=== PATIENT | female | born 2000 | race Caucasian/White ===

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

== ENCOUNTER 2020-07-24 14:36 | Emergency (ER) | payer BC, SELFPAY ==
[2020-07-24 14:41] VITALS: BP 122/81; PULSE 104; RESP 12; TEMP 36.5; O2SAT 100
[2020-07-24 14:45] VITALS: BP 122/81; PULSE 104; RESP 12; TEMP 36.5; O2SAT 100
--- NOTE | 2020-07-24 14:57 | ED.ALLEREA ---
HPI - Allergic Reaction General Chief complaint: Allergic Reaction Stated complaint: HIVES Time Seen by Provider: 07/24/20 14:38 Source: patient Mode of arrival: ambulatory Limitations: no limitations History of Present Illness HPI narrative: 19-year-old [facility] of hives to her bilateral upper and lower eyelids since this morning. Patient took Claritin at 5 AM today for her symptoms. Patient reports history of hives in the past. Patient is currently wearing make-up but reports that she has not changed her make-up for the last 3 months. Patient denies new medications, new soaps or new detergents. Patient denies shortness of breath, wheezing, difficulty swallowing or trouble breathing MD complaint: hives Onset (ago): hour(s) (6) Exposure: unknown Symptoms: rash and itching Severity: mild Treatment prior to arrival: other (Claritin) Previous Allergic Reaction History: none Related Data Home Medications Medication Instructions Recorded Confirmed cetirizine [Zyrtec] 10 mg PO DAILY 11/20/19 07/24/20 bupropion HCl 150 mg PO DAILY 07/24/20 07/24/20 meloxicam 15 mg PO DAILY 07/24/20 07/24/20 tranexamic acid 1,300 mg PO TID 07/24/20 07/24/20 Allergies Allergy/AdvReac Type Severity Reaction Status Date / Time bacitracin Allergy Mild Rash Verified 11/20/19 12:12 [From Neosporin ([id number])] neomycin Allergy Mild Rash Verified 11/20/19 12:12 [From Neosporin ([id number])] polymyxin B Allergy Mild Rash Verified 11/20/19 12:12 [From Neosporin ([id number])] shellfish derived Allergy sob/throat Verified 11/20/19 12:12 swelling Review of Systems Review of Systems: All systems reviewed & are unremarkable except as noted in HPI and below Constitutional: Constitutional: Denies chills, Denies fatigue, Denies fever(s) and Denies weakness ENT: Denies dysphagia, Denies epistaxis and Denies sore throat Respiratory: Respiratory: Denies cough, Denies dyspnea and Denies wheezing Gastrointestinal: Gastrointestinal: Denies diarrhea, Denies nausea and Denies vomiting Integumentary/Breasts: Skin/Breast: Reports rash and Denies skin ulcer Neurologic: Denies vertigo, Denies dizziness, Denies syncope and Denies focal weakness Endocrine: Endocrine: Denies fatigue Allergic/Immunologic: Allergic/Immunologic: Denies lip swelling, Denies throat swelling, Denies tongue swelling and Denies wheezing PMFSH Past Medical History Medical History (Updated 07/24/20 @ 15:04 by Dolores Shahid APRN) Allergies Arthralgia of hip Asthma Implanon in place Kidney infection Tonsillectomy planned Surgical History Surgical History (Updated 07/24/20 @ 15:01 by Dolores Shahid APRN) H/O total hip arthroplasty [place] teeth extracted Social History Social History Smoking status: Never smoker Gender identity (if verbalized by the patient): Female Comments At time of signature, I agree with nursing past medical, surgical, social and family history. There is no relevant family history pertinent to the presenting complaint. Exam Const: General: no acute distress and alert Nutritional Appearance: well nourished Orientation/consciousness: patient oriented x3 HENMT: Head: normal to inspection Mouth: Yes Normal oral and palatal mucosa present and Yes moist mucous membranes Throat: posterior oropharynx normal and uvula midline Neck: Neck: normal visual inspection Resp: Effort & Inspection: normal respiratory effort, not labored, not tachypneic and no use of accessory muscles Auscultation: clear to auscultation bilaterally, no rales and no wheezes Cardio: Rate: regular rate, not bradycardic and not tachycardic Rhythm: regular rhythm and regular rhythm Heart sounds: no murmurs Skin: General skin exam: normal color, no jaundice and no pallor Wounds: no wounds Other: Mildly urticaria noted to bi
== END 2020-07-24 15:08 | disposition home or self-care (01) ==
PROVIDERS: Emergency Provider Nurse Practitioner Family
DX: L50.9 Urticaria, unspecified (principal); J45.909 Unspecified asthma, uncomplicated; D68.0 Von Willebrand disease
CPT/HCPCS: 99213; G0463

== ENCOUNTER 2020-07-25 14:27 | Emergency (ER) | payer BC, SELFPAY ==
[2020-07-25 14:33] VITALS: BP 126/86; PULSE 134; RESP 20; TEMP 37.2; O2SAT 100
--- NOTE | 2020-07-25 14:44 | ED.SKABFB ---
HPI - Skin/Abscess/Foreign Bdy General Chief complaint: Skin/Abscess/Foreign Body Stated complaint: rash Time Seen by Provider: 07/25/20 14:44 Source: patient and RN notes reviewed Mode of arrival: ambulatory Limitations: no limitations History of Present Illness HPI narrative: 19 year old female who presents to [facility] care with complaints of increase blotchy urticaria rash to her forearms and right hip region of body, with itching and bilateral eye edema. Patient states that she was seen here yesterday and was placed on Medrol dose pack and did take medication but rash is more severe today than yesterday. Patient states that she is on daily Zyrtec and has taken that medication also today for history of environmental allergies. Patient states that the only medication change in the past few weeks is the start of Wellbutrin about three weeks ago, denies any new foods, lotions, soaps or any new makeup. Patient denies feelings of dyspnea or any difficulty swallowing MD complaint: rash Tetanus up to date: yes Quality: pruritic Relieving factors: none Associated symptoms: itching Treatments prior to arrival: Benadryl, corticosteroid and other (Zyrtec) Related Data Home Medications Medication Instructions Recorded Confirmed cetirizine [Zyrtec] 10 mg PO DAILY 11/20/19 07/25/20 bupropion HCl 150 mg PO DAILY 07/24/20 07/25/20 meloxicam 15 mg PO DAILY 07/24/20 07/25/20 tranexamic acid 1,300 mg PO TID 07/24/20 07/25/20 sumatriptan succinate 50 mg PO .PRN 07/25/20 07/25/20 Allergies Allergy/AdvReac Type Severity Reaction Status Date / Time bacitracin Allergy Mild Rash Verified 11/20/19 12:12 [From Neosporin ([id number])] neomycin Allergy Mild Rash Verified 11/20/19 12:12 [From Neosporin ([id number])] polymyxin B Allergy Mild Rash Verified 11/20/19 12:12 [From Neosporin ([id number])] adhesive tape Allergy Rash Verified 07/25/20 15:20 shellfish derived Allergy sob/throat Verified 11/20/19 12:12 swelling Review of Systems Review of Systems: Narrative: CONSTITUTIONAL: Denies fever, chills, or sweats. EYES: Denies visual changes, redness, or discharge.reports that eyes feel swollen. no redness or rash noted around eyes or on face or neck ENT: Denies rhinorrhea, congestion, sore throat, or otalgia. CARDIOVASCULAR: Denies chest pain, palpitations, or edema. RESPIRATORY: Denies cough or dyspnea. GASTROINTESTINAL: Denies abdominal pain, nausea, vomiting, or diarrhea. GENITOURINARY: Denies dysuria or hematuria. SKIN: positive for blotchy red urticaria type of rash with itching to forearms and right hip region.. MUSCULOSKELETAL: Denies back pain, joint pain, or myalgia. NEUROLOGIC: Denies headache, numbness, or weakness. PSYCHIATRIC: Positive for anxiety or depression. All systems reviewed & are unremarkable except as noted in HPI and below PMFSH Past Medical History Medical History (Updated 07/26/20 @ 14:52 by Estrellita Trinh NP) Allergies Arthralgia of hip Asthma Implanon in place Kidney infection Von Willebrand's disease Surgical History Surgical History (Updated 07/25/20 @ 17:54 by Estrellita Trinh NP) H/O total hip arthroplasty labral tear History of tonsillectomy and adenoidectomy [place] teeth extracted Family History Family History (Updated 07/25/20 @ 17:53 by Estrellita Trinh NP) Mother Von Willebrands disease Social History Social History (Updated 07/25/20 @ 17:55 by Estrellita Trinh NP) Smoking status: Never smoker Occupation/Education: student Gender identity (if verbalized by the patient): Female Comments At time of signature, agree with nursing past medical, surgical, social and family history. There is no relevant family history pertinent to the presenting complaint Exam Narrative: Exam Narrative: GENERAL: Well-appearing, well-nourished, and in no acute distress. HEAD: Normocephalic, atraumatic. EYES: PERRLA and EOMI. ENT: Nares clear, no r
[2020-07-25] MEDS: methylPREDNISolone ACETATE 80 MG/ML VIAL IM (15:02)
--- NOTE | 2020-07-25 15:18 | PC.NURSE ---
Pt sitting quietly on exam table. No distress noted. Pt calm. Reports itching still present but she is aware will take a bit to resolve.
[2020-07-25 15:30] VITALS: BP 102/68; PULSE 100; RESP 18; O2SAT 100
== END 2020-07-25 15:32 | disposition home or self-care (01) ==
PROVIDERS: Emergency Provider Registered Nurse
DX: L50.9 Urticaria, unspecified (principal); J45.909 Unspecified asthma, uncomplicated; D68.0 Von Willebrand disease; Z96.641 Presence of right artificial hip joint
CPT/HCPCS: 96372; 99213; G0463; J1040

== ENCOUNTER 2021-02-07 08:01 | Emergency (ER) | payer BC, SELFPAY ==
[2021-02-07 08:10] VITALS: BP 125/81; PULSE 83; RESP 16; TEMP 36.6; O2SAT 100
--- NOTE | 2021-02-07 08:10 | ED.EYEPROB ---
HPI - Eye Problem General Chief complaint: Eye Problems Stated complaint: pink eye Source: patient Mode of arrival: ambulatory Limitations: no limitations History of Present Illness HPI Narrative: Patient is a 20-year-old female who presents with right eye redness and discharge starting this a.m. Patient reports photophobia and burning. She reports using saline eyedrops this a.m. without relief. She reports removing her contacts this a.m. as she slept in the last night. She denies significant medical history. She denies all other complaints at this time. chief complaint: eye pain and eye redness Related Data Home Medications Medication Instructions Recorded Confirmed bupropion HCl 150 mg PO DAILY 07/24/20 07/25/20 meloxicam 15 mg PO DAILY 07/24/20 07/25/20 tranexamic acid 1,300 mg PO TID 07/24/20 07/25/20 sumatriptan succinate 50 mg PO .PRN 07/25/20 07/25/20 Allergies Allergy/AdvReac Type Severity Reaction Status Date / Time bacitracin Allergy Mild Rash Verified 11/20/19 12:12 [From Neosporin ([id number])] neomycin Allergy Mild Rash Verified 11/20/19 12:12 [From Neosporin ([id number]-[id number])] polymyxin B Allergy Mild Rash Verified 11/20/19 12:12 [From Neosporin (ori-iry-jhaav)] adhesive tape Allergy Rash Verified 07/25/20 15:20 shellfish derived Allergy sob/throat Verified 11/20/19 12:12 swelling Review of Systems Review of Systems: Narrative: CONSTITUTIONAL: Denies fever, chills, or sweats. EYES: Denies visual changes, reports redness and discharge to right eye. ENT: Denies rhinorrhea, congestion, sore throat, or otalgia. CARDIOVASCULAR: Denies chest pain, palpitations, or edema. RESPIRATORY: Denies cough or dyspnea. GASTROINTESTINAL: Denies abdominal pain, nausea, vomiting, or diarrhea. GENITOURINARY: Denies dysuria or hematuria. SKIN: Denies rash or itching. MUSCULOSKELETAL: Denies back pain, joint pain, or myalgia. NEUROLOGIC: Denies headache, numbness, dizziness, or weakness. PSYCHIATRIC: Denies anxiety or depression. [facility] Past Medical History Medical History Allergies Arthralgia of hip Asthma Implanon in place Kidney infection Von Willebrand's disease Surgical History Surgical History H/O total hip arthroplasty labral tear History of tonsillectomy and adenoidectomy [place] teeth extracted Family History Family History Mother Von Willebrands disease Social History Social History Smoking status: Never smoker Gender identity (if verbalized by the patient): Female Comments At the time of signature, I have reviewed and agree with nursing past medical, surgical, social, and family history unless otherwise noted. Please see nursing chart for further information. There is no relevant family history pertinent to the presenting complaint. Exam Narrative: Exam Narrative: GENERAL: Well-appearing, well-nourished, and in no acute distress. HEAD: Normocephalic, atraumatic. EYES: EOMI. right eye sclera injected, discharge noted. Conjunctiva injected on right eye. ENT: Mucous membranes pink and moist. Nares clear. No rhinorrhea. TMs normal bilaterally. Throat normal. Uvula midline. NECK: AROM. Supple. No lymphadenopathy. CHEST: No respiratory distress. HEART: Regular rate and rhythm. EXTREMITIES: Normal range of motion. No edema. SKIN: Warm, dry, no rash. NEURO: No focal deficits. Alert and oriented x3. Gait steady. PSYCH: Normal affect. No signs of depression or anxiety. Course Vital Signs Vital signs: Reviewed Procedures Other Procedure Procedure 1: Other Procedure: Right eye was anesthetized with 1 drop of tetracaine and anesthesia was achieved. The eye was flushed with eyewash. Lid was inverted and examined. Moist
== END 2021-02-07 08:37 | disposition home or self-care (01) ==
PROVIDERS: Emergency Provider Nurse Practitioner
DX: H18.821 Corneal disorder due to contact lens, right eye (principal); M16.10 Unilateral primary osteoarthritis, unspecified hip; J45.909 Unspecified asthma, uncomplicated; D68.0 Von Willebrand disease
CPT/HCPCS: 99213; A9270; G0463

== ENCOUNTER 2024-03-17 10:45 | Emergency (ER) | payer BC, SELFPAY ==
[2024-03-17 10:53] VITALS: BP 127/88; PULSE 118; RESP 16; TEMP 37.6; O2SAT 100
--- NOTE | 2024-03-17 10:55 | ED.FEMALEGU ---
HPI - Female Genitourinary General Chief complaint: Urogenital-Female Stated complaint: uti Time Seen by Provider: 03/17/24 10:55 Source: patient Mode of arrival: ambulatory Limitations: no limitations History of Present Illness HPI Narrative: Citlali is a 23-year-old female patient presenting to the clinic today with complaints of possible urinary tract infection. She reports symptoms started morning of this week. States she had intercourse on Tuesday night. She also would like STI testing done as this was with a new partner. States that the condom broke during intercourse as have the Nexplanon and her periods are very regular. Did take Plan B. is experiencing burning with urination, frequency, and urgency. She denies any fever, chills, body aches, abdomen pain, or back pain. Denies any vaginal discharge or odor. Related Data Home Medications Medication Instructions Recorded Confirmed bupropion HCl 150 mg 24 hr tablet, 150 mg PO DAILY 07/24/20 07/25/20 extended release meloxicam 15 mg tablet 15 mg PO DAILY 07/24/20 07/25/20 tranexamic acid 650 mg tablet 1,300 mg PO TID during menses 07/24/20 07/25/20 sumatriptan succinate 50 mg tablet 50 mg PO .PRN 07/25/20 07/25/20 Allergies Allergy/AdvReac Type Severity Reaction Status Date / Time bacitracin Allergy Mild Rash Verified 11/20/19 12:12 [From Neosporin ([id number]-inn-vchvx)] neomycin Allergy Mild Rash Verified 11/20/19 12:12 [From Neosporin (zge-mew-waxzr)] polymyxin B Allergy Mild Rash Verified 11/20/19 12:12 [From Neosporin (dod-cyw-szvum)] adhesive tape Allergy Rash Verified 07/25/20 15:20 shellfish derived Allergy sob/throat Verified 11/20/19 12:12 swelling Review of Systems Review of Systems: Pertinent positives per HPI. Patient denies any fever, chills, rash, headache, visual changes, dizziness, cough, runny nose, sore throat, shortness of breath, chest pain, palpitations, nausea, vomiting, diarrhea, constipation, abdominal pain. PMFSH Past Medical History Medical History Allergies Arthralgia of hip Asthma Implanon in place Kidney infection Von Willebrand's disease Surgical History Surgical History H/O total hip arthroplasty labral tear History of tonsillectomy and adenoidectomy [place] teeth extracted Family History Family History Mother Von Willebrands disease Social History Social History Smoking status: Never smoker Occupation/Education: student Gender identity (if verbalized by the patient): Female Comments At the time of my signature, I reviewed and agree with the nursing past medical, surgical, social, and family history. There is no relevant family history pertinent to the patient complaint. Exam Narrative: General: Well-developed, well nourished, in no apparent distress. Head: Normocephalic, atraumatic. Cardio: Regular rate and rhythm, s1 and s2 normal, no murmur appreciated. Resp: Clear to auscultation bilaterally, no rhonchi, rales, wheezing or rubs. Abdomen: Soft, pliable, bowel sounds present in all quadrants, non-tender to palpation, no organomegly, no CVAT tenderness. Course Course Emergency Course: Portions of this record may have been created with voice recognition software. Level of Care: Express Care Visit Vital Signs Vital signs: Vital Signs Temperature 37.6 C 03/17/24 10:53 Pulse Rate 118 H 03/17/24 10:53 Respiratory Rate 16 03/17/24 10:53 Blood Pressure 127/88 03/17/24 10:53 Pulse Oximetry 100 03/17/24 10:53 Temperature 37.6 C 03/17/24 10:53 Pulse Rate 118 H 03/17/24 10:53 Respiratory Rate 16 03/17/24 10:53 Blood Pressure 127/88 03/17/24 10:53 Pulse Oximetry 100 03/17/24 10:53
[2024-03-17 19:21] LABS: Trichomonas Vag PCR NOT DETECTED (NOT DETECTE)
[2024-03-17 19:45] LABS: Chlamydia trachomatis NOT DETECTED (NOT DETECTE); Neisseria gonorrhoeae PCR NOT DETECTED (NOT DETECTE)
== END 2024-03-17 11:13 | disposition home or self-care (01) ==
PROVIDERS: Emergency Provider Nurse Practitioner Family
DX: N30.01 Acute cystitis with hematuria (principal); B96.20 Unspecified Escherichia coli [E. coli] as the cause of diseases classified elsewhere; Z11.3 Encounter for screening for infections with a predominantly sexual mode of transmission; J45.909 Unspecified asthma, uncomplicated; D68.00 Von Willebrand disease, unspecified
CPT/HCPCS: 81003; 87077; 87086; 87088; 87186; 87491; 87591; 87661; 99204; G0463

== ENCOUNTER 2024-04-24 11:15 | Emergency (ER) | payer BC, SELFPAY ==
--- NOTE | 2024-04-24 11:18 | ED.GENADULT ---
HPI - General Adult General Chief complaint: Neck Pain/Injury Stated complaint: Swollen Neck Time Seen by Provider: 04/24/24 11:23 Source: patient, RN notes reviewed and old records reviewed Mode of arrival: ambulatory Limitations: no limitations History of Present Illness HPI narrative: 23-year-old female to Express Care for complaint left-sided neck swelling and tenderness for 2 days. Patient endorses left ear pain for 3 days and states she was treated for strep throat approximately 3-4 weeks ago. Patient has not attempted to treat at home. Patient endorses history of tonsillectomy. Patient denies fever, cough, shortness of breath, difficulty swallowing, headache, sore throat. Patient able to tolerate fluids by mouth. Respirations even and nonlabored. Patient able to speak in full sentences without difficulty. Patient in no acute distress. Related Data Home Medications Medication Instructions Recorded Confirmed sertraline 25 mg tablet 25 mg PO DAILY 04/24/24 04/24/24 Allergies Allergy/AdvReac Type Severity Reaction Status Date / Time bacitracin Allergy Mild Rash Verified 04/24/24 11:30 [From Neosporin (jxj-wdo-jyuvg)] neomycin Allergy Mild Rash Verified 04/24/24 11:30 [From Neosporin (soy-ypd-gtdlk)] polymyxin B Allergy Mild Rash Verified 04/24/24 11:30 [From Neosporin (xdb-keh-bvcbn)] adhesive tape Allergy Rash Verified 04/24/24 11:30 shellfish derived Allergy sob/throat Verified 04/24/24 11:30 swelling Review of Systems Review of Systems: All systems reviewed & are unremarkable except as noted in HPI and below Constitutional: Constitutional: Reports as per HPI, Denies body ache(s), Denies chills, Denies fatigue and Denies fever(s) Eyes: Eyes: Reports no additional eye complaints ENT: Reports as per HPI, Denies dysphagia, Reports otalgia (left 3 days), Denies hoarseness, Denies nasal congestion, Denies sore throat and Reports throat swelling (left side 2 days) Cardiovascular: Cardiovascular: Reports no additional cardiovascular complaints, Denies chest pain and Denies dyspnea Respiratory: Respiratory: Reports no additional respiratory complaints, Denies cough and Denies dyspnea Musculoskeletal: Musculoskeletal: Reports no additional musculoskeletal complaints Neurologic: Reports system reviewed and no additional complaints, except as documented Psychiatric: Psychiatric: Reports no additional psychiatric complaints PMFSH Past Medical History Medical History Allergies Arthralgia of hip Asthma Implanon in place Kidney infection Von Willebrand's disease Surgical History Surgical History H/O total hip arthroplasty labral tear History of tonsillectomy and adenoidectomy [place] teeth extracted Family History Family History Mother Von Willebrands disease Social History Social History Smoking status: Never smoker Occupation/Education: student Gender identity (if verbalized by the patient): Female Comments At the time of my signature, I reviewed and agree with the nursing past medical, surgical, social, and family history. There is no relevant family history pertinent to the patient complaint. Exam Const: General: cooperative, no acute distress, well developed, alert, tired appearing, well groomed and well nourished Nutritional Appearance: well nourished Orientation/consciousness: patient oriented x3 Limitations: no limitations HENMT: Head: normal to inspection Ears: external ears normal, Abnormal EAC present erythema on the left, edema on the left and EAC tenderness on the left and TM abnormal dull on the left and with fluid behind the TM on the left Face/Nose/Sinus: Normal external nose present, Normal nare
[2024-04-24 11:20] VITALS: BP 118/86; PULSE 110; RESP 16; TEMP 36.9; O2SAT 100
== END 2024-04-24 11:48 | disposition home or self-care (01) ==
PROVIDERS: Emergency Provider Nurse Practitioner Family
DX: R59.0 Localized enlarged lymph nodes (principal); H66.92 Otitis media, unspecified, left ear; J45.909 Unspecified asthma, uncomplicated; D68.00 Von Willebrand disease, unspecified
CPT/HCPCS: 99213; G0463

== ENCOUNTER 2024-07-20 13:12 | Emergency (ER) | payer BC, SELFPAY ==
[2024-07-20 13:21] VITALS: BP 139/90; PULSE 114; RESP 16; TEMP 36.9; O2SAT 100
--- NOTE | 2024-07-20 13:27 | ED.FEMALEGU ---
HPI - Female Genitourinary General Chief complaint: Urogenital-Female Stated complaint: uti symptoms Source: patient and RN notes reviewed Mode of arrival: ambulatory Limitations: no limitations History of Present Illness HPI Narrative: 23 y/o female presented for c/o urinary frequency, urgency, hesitancy and he tingling sensation with urination. Onset 3 days. Denies hematuria, nausea, vomiting, abdominal pain, flank pain, constipation, diarrhea, fevers or chills. Last UTI 04/02 per pt. Related Data Home Medications Medication Instructions Recorded Confirmed sertraline 25 mg tablet 25 mg PO DAILY 04/24/24 07/20/24 albuterol sulfate 90 mcg/actuation 90 mcg inhalation DIRECTED 07/20/24 07/20/24 aerosol inhaler dextroamphetamine-amphetamine 15 15 mg DIRECTED 07/20/24 07/20/24 mg tablet Allergies Allergy/AdvReac Type Severity Reaction Status Date / Time latex Allergy Intermediate Hives Verified 07/20/24 13:32 bacitracin Allergy Mild Rash Verified 04/24/24 11:30 [From Neosporin (dro-wae-zrrri)] neomycin Allergy Mild Rash Verified 04/24/24 11:30 [From Neosporin (how-hbr-qluio)] polymyxin B Allergy Mild Rash Verified 04/24/24 11:30 [From Neosporin (wzy-jsr-rvyqn)] adhesive tape Allergy Rash Verified 04/24/24 11:30 shellfish derived Allergy sob/throat Verified 04/24/24 11:30 swelling Review of Systems Review of Systems: CONSTITUTIONAL: Denies body aches, fever, chills, or sweats. CARDIOVASCULAR: Denies chest pain, palpitations, or edema. RESPIRATORY: Denies cough or dyspnea. GASTROINTESTINAL: Denies abdominal pain, nausea, vomiting, or diarrhea. GENITOURINARY: Reports dysuria, frequency, urgency, denies hematuria, flank pain SKIN: Denies rash, itching, or wounds. MUSCULOSKELETAL: Denies back pain or myalgia. [facility] Past Medical History Medical History Allergies Arthralgia of hip Asthma Implanon in place Kidney infection Von Willebrand's disease Surgical History Surgical History H/O total hip arthroplasty labral tear History of tonsillectomy and adenoidectomy [place] teeth extracted Family History Family History Mother Von Willebrands disease Social History Social History Smoking status: Never smoker Occupation/Education: student Gender identity (if verbalized by the patient): Female Comments At time of signature, I have reviewed and agree with nursing past medical, surgical, social and family history unless otherwise noted. Please see nursing chart for further information. There is no relevant family history pertinent to the presenting complaint Exam Narrative: GENERAL: Well-appearing ENT: Mucous membranes pink and moist. CHEST: No respiratory distress. Clear to auscultation. HEART: Regular rate and rhythm. ABDOMEN: Soft, nontender, nondistended, normal active bowel sounds. No CVA tenderness NEURO: No focal deficits. Alert and oriented x3. Gait steady. PSYCH: Normal affect. Course Course Emergency Course: Patient is aware of diagnosis, understands and agrees to treatment plan. Anticipatory guidance given. Patient agrees to follow-up as directed and is aware of reasons to seek care at the emergency department. Portions of this record may have been created with voice recognition software Level of Care: Express Care Visit Vital Signs Vital signs: Vital Signs Temperature 98.5 F 07/20/24 13:21 Pulse Rate 114 H 07/20/24 13:21 Respiratory Rate 16 07/20/24 13:21 Blood Pressure 139/90 07/20/24 13:21 Pulse Oximetry 100 07/20/24 13:21 Temperature 98.5 F 07/20/24 13:21 Pulse Rate 114 H 07/20/24 13:21 Respiratory Rate 16 07/20/24 13:21 Blood Pressure 139/90 07/20/24 13:21 Puls
[2024-07-20 13:33] VITALS: BP 139/90; PULSE 114; RESP 16; TEMP 36.9; O2SAT 100
[2024-07-20 13:34] LABS: EDUAAPPEAR Clear; EDUABILI Negative (Negative); EDUABLOOD Negative (Negative); EDUACOLOR1 Yellow; EDUAGLUCOSE Negative (Negative); EDUAKETONE Negative (Negative); EDUALEUKO Trace (Negative); EDUANITRATE Negative (Negative); EDUAPROTEIN Negative (Negative); EDUASPGRAVITY 1.015; EDUAUROBILI 0.2
[2024-07-20 13:45] LABS: BEDSIDEPREGUCG Negative (Negative)
== END 2024-07-20 13:43 | disposition home or self-care (01) ==
PROVIDERS: Emergency Provider Nurse Practitioner Family
DX: R35.0 Frequency of micturition (principal); J45.909 Unspecified asthma, uncomplicated; D68.00 Von Willebrand disease, unspecified
CPT/HCPCS: 81003; 81025; 87086; 87181; 99213; G0463

== ENCOUNTER 2025-05-19 14:59 | Emergency (ER) | payer BC, SELFPAY ==
--- NOTE | ~2025-05-19 | XR_ITS ---
EXAM: XR abdomen/kub 1V DATE: 05/19/2025 15:35 HISTORY: abdominal pain, right side,blood in urine . COMPARISON: None available. FINDINGS: Lung bases and upper abdomen excluded from the diepe-gz-pxey. Mildly dilated loop of small bowel over the pelvis, otherwise normal bowel gas pattern. No organomegaly. 2 mm calcification proje cting over the right renal shadow. Unfused posterior arch at S1. Regional bones and soft tissues norm al for age. IMPRESSION: Possible 2 mm right nephrolith. Mildly dilated small bowel loop over the midline pelvis m ay reflect focal ileus. Consider CT of the abdomen and pelvis for further evaluation. Reviewed, dictated and finalized at location K. IMPRESSION: Possible 2 mm right nephrolith. Mildly dilated small bowel loop ove r the midline pelvis may reflect focal ileus. Consider CT of the abdomen and pe lvis for further evaluation.
[2025-05-19 15:14] VITALS: BP 124/85; PULSE 104; RESP 16; TEMP 36.9; O2SAT 99
--- NOTE | 2025-05-19 15:23 | ED_ITS ---
HPI - Abdominal Pain General Chief Complaint: Abdominal Pain Stated Complaint: right side pain Time Seen by Provider: 05/19/25 15:01 Source: patient Mode of arrival: ambulatory Limitations: no limitations History of Present Illness HPI narrative: Patient is a 24-year-old female who presents with right-sided but of abdomen pain that woke her up out of her sleep at 1:30 a.m. in the morning. States it was sharp and stabbing and then subsided. Reports it has been a dull ache since. Reports that radiates to her back. Had normal bowel movement today. Denies any fever, chills, vomiting or diarrhea. Has had mild nausea. Reports calcifications and kidneys and is currently on her menstrual cycle. Related Data Home Medications ?Medication ?Instructions ?Recorded ?Confirmed ?Last Taken ?Type sertraline 25 mg tablet 25 mg PO DAILY 04/24/24 07/20/24 Unknown History albuterol sulfate 90 mcg/actuation 90 mcg inhalation DIRECTED 07/20/24 1 Unknown History aerosol inhaler dextroamphetamine-amphetamine 15 15 mg PO DIRECTED 07/20/24 05/19/25 Unknown History mg tablet Allergies Allergy/AdvReac Type Severity Reaction Status Date / Time latex Allergy Intermediate Hives Verified 05/19/25 15:14 bacitracin (From Neosporin Allergy Mild Rash Verified 05/19/25 15:14 ([id number])) neomycin (From Neosporin Allergy Mild Rash Verified 05/19/25 15:14 ([id number])) polymyxin B (From Neosporin Allergy Mild Rash Verified 05/19/25 15:14 ([id number]-[id number])) adhesive tape Allergy Rash Verified 05/19/25 15:14 shellfish derived Allergy sob/throat Verified 05/19/25 15:14 swelling Review of Systems Review of Systems: All systems reviewed & are unremarkable except as noted in HPI and below Constitutional: Constitutional: Denies body ache(s), Denies chills, Denies fatigue, Denies fever(s), Denies headache(s), Denies malaise and Denies weakness Eyes: Eyes: Denies blurry vision, Denies irritation and Denies loss of vision ENT: Denies otalgia, Denies headache(s), Denies nasal discharge, Denies sinus pain and Denies sore throat Cardiovascular: Cardiovascular: Denies chest pain, Denies irregular heart rhythm and Denies dyspnea Respiratory: Respiratory: Denies dyspnea Gastrointestinal: Gastrointestinal: Reports abdominal pain, Denies melena, Denies hematochezia, Denies diarrhea, Denies nausea and Denies vomiting Musculoskeletal: Musculoskeletal: Denies back pain, Denies myalgias and Denies arthralgias Integumentary/Breasts: Skin/Breast: Denies pruritus and Denies rash Neurologic: Denies headache(s), Denies loss of vision and Denies weakness Psychiatric: Psychiatric: Reports no additional psychiatric complaints Endocrine: Endocrine: Denies fatigue PMFSH Past Medical History Medical History Von Willebrand's disease Allergies Arthralgia of hip Asthma Kidney infection Implanon in place Surgical History Surgical History History of tonsillectomy and adenoidectomy H/O total hip arthroplasty labral tear [place] teeth extracted Family History Family History Mother Von Willebrands disease Social History Social History Smoking status: Never smoker Occupation/Education: student Gender identity (if verbalized by the patient): Female Comments At time of signature, agree with nursing past medical, surgical, social and family history. There is no relevant family history pertinent to the presenting complaint. Exam Const: General: cooperative, healthy appearing, comfortable, no acute distress and well nourished Nutritional Appearance: well nourished Orientation/consciousness: patient oriented x3 Limitations: no limitations HENMT: Head: normal to inspection, normocephalic and atraumatic Ears: hearing grossly normal bilaterally and external ears normal Face/Nose/Sinus: Normal external nose present, normal facial exam and face symmetric Face and sinus: normal facial exam and face symmetric Mouth: Yes lip normal Eyes: General: appearance normal, both eyes and all related structures Alignment and Position: alignment normal and position normal Periorbital: periorbital findings normal Eyelids: eyelids normal Pupils: Equal, round and reactive pupils present EOM: EOMs intact bilaterally Neck: Neck: normal visual inspection, full ROM and supple Chest: Chest palpation & inspection: normal inspection of the chest Resp: Effort & Inspection: normal respiratory effort and able to speak in complete sentences Auscultation: clear to auscultation bilaterally Cardio: Rate: regular rate Rhythm: regular rhythm Heart sounds: S1 normal heart sound present and S2 normal heart sound present GI: Inspection: normal to inspection GI Palp: Yes abdominal tenderness (RUQ), Yes Soft to palpation, Yes Tenderness to palpation present (GI) and Yes Guarding due to palpation present (GI) Auscultation: normal bowel sounds Rectal Exam: deferred Back/Spine/Pelvis: Back: CVA tenderness (right) Skin: General skin exam: normal color and no rashes or lesions noted Neuro: General: patient oriented x3 and moves all extremities Cranial nerves: Yes Equal, round and reactive pupils present Speech: normal speech Gait exam (Neuro): Normal gait present Extrem: General: normal to inspection, full ROM and no edema Psych: Appearance: grossly normal and well kempt Mental Status: mental status grossly normal Speech and movement: Normal speech and movement present Affect: normal affect Attitude: cooperative Thought process: Normal thought process present Course Course Emergency Course: Patient is being transferred to [facility] for further workup and evaluation. X-ray shows possible kidney stone and recommended advanced imaging. Patient may also need pain management and labs. Portions of this record may have been created with voice recognition software Level of Care: Express Care Visit Vital Signs Vital signs: Vital Signs Temperature 36.9 C 05/19/25 15:14 Pulse Rate 104 H 05/19/25 15:14 Respiratory Rate 16 05/19/25 15:14 Blood Pressure 124/85 05/19/25 15:14 Pulse Oximetry 99 05/19/25 15:14 Temperature 36.9 C 05/19/25 15:14 Pulse Rate 104 H 05/19/25 15:14 Respiratory Rate 16 05/19/25 15:14 Blood Pressure 124/85 05/19/25 15:14 Pulse Oximetry 99 05/19/25 15:14 Reviewed Transfer Transfered to: [facility] Transportation: Other (Private auto) Transfer rationale: Patient is being transferred to [facility] for further workup and evaluation. X-ray shows possible kidney stone and recommended advanced imaging. Patient may also need pain management and labs. Accepting physician: Kaley CLARK MDM - Abdominal Pain MDM Narrative Medical decision making narrative: Patient is being transferred to [facility] for further workup and evaluation. X-ray shows possible kidney stone and recommended advanced imaging. Patient may also need pain management and labs. Differential Diagnosis Differential diagnosis: Likely abdominal pain, calculus of kidney and other (Cholecystitis) Medical Records Attestation: I reviewed the patient's medical records. Lab Data Labs: Lab Results 05/19/25 Range/Units 15:22 POC Urine Color Yellow POC Urine Clarity Clear POC Urine pH 5.5 POC Ur Specif [place] 1.025 POC Urine Protein Trace (Negative) POC Ur Glucose (UA) Negative (Negative) POC Urine Ketones Negative (Negative) POC Urine Blood 3+ (Negative) POC Urine Nitrite Negative (Negative) POC Urine Bilirubin Negative (Negative) POC Urine Urobilinogen 0.2 POC U Leukocyte Esteras Negative (Negative) Imaging Data Radiologist's impression: ITS Impressions Abdomen X-Ray 05/19/25 15:54 IMPRESSION: Possible 2 mm right nephrolith. Mildly dilated small bowel loop over the midline pelvis may reflect focal ileus. Consider CT of the abdomen and pelvis for further evaluation. EXAM: XR abdomen/kub 1V DATE: 05/19/2025 15:35 HISTORY: abdominal pain, right side,blood in urine . COMPARISON: None available. FINDINGS: Lung bases and upper abdomen excluded from the [id number]-ze-ejmq. Mildly dilated loop of small bowel over the pelvis, otherwise normal bowel gas pattern. No organomegaly. 2 mm calcification projecting over the right renal shadow. Unfused posterior arch at S1. Regional bones and soft tissues normal for age. IMPRESSION: Possible 2 mm right nephrolith. Mildly dilated small bowel loop over the midline pelvis may reflect focal ileus. Consider CT of the abdomen and pelvis for further evaluation. Discharge Plan Discharge Clinical Impression: Abdominal pain Qualifiers: Abdominal location: right upper quadrant Qualified Code(s): R10.11 - Right upper quadrant pain Patient Disposition: Acute Care Hospital Condition: Stable Patient Language: Ukrainian Prescriptions: No Action dextroamphetamine-amphetamine 15 mg tablet 15 mg PO DIRECTED albuterol sulfate 90 mcg/actuation HFA aerosol inhaler 90 mcg INHALATION DIRECTED nitrofurantoin monohyd/m-cryst [Macrobid] 100 mg capsule 100 mg PO Q12H 5 Days Qty: 10 0RF Rx Instructions: must administer with a meal/food sertraline 25 mg tablet 25 mg PO DAILY Follow-up/Referrals: Kameron Davila [Other] Time of Disposition: 16:21
[2025-05-19 15:24] LABS: EDUAAPPEAR Clear; EDUABILI Negative (Negative); EDUABLOOD 3+ (Negative); EDUACOLOR1 Yellow; EDUAGLUCOSE Negative (Negative); EDUAKETONE Negative (Negative); EDUALEUKO Negative (Negative); EDUANITRATE Negative (Negative); EDUAPH 5.5; EDUAPROTEIN Trace (Negative); EDUASPGRAVITY 1.025; EDUAUROBILI 0.2
== END 2025-05-19 16:23 | disposition short-term general hospital (02) ==
PROVIDERS: Emergency Provider Nurse Practitioner Family
DX: R10.11 Right upper quadrant pain (principal); D68.00 Von Willebrand disease, unspecified; J45.909 Unspecified asthma, uncomplicated
CPT/HCPCS: 74018; 81003; 99213; G0463

== ENCOUNTER 2025-08-02 23:13 | Emergency (ER) | payer BC, SELFPAY ==
--- OUTSIDE RECORDS SUMMARY | 2019-12-12 11:00 | XMS_ITS | Continuity of Care Document ---
Author Organization [facility] [place] Address [address] [place] [address] [address] [place] [address] Phone Care Team Providers Care Curtain Mender Name Role Phone Lucas PT,MPT,ATC, Juan Unavailable Unavai lable Procedures Procedure Date Therapeutic Activities Neuromuscular Re-Ed Manual Therapy Therapeutic Activities Neuromuscular Re-Ed Manual Therapy Therapeutic Activities Neuromuscular Re-Ed Manual Therapy Therapeutic Activities Neuromuscular Re-Ed Manual Therapy Therapeutic Activities Neuromuscular Re-Ed Manual Therapy Progress Note Therapeutic Activities Neuromuscular Re-Ed Manual Therapy Therapeutic Activities Neuromuscular Re-Ed Manual Therapy Therapeutic Activities Neuromuscular Re-Ed Manual Therapy Therapeutic Activities Neuromuscular Re-Ed Manual Therapy Therapeutic Activities Neuromuscular Re-Ed Manual Therapy Therapeutic Activities Manual Therapy Neuromuscular Re-Ed PT Evaluation Low Complexity Therapeutic Activities Neuromuscular Re-Ed Manual Therapy Advance Directives Directive Yes / No Effective Date File Name No Information Encounters Encounter Description Practice Location Reason(s) For Visit Diagnoses Date Provider Providers Copied on Encounter [facility], [address], [place], [place], [id number], tel:[phone] [place] No Information Dec-0 4- 0 Zavala Juan. , [place], [place]. Referring Provider: Raymundo Gibson, [address], [place], [address]. tel:[phone] [facility] [address], [place], [place], [id number], tel:[phone] [place] No Information 2 0 Lucas Oshean. , [place], [place]. Referring Provider: Raymundo Gibson, [address] [facility] , [place], [address]. tel:[phone] [facility] [address], [place], [place], [address], [place] tel:[phone] [place] No Information Nov-2 0 Yoon Sandoval. . Referring Provider: Raymundo Gibson, [address] [facility] , [place], [address]. tel:[phone] [facility] [address], [place], [place], [address], [place] tel:[phone] [place] No Information Nov-2 0 Lucas Juan. , [place], [place]. Referring Provider: Raymundo Gibson, [address] [facility] , [place], [address]. tel:[phone] [facility], [address], [place], [place], [address], [place] tel:[phone] [place] No Information 0 Lucas Oshean. , [place], [place]. Referring Provider: Raymundo Gibson, [address] [facility] [address], [place], [address]. tel:[phone] [facility], [place], [place], [address], [place] tel:[phone] [place] No Information 0 Zavala Juan. , [place], [place]. Referring Provider: Raymundo Gibson, [address] [facility] [address], [place], [address]. tel:[phone] [facility], [place], [place], [address], [place] tel:[phone] [place] No Information 0 Zavala Juan. , [place], [place]. Referring Provider: Raymundo Gibson, [address] [facility] [address], [place], [address]. tel:[phone] [facility], [place], [place], [address], [place] tel:[phone] [place] No Information 0 Zavala Juan. , [place], [place]. Referring Provider: Raymundo Gibson, [address] [facility] , [place], [address]. tel:[phone] [facility], [place], [place], [address], [place] tel:[phone] [place] No Information 0 Zavala Juan. , [place], [place]. Referring Provider: Raymundo Gibson, 1 [facility] [address], [place], [address]. tel:[phone] [facility], [place], [place], [address], [place] tel:[phone] [place] No Information 0 Zavala Juan. , [place], [place]. Referring Provider: Raymundo Gibson, 1 [facility] [address], [place], [address]. tel:[phone] [facility], [place], [place], [address], tel:[phone] [place] No Information 0 [place], [place], [place]. Referring Provider: Raymundo Gibson, 1 [facility] [address], [place], [address]. tel:[phone] [facility] [place], [address], [place], [place], [address], tel:[phone] [place] No Information 0 [place], [place], [place]. Referring Provider: Raymundo Gibson, 1 [facility] [address], [place], [address]. tel:[phone] Family History Family Member Type Diagnosis Age At Onset No Information Payers Payer name Insurance type Covered democrat ID Authormac jarquin(s) [facility] [id number] Social History Type Description Quantity Date Captured Comments Sex Female Smoking Status No Information Chief Complaint And Reason For Visit No Information Reason For Referral Reason For Referral No Information History Of Present Illness Encounter Date Complaint History Of Prese nt Illness No Information Functional Status Date Functional Assessmen t No Information Instructions Date Instruction Additional Infor mation No Information Assessments Type Assessment Date No Information Patient Care Teams Name Effective Dates (start - stop) Status Members No Information
--- OUTSIDE RECORDS SUMMARY | 2024-09-24 06:11 | XMS_ITS | Continuity of Care Document ---
Author Organization [employer] Address [address] [facility] [address] [place] [address] Phone Care Team Providers Care Economics Department Chair Name Role Phone Simon PT, DPT, SCS, Brittney Unavailable Unavailable Procedures Procedure Date Progress Note Therapeutic Activities Neuromuscular Re-Ed Therapeutic Exercise Therapeutic Activities Neuromuscular Re-Ed Therapeutic Exercise Therapeutic Activities Neuromuscular Re-Ed Therapeutic Exercise Therapeutic Activities Neuromuscular Re-Ed Therapeutic Exercise Therapeutic Activities Neuromuscular Re-Ed Therapeutic Exercise Therapeutic Activities Neuromuscular Re-Ed Therapeutic Exercise Therapeutic Activities Neuromuscular Re-Ed Therapeutic Exercise Manual Therapy Therapeutic Activities Therapeutic Activities Neuromuscular Re-Ed Manual Therapy PT Evaluation Moderate Complexity Therapeutic Activities Therapeutic Exercise Therapeutic Activities Neuromuscular Re-Ed Therapeutic Exercise Therapeutic Activities Neuromuscular Re-Ed Therapeutic Exercise Therapeutic Activities Neuromuscular Re-Ed Therapeutic Exercise PT Re-Evaluation Therapeutic Activities Neuromuscular Re-Ed Therapeutic Exercise Therapeutic Activities Neuromuscular Re-Ed Therapeutic Exercise Manual Therapy Progress Note Therapeutic Activities Neuromuscular Re-Ed Therapeutic Exercise Therapeutic Activities Neuromuscular Re-Ed Therapeutic Exercise Manual Therapy Therapeutic Activities Neuromuscular Re-Ed Therapeutic Exercise Manual Therapy Therapeutic Activities Therapeutic Exercise Manual Therapy Therapeutic Activities Neuromuscular Re-Ed Therapeutic Exercise Manual Therapy Therapeutic Activities Neuromuscular Re-Ed Therapeutic Exercise Manual Therapy PT Evaluation Moderate Complexity Therapeutic Activities Neuromuscular Re-Ed Therapeutic Exercise Advance Directives Directive Yes / No Effective Date File Name No Information Encounters Encounter Description Practice Location Reason(s) For Visit Diagnoses Date Provider Providers Copied on Encounter [facility] [facility] [place], [place], [id number], tel:[phone] [facility] No Information Simon Lugo. . [facility], [place], [place], [id number], tel:[phone] [facility] No Information Simon Lugo. . Referring Provider: Kameron Davila, [address], [place], [address]. tel:[phone] [facility], [address], [place], [place], [id number], [place] tel:[phone] [facility] [place] No Information Montes Brittney. . Referring Provider: Kameron Davila, [address], [place], [address]. tel:[phone] [facility], [address], [place], [place], [id number], [place] tel:[phone] [facility] [place] No Information Eliceo Herman. . Referring Provider: Kameron Davila, [address], [place], [address]. tel:[phone] [facility], [address], [place], [place], [address], [place] tel:[phone] [facility] [place] No Information Montes Brittney. . Referring Provider: Kameron Davila, [address], [place], [address]. tel:[phone] [facility], [address], [place], [place], [id number], [place] tel:[phone] [facility] [place] No Information Montes Brittney. . Referring Provider: Kameron Davila, [address], [place], [address]. tel:[phone] [facility], [address], [place], [place], [id number], [place] tel:[phone] [facility] [place] No Information Montes Brittney. . Referring Provider: Kameron Davila, [address], [place], [address]. tel:[phone] [facility], [address], [place], [place], [address], [place] tel:[phone] [facility] [place] No Information Montes Brittney. . Referring Provider: Kameron Davila, [address], [place], [address]. tel:[phone] [facility], [address], [place], [place], [id number], [place] tel:[phone] [facility] No Information Montes Brittney. . Referring Provider: Kameron Davila, [address], [place], [address]. tel:[phone] [facility], [address], [place], [place], [id number], [place] tel:[phone] [facility] No Information Samp Rosanne. . Referring Provider: Kameron Davila, [address], [place], [address]. tel:[phone] [facility], [address], [place], [place], [address], [place] tel:[phone] [facility] No Information Montes Brittney. . Referring Provider: Kameron Davila, [address], [place], [address]. tel:[phone] [facility], [address], [place], [place], [address], [place] tel:[phone] [place] No Information Jane Khan. . Referring Provider: Raymundo Gibson, [address] [facility] [address], [place], [address]. tel:[phone] [facility], [address], [place], [place], [address], [place] tel:[phone] [place] No Information Pribble Erin. . Referring Provider: Michelet Rush [facility] [address], [place], [address]. tel:[phone] [facility], [address], [place], [place], [id number], [place] tel:[phone] [place] No Information Pribble Erin. . Referring Provider: Raymundo Gibson [address] [place], [place] [address], [place], [address]. tel:[phone] [facility], [address] [address], [place], [place], [address], [place] tel:[phone] [place] No Information Pribble Erin. . Referring Provider: Raymundo Gibson [address] [facility] [address], [place], [address]. tel:[phone] [facility], [address], [place], [place], [id number], [place] tel:[phone] [facility] [place] No Information Pribble Erin. . Referring Provider: Raymundo Gibson [address] [facility] [address], [place], [address]. tel:[phone] [facility], [address], [place], [place], [id number], [place] tel:[phone] [facility] [place] No Information Pribble Erin. . Referring Provider: Raymundo Gibson [address] [facility] [address], [place], [address]. tel:[phone] [facility], [address], [place], [place], [id number], [place] tel:[phone] [facility] [place] No Information Pribble Erin. . Referring Provider: Raymundo Gibson [address] [place] [address] [address], [place], [address]. tel:[phone] [facility], [address] [address], [place], [place], [id number], tel:[phone] [facility] [place] No Information Pribble Erin. . Referring Provider: Raymundo Gibson [address] [place], [place] [address], [place], [address]. tel:[phone] [facility], [address] [address], [place], [place], [id number], [place] tel:[phone] [facility] No Information Pribble Erin. . Referring Provider: Raymundo Gibson [address] [place] [address] [address], [place], [address]. tel:[phone] [facility], [address] [address], [place], [place], [id number], tel:[phone] [facility] No Information Pribble Erin. . Referring Provider: Raymundo Gibson [address] [facility] [address], [place], [address]. tel:[phone] [facility], [address], [id number], tel:[phone] [facility] No Information Pribble Erin. . Referring Provider: Raymundo Gibson [address] [place] [address] [address], [place], [address]. tel:[phone] [facility], [address] [address], [place], [place], [id number], tel:[phone] [facility] [place] No Information Pribble Erin. . Referring Provider: Michelet Rush [facility] [address], [place], [address]. tel:[phone] Family History Family Member Type Diagnosis Age At Onset No Information Payers Payer name Insurance type Covered alliance party ID Authormac coxquentin(s) [facility] [id number] Social History Type Description Quantity Date Captured [...]
[2025-08-02 23:18] VITALS: BP 129/89; PULSE 92; RESP 18; TEMP 36.4; O2SAT 100
[2025-08-02 23:27] VITALS: BP 132/93; PULSE 87; RESP 22; TEMP 36.8; O2SAT 100
--- NOTE | 2025-08-02 23:27 | ED.ALLEREA ---
HPI - Allergic Reaction General Chief complaint: Allergic Reaction Stated complaint: allergic reaction to shellfish Time Seen by Provider: 08/02/25 23:22 Source: patient and family Mode of arrival: EMS Limitations: no limitations History of Present Illness HPI narrative: This is a 24-year-old female with history of von Willebrand's disease who presents to the ED for allergic reaction. Patient states that earlier she had [employer] and believes she was exposed to shellfish which she has known allergies to. Shortly after eating it, she began to have shortness of breath, throat swelling, and a rash to her face. She tried taking Benadryl with mild improvement but her symptoms have continued prompting her to come to the ED. Related Data Home Medications ?Medication ?Instructions ?Recorded ?Confirmed ?Last Taken ?Type sertraline 25 mg tablet 25 mg PO DAILY 04/24/24 07/20/24 Unknown History albuterol sulfate 90 mcg/actuation 90 mcg inhalation DIRECTED 07/20/24 07/20/24 Unknown History aerosol inhaler dextroamphetamine-amphetamine 15 15 mg PO DIRECTED 07/20/24 05/19/25 Unknown History mg tablet Allergies Allergy/AdvReac Type Severity Reaction Status Date / Time latex Allergy Intermediate Hives Verified 08/02/25 23:27 bacitracin (From Neosporin Allergy Mild Rash Verified 08/02/25 23:27 ([id number])) neomycin (From Neosporin Allergy Mild Rash Verified 08/02/25 23:27 ([id number]-wwv-sagaf)) polymyxin B (From Neosporin Allergy Mild Rash Verified 08/02/25 23:27 ([id number]-[id number])) adhesive tape Allergy Rash Verified 08/02/25 23:27 shellfish derived Allergy sob/throat Verified 08/02/25 23:27 swelling Review of Systems Review of Systems: Gen.: Denies fevers or chills Eyes: Denies eye pain or visual change ENT: Denies congestion Respiratory: As per HPI CV: Denies chest pain or palpitations GI: Denies abdominal pain nausea, emesis or diarrhea denies burning, urgency, frequency or hematuria Musculoskeletal: Denies back pain or muscle pain Neuro: Denies numbness, tingling, weakness or focal weakness Skin: Denies rash Except as documented, all other systems reviewed and negative PMFSH Past Medical History Medical History Von Willebrand's disease Allergies Arthralgia of hip Asthma Kidney infection Implanon in place Surgical History Surgical History History of tonsillectomy and adenoidectomy H/O total hip arthroplasty labral tear [place] teeth extracted Family History Family History Mother Von Willebrands disease Social History Social History Smoking status: Never smoker Occupation/Education: student Gender identity (if verbalized by the patient): Female Course Vital Signs Vital signs: Vital Signs Temperature 97.5 F L 08/02/25 23:18 Pulse Rate 92 08/02/25 23:18 Respiratory Rate 18 08/02/25 23:18 Blood Pressure 129/89 08/02/25 23:18 Pulse Oximetry 100 08/02/25 23:18 Oxygen Delivery Room Air 08/02/25 23:18 Temperature 98.0 F 08/03/25 01:20 Pulse Rate 90 08/03/25 01:20 Respiratory Rate 20 08/03/25 01:20 Blood Pressure 139/94 H 08/03/25 01:20 Pulse Oximetry 100 08/03/25 01:20 Oxygen Delivery Room Air 08/02/25 23:29 MDM - Allergic Reaction MDM Narrative Medical decision making narrative: 24-year-old female presenting for concerns for anaphylaxis. On initial evaluation patient was in no acute distress afebrile, hemodynamically stable. She did have shortness of breath and had LIANA uric [place] rash to her face. Given 2 system involvement, she was given IM epinephrine. On re-evaluation, patient did have significant improvement of her symptoms. She was observed for 2 hours in the ED with no return symptoms. She will be given prescription for EpiPen. She was advised to follow-up with her PCP in the next week for re-evaluation. Patient was agreeable to this plan. Given strict return precautions. CRITICAL CARE Indication: Anaphylaxis Time type: intermittent I provided a total of 35 minutes of critical care excluding separately billable procedures. This includes time w/ EMS, initial bedside evaluation, reviewing old records, review of testing done while under my care, discussion w/ the family, nurses, sharepoint consultant and guiding the patient?s care while in the emergency department. Differential Diagnosis Differential diagnosis: Likely anaphylaxis, allergic reaction, contact dermatitis and urticaria Medical Records Attestation: I reviewed the patient's medical records. Discharge Plan Discharge Clinical Impression: Anaphylaxis Qualifiers: Encounter type: initial encounter Qualified Code(s): T78.2XXA - Anaphylactic shock, unspecified, initial encounter Patient Disposition: Home Condition: Stable Instructions: Antibiotic Form, Anaphylaxis (ED) Additional Instructions: Use at the pens as needed for anaphylaxis. Take Zyrtec, or Claritin, or Cecelia daily for the next week. Follow-up with your PCP in the next week for re-evaluation. Return to the ED for any new or worsening symptoms. Patient Language: Maori Prescriptions: New epinephrine [EpiPen 2-Bruno] 0.3 mg/0.3 mL auto-injector 0.3 mg IM Q5-15M PRN (Reason: anaphylaxis) Qty: 2 0RF Rx Instructions: do not exceed 3 doses per episode No Action dextroamphetamine-amphetamine 15 mg tablet 15 mg PO DIRECTED albuterol sulfate 90 mcg/actuation HFA aerosol inhaler 90 mcg INHALATION DIRECTED nitrofurantoin monohyd/m-cryst [Macrobid] 100 mg capsule 100 mg PO Q12H 5 Days Qty: 10 0RF Rx Instructions: must administer with a meal/food sertraline 25 mg tablet 25 mg PO DAILY Follow-up/Referrals: PHYSICIAN NOT ON STAFF,NONSTAFF [Primary Care Provider]
[2025-08-02 23:29] VITALS: O2SAT 100
[2025-08-02 23:31] VITALS: BP 129/111; O2SAT 100
[2025-08-02] MEDS: EPINEPHrine HCL INJ 1 MG/ML AMPUL 0.3 MG IM (23:42)
[2025-08-03 00:02] VITALS: BP 132/85; O2SAT 99
--- OUTSIDE RECORDS SUMMARY | 2025-08-03 00:02 | XMS_ITS | Encounter Summary ---
Author Organization 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, Interface Default Social History Tobacco Use Types Packs/Day Years Used Date Smoking Tobacco: Never Smokeless Tobacco: Never Comments:Quit smoking: Vapes socially Alcohol Use Standard Drinks/Week Comments No 0 (1 standard drink = 0.6 oz pur e alcohol) Comments No Sex and Gender Information Value Date Recorded Sex Assigned at Not on file Legal Sex Female 9:05 AM CDT Gender Identity Female 08/02/2023 9:05 AM CDT Sexual Orientation Straight 08/02/2023 9: 05 AM CDT documented as of this encounter Plan of Treatment Not on file documented as of this encounter Visit Diagnoses Not on filedocumented in this encounter Care Teams Polishing Wheel Setter Relationship Specialty Start Date End Date Kameron Davila MD PCP - General 03/27/14 documented as of this encounter
--- OUTSIDE RECORDS SUMMARY | 2025-08-03 00:02 | XMS_ITS | Encounter Summary ---
Author Organization [facility] Address [address] [place] [address] Phone Care Team Providers Care Nut Roaster Helper Name Role Phone Boby Davila MD Primary Care Provider [phone] Reason for Referral * - Closed Specialty Diagnoses / Procedures Referred By Contac t Referred To Contact Diagnoses Acute right flank pain Procedures US ABDOMEN APPENDIX CHG US, ABDOMEN LIMITED Boby Davila MD [address] [address] Phone: tel: fax: [facility] [address] [place] [id number] Phone: tel: Referral ID Status Reason Start Date Expiration Date Visits Re quested Visits Authorized [id number] Closed 05/31/2025 1 1 Encounter Details Date Type Department Care Team (Late st Contact Info) Description 05/31/2025 Orders Only [facility] Non-Surgical Orthopedics & Sports Medicine [address] [phone] Boby Davila MD [address] [phone] Acute right flank pain (Primary Dx) Social History Tobacco Use Types Packs/Day Years [...] on file documented as of this encounter Results * US ABDOMEN APPENDIX (06/03/2025 8:25 AM CDT) Anatomical Region Laterality Modality Abdomen N/A Ultrasound 06/03/2025 8:04 AM CDT Narrative 06/03/2025 8:45 AM CDT Accession Exam Completed Date/Time [id number] US ABDOMEN APPENDIX 06/03/2025 08:25 Requesting: BOBY DAVILA EXAM: US APPENDIX INDICATION: Acute right flank pain. COMPARISON: CT abdomen pelvis 05/15/2023. Report from CT abdomen pelvis 05/19/2025 performed at an outside facility is available; however, images are not available for comparison at the time of dictation. TECHNIQUE: Sonographic images of the right lower quadrant were obtained assessing grayscale appearance. FINDINGS: There is a tubular structure within the right lower quadrant, overlying the iliac vessels, which measures 3 to 4 mm in diameter. It is uncertain whether this structure is blind ending, as visualization of the deeper portion of the structure is limited, per quality systems technician. However, there is no wall thickening or adjacent free fluid. Peristalsing bowel loops are seen within the right lower quadrant. IMPRESSION: Tubular structure within the right lower quadrant, possibly representing the appendix. This structure is not entirely visualized on this study. No free fluid. Electronically Signed and Authenticated by Cristine Juarez MD 06/03/2025 08:45 Procedure Note Cristine Juarez MD - 06/03/2025 Accession Exam CompletedDate/Time [id number] US ABDOMEN APPENDIX 508:25 Requesting: BOBY DAVILA EXAM: US APPENDIX INDICATION: Acute right flank pain. COMPARISON: CT abdomen pelvis 05/15/2023. Report from CT abdomen pelvis05/19/2025 performed at an outside facility is available; however, imagesare not available for comparison at the time of dictation. TECHNIQUE: Sonographic images of the right lower quadrant were obtainedassessing grayscale appearance. FINDINGS: There is a tubular structure within the right lower quadrant,overlying the iliac vessels, which measures 3 to 4 mm in diameter. It isuncertain whether this structure is blind ending, as visualization of thedeeper portion of the structure is limited, per quality systems technician. However, there is no wall thickening or adjacentfree fluid. Peristalsing bowel loops are seen within the right lowerquadrant. IMPRESSION: Tubular structure within the right lower quadrant, possibly representingthe appendix. This structure is not entirely visualized on this study. Nofree fluid. Electronically Signed and Authenticated by Cristine Juarez MD 06/03/2025 08:45 us Boby Davila MD ULTRASOUND Final Resul t documented in this encounter Visit Diagnoses Diagnosis Acute right flank pain- Primary Abdominal pain, unspecified site Acute right flank pain Abdominal pain, unspecified site documented in this encounter Care Teams Nut Roaster Helper Relationship Specialty Start Date End Date Boby Davila MD PCP - General 03/27/14 documented as of this encounter
--- OUTSIDE RECORDS SUMMARY | 2025-08-03 00:02 | XMS_ITS | Encounter Summary ---
Author Organization [facility] Address [address] [place] [address] Phone Care Team Providers Care Finish Filer Name Role Phone Kameron Davila MD Primary Care Provider Reason for Visit * Reason Onset Date Comments Appointment Cancel/reschedule 05/21/2025 Encounter Details Date Type Department Care Team (Late st Contact Info) Description 05/21/2025 Telephone [facility] Non-Surgical Orthopedics & Sports Medicine [address] [facility] [address] [place] [address] Kameron Davila MD [address] [facility] [address] [place] [address] Appointment Cancel/reschedule Social History Tobacco Use Types Packs/Day Years [...] AM CDT documented as of this encounter Miscellaneous Notes * Telephone Encounter - Angelina Juarez CMA - 05/29/2025 8:25 AM CDT None. * Telephone Encounter - Angelina Juarez CMA - 05/29/2025 8:25 AM CDT ----- Message from Nicol sent at 05/29/2025 7:55 AM CDT ----- Patient returning call Says if you want to order the test thru [facility] here she will be available Is going back and forth between [place] and her current home [phone] thx * Telephone Encounter - Kameron Davila MD - 05/21/2025 5:07 PM CDT Ok for virtual. * Telephone Encounter - Angelina Juarez CMA - 05/21/2025 9:44 AM CDT ----- Message from Nicol sent at 05/21/2025 9:37 AM CDT ----- Patient went to a urgent care down in [place] about 10 hours away from here And got a CT scan as well and has a kidney stone in her kidney They told her to follow up with Dr Byrne and see what he wants to do Also patient is breaking out in a rash which just popped up on arms She usually gets prednsone for this [phone] thx documented in this encounter Plan of Treatment Not on file documented as of this encounter Visit Diagnoses Not on filedocumented in this encounter Care Teams Finish Filer Relationship Specialty Start Date End Date Kameron Davila MD PCP - General 03/27/14 documented as of this encounter
--- OUTSIDE RECORDS SUMMARY | 2025-08-03 00:02 | XMS_ITS | Encounter Summary ---
Author Organization [facility] Address [address] [place] [address] Phone Care Team Providers Care Plaster And Stucco Worker Name Role Phone Kameron Davila MD Primary Care Provider Encounter Details Date Type Department Care Team (Late st Contact Info) Description 10/17/2023 Lab Requisition [facility] Lab/EKG [address] [place] [address] Duran Donnelly MD [address] [place] [address] Chronic kidney disease, stage 2 (mild) Social History Tobacco Use Types Packs/Day Years Used Date Smoking Tobacco: Never Smokeless Tobacco: Never Alcohol Use Standard Drinks/Week Comments Yes 0 (1 standard drink = 0.6 oz pur e alcohol) Socially Comments No Sex and Gender Information Value Date Recorded Sex Assigned at Not on file Legal Sex Female 3:14 AM LIVING COACH Gender Identity Not on file Sexual Orientation Not on file documented as of this encounter Plan of Treatment Not on file documented as of this encounter Procedures Procedure Name Priority Date/Time Associated Diagnosis Comments UR PROTEIN/CREATININE RATIO Routine 10/17/2023 2:46 PM LIVING COACH Chronic kidney disease, stage 2 (mild) RENAL FUNCTION PANEL (RFP) Routine 10/17/2023 2:46 PM LIVING COACH Chronic kidney disease, stage 2 (mild) COMPLETE BLOOD COUNT (CBC) WITHOUT DIFF Routine 10/17/2023 2:46 PM LIVING COACH Chronic kidney disease, stage 2 (mild) documented in this encounter Results * COMPLETE BLOOD COUNT (CBC) WITHOUT DIFF (10/17/2023 2:46 PM LIVING COACH) WBC 9.26 4.00 - 12.00 10(3)/mcL 10/17/2023 6:54 PM [facility] RBC 4.61 3.80 - 5.30 10(6)/mcL 10/17/2023 6:54 PM [facility] HEMOGLOBIN (HGB) 13.1 12.0 - 15.8 g/dL 10/17/2023 6:54 PM [facility] HEMATOCRIT (HCT) 39.7 36.0 - 47.0 % 10/17/2023 6:54 PM [facility] MCV 86.1 82.0 - 96.0 fL 10/17/2023 6:54 PM [facility] MCH 28.4 26.0 - 34.0 pg 10/17/2023 6:54 PM [facility] MCHC 33.0 31.0 - 36.0 g/dL 10/17/2023 6:54 PM [facility] PLATELET COUNT 440 140 - 440 10(3)/mcL 10/17/2023 6:54 PM [facility] RDW 15.2 11.8 - 15.5 % 10/17/2023 6:54 PM [facility] MPV 10.1 9.7 - 12.4 fL 10/17/2023 6:54 PM [facility] Blood Venipuncture / Unknown 10/17/2023 2:46 PM LIVING COACH 10/17/2023 2:52 PM LIVING COACH us Duran Donnelly MD HEMATOLOGY ORDERABLES Beatris monreal Result [facility] [address] [place] [address], * RENAL FUNCTION PANEL (RFP) (10/17/2023 2:46 PM LIVING COACH) SODIUM 136 136 - 145 mmol/L 10/17/2023 7:03 PM [facility] POTASSIUM 4.9 3.5 - 5.1 mmol/L 10/17/2023 7:03 PM [facility] CHLORIDE 104 98 - 107 mmol/L 10/17/2023 7:03 PM [facility] CO2, VENOUS 25 22 - 30 mmol/L 10/17/2023 7:03 PM [facility] ANION GAP 7.0 <18.0 mmol/L 10/17/2023 7:03 PM [facility] GLUCOSE 78 70 - 99 mg/dL 10/17/2023 7:03 PM [facility] BUN 15 5 - 18 mg/dL 10/17/2023 7:03 PM [facility] CREATININE, BLOOD 0.80 0.60 - 1.00 mg/dL 10/17/2023 7:03 PM [facility] BUN/CREATININE RATIO 19 12 - 20 ratio 10/17/2023 7:03 PM [facility] ALBUMIN 4.6 3.5 - 5.0 g/dL 10/17/2023 7:03 PM [facility] CALCIUM 9.4 8.7 - 10.5 mg/dL 10/17/2023 7:03 PM [facility] PHOSPHORUS 3.7 2.5 - 4.5 mg/dL 10/17/2023 7:03 PM [facility] GFR, ESTIMATED >60 >=60 10/17/2023 7:03 PM [facility] Comment: Creatinine Clearance is the preferred criteria for selecting drug dose adjustments in renally impaired patients. The GFR is provided as additional pertinent clinical information. GFR is reported in mL/min/1.73 sq m. Calculation based on the Chronic Kidney Disease Epidemiology Collaboration (CKD- EPI) equation refit without adjustment for race. GFR, EST. >60 >=60 024 7:03 PM LIVING COACH [facility] GFR, EST. NONAFRICAN >60 >=60 10/17/2023 7:03 PM LIVING COACH [facility] Blood Venipuncture / Unknown 10/17/2023 2:46 PM LIVING COACH 10/17/2023 2:52 PM LIVING COACH us Duran Donnelly MD CHEMISTRY ORDERABLES Final Result Performing Organization Address City/[facility]/ZIP Co de Phone Number [facility] [address] [place] [address], [place] * UR PROTEIN/CREATININE RATIO (10/17/2023 2:46 PM LIVING COACH) UR PROTEIN RAND, QT 15.9 mg/dL 10/17/2023 5:50 PM LIVING COACH [facility] Comment:No reference range h as been established. Consider Clinical Correlation. URINE CREATININE 300.6 mg/dL 10/17/2023 5:50 PM LIVING COACH [facility] Comment:No reference range h as been established. Consider Clinical Correlation. URINE PROTEIN/CREATIN INE RATIO 0.05 <0.25 10/17/2023 5:50 PM LIVING COACH [facility] Urine Non-Phlebotomy Collection / Unknown 10/17/2023 2:46 PM LIVING COACH 10/17/2023 2:59 PM LIVING COACH us Duran Donnelly MD URINE ORDERABLES Final Res ult [facility] [address] [place] [address], documented in this encounter Visit Diagnoses Diagnosis Chronic kidney disease, stage 2 (mild) documented in this encounter Care Teams Plaster And Stucco Worker Relationship Specialty Start Date End Date Kameron Davila MD PCP - General Sports Medicine 12/22/17 documented as of this encounter
--- OUTSIDE RECORDS SUMMARY | 2025-08-03 00:02 | XMS_ITS | Clinical Summary ---
Author Organization [facility] Address [address] [place] [address] Phone Care Team Providers Care Retail Analytics Manager Name Role Phone Boby Davila MD Primary Care Provider Allergies Active Allergy Reactions Criticality Noted Date Comments Covid-19 Vaccine, Mrna, [id number], Lnp-S ([employer] Other; see comment Medium 11/25/2021 Chest pian and SOB Latex Rash Low 01/27/2021 Fspcetdz-Ccwintxro-Dagy icidin Hives 03/02/2024 Shellfish Containing Products Anaphylaxis High 03/27/2014 Medications * This document contains information received from the source organization and may not represent a complete record from that organization. cetirizine (ZYRTEC) 10 mg tablet Take 1 (one) tablet by mouth every evening. Active etonogestreL (NEXPLANON) 68 mg subdermal implant 1 each by Subdermal route every three (3) years. Active acetaminophen 500 mg tablet Take 1,000 mg by mouth every 6 hours as needed 2 Active sertraline (ZOLOFT) 25 mg tablet Take 25 mg by mouth Active celecoxib (CELEBREX) 200 mg capsule Take 1 capsule (200 mg total) by mouth every day 30 capsule 1 4 Active Additional Information Patient not taking.Reported on 05/23/2025 dextroamphetamine -amphetamine (ADDERALL) 15 mg tabletIndications :Attention deficit hyperactivity disorder (ADHD), combined type Take 1 tablet (15 mg total) by mouth 2 (two) times daily 60 tablet 5 Active dextroamphetamine -amphetamine (ADDERALL) 15 mg tabletIndications :Attention deficit hyperactivity disorder (ADHD), combined type Take 1 tablet (15 mg total) by mouth 2 (two) times daily 60 tablet 5 Active dextroamphetamine -amphetamine (ADDERALL) 15 mg tabletIndications :Attention deficit hyperactivity disorder (ADHD), combined type Take 1 tablet (15 mg total) by mouth 2 (two) times daily 60 tablet 5 Active ondansetron 4 mg rapid dissolve tablet Take 4 mg by mouth every 8 (eight) hours as needed for nausea 5 Active SUMAtriptan (IMITREX) 50 mg tablet Take 50 mg by mouth Active tranexamic acid (LYSTEDA) 650 mg tablet Take 650 mg by mouth Active promethazine 25 mg tabletIndications :Acute right flank pain Take 1 tablet (25 mg total) by mouth every 6 hours as needed for nausea 30 tablet 5 Active Active Problems Problem Noted Date Diagnosed Date Underweight (BMI < 18.5) 09/05/2024 Underweight due to inadequate caloric intake Attention deficit hyperactiv ity disorder (ADHD), combined type 09/05/2024 Pain in left hip 09/05/2024 Overview (09/05/2024): History of left acetabular labral repair Cyst of kidney, acquired 01/27/2021 Von Willebrand disease 09/19/2019 Episodic mood disorder 12/20/2013 Overview (05/23/2025): Overview: BOBY DAVILA MD BOBY DAVILA MD Asthma 10/28/2010 Overview (03/09/2024): Overview: MICHELLE WARET MICHELLE MENDIETA ASST Encounters Date Type Department Care Team Description 06/04/2025 Consult [facility] Presales Consultant Provider, Interface Default 06/03/2025 8:00 AM CDT - 06/03/2025 11:59 PM CDT Hospital Encounter [facility] Ultrasound [facility] [address] [place] [address] Boby Davila MD Acute right flank pain Discharge Disposition: Discharged to Home or Self Care 06/03/2025 Results Follow-Up [facility] Non-Surgical Orthopedics [facility] Medicine [address] [facility] [address] [place] [address] Boby Davila MD 05/31/2025 Orders Only [facility]-Surgical [facility]oped[facility] [address] [facility] [address] [place] [address] Boby Davila MD Acute right flank pain (Primary Dx) 05/23/2025 8:15 AM CDT Telemedicine [facility] [address] [facility] [address] [place] [address] Boby Davila MD Acute right flank pain (Primary Dx); Renal lithiasis; Pelvic pain 05/21/2025 Telephone [facility]Surgical [facility] [address] [facility] [address] [place] [address] Boby Davila MD Appointment Cancel/reschedule 05/19/2025 Scanned Document [facility] Presales Consultant Provider, Interface Default from Last 3 Months Family History Medical History Relation Name Comments HIGH CHOLESTEROL Father Bipolar Disorder Maternal Aunt Depression Maternal Aunt Diabetes Maternal Grandmother Asthma Mother Cancer Mother lung, carcinoid syndrome Depression Mother Migraine/Headaches Mother Thyroid Mother OTHER Other MAT great grand mother-AML Cancer Paternal Grandmother breast Relation Name Status Comments Father Maternal Aunt Maternal Grandmother Mother Other Paternal Grandmother Social History Tobacco Use Types Packs/Day Years Used Date Smoking Tobacco: Never Smokeless Tobacco: Never Tobacco Cessation:Counseling Given: Not Answered Comments:Quit smoking: Vapes socially Alcohol Use Standard Drinks/Week Comments No 0 (1 standard drink = 0.6 oz pur e alcohol) Comments No Sex and Gender Information Value Date Recorded Sex Assigned at Not on file Legal Sex Female 9:05 AM CDT Gender Identity Female 08/02/2023 9:05 AM CDT Sexual Orientation Straight 08/02/2023 9: 05 AM CDT Last Filed Vital Signs Vital Sign Reading Time Taken Comments Blood Pressure 124/66 10/25/2024 3:19 PM TOOL ENGINEER Pulse 97 10/25/2024 3:19 PM TOOL ENGINEER Temperature 36.7 C (98.1 F) 10/25/2024 3:19 PM TOOL ENGINEER Respiratory Rate 18 10/12/2024 12:37 PM TOOL ENGINEER Oxygen Saturation 100% 10/25/2024 3:19 PM TOOL ENGINEER Inhaled Oxygen Concentration - - Weight 43.4 kg (95 lb 9.6 oz) 03/02/2024 3:12 PM CDT Height 152.4 cm (5') 05/15/2023 9:27 PM CDT Body Mass Index 18.67 05/15/2023 9:27 PM CDT Plan of Treatment Health Maintenance Due Date Last Done Comments Varicella Vaccines (2 of 2 - 2-dose childhood series) 2004 03/08/2002 Depression Screening 2012 Chlamydia Screening 2015 Pneumococcal Vaccines (1 of 2 - PCV) 2019 Pap Smear 2021 COVID-19 Vaccine ( season) 2025 11/06/2021, 10/06/2021 Influenza Vaccine (#1) 2025 , 05/24/2023, 07/16/2016, Additional history exists DTaP/Tdap/Td Vaccines (8 - Td or Tdap) 05/17/2033 05/17/2023, 05/24/2012, 12/09/2005, Additional history exists HIB Vaccines Completed 12/08/2001, 08/11, 06/09/2001, Additional history exists IPV Vaccines Completed 12/09/2005, 10/2001, 04/24/2001, Additional history exists MMR Vaccines Completed 12/09/2005, 02/09/2002 HPV Vaccines Completed 07/16/2016, 04/2016, 04/20/2016, Additional history exists Hepatitis A Vaccines Completed 01/17/2017, 07/16/20 16 Meningococcal Vaccine (ACWY) Completed 05/15/2018, 04/26/2014 Hepatitis B Vaccines Completed 05/24/2023, 12/08/2001, 02/10/2001, Additional history exists Meningococcal B Vaccine Aged Out No l onger eligible based on patient's age to complete this topic Rotavirus Vaccines Aged Out No longer eligible based on patient's age to complete this topic Procedures Procedure Name Priority Date/Time Associated Diagnosis Comments US ABDOMEN APPENDIX Routine 06/03/2025 8 :25 AM CDT Acute right flank pain from Last 3 Months Results * US ABDOMEN APPENDIX (06/03/2025 8:25 AM CDT) Anatomical Region Laterality Modality Abdomen N/A Ultrasound 06/03/2025 8:04 AM CDT Narrative 06/03/2025 8:45 AM CDT Accession Exam Completed Date/Time [id number] US ABDOMEN APPENDIX 06/03/2025 08:25 Requesting: BOBY [...] portion of the structure is limited, per analyst. However, there is no wall thickening or [...] Juarez MD - 06/03/2025 Accession Exam CompletedDate/Time [id number] US ABDOMEN APPENDIX 508:25 Requesting: BOBY DAVILA [...] portion of the structure is limited, per analyst. However, there is no wall thickening or adjacentfree fluid. Peristalsing bowel loops are seen within the right lowerquadrant. IMPRESSION: Tubular structure within the right lower quadrant, possibly representingthe appendix. This structure is not entirely visualized on this study. Nofree fluid. Electronically Signed and Authenticated by Cristine Juarez MD 06/03/2025 08:45 Boby Davila MD ULTRASOUND Final Resul t from Last 3 Months [employer] BLUE [employer] [facility] Cross Blue Shield Commercial (POS, PPO, etc) Address: [address] [address] BLUE [employer] BLUE SHIELD [facility] Cross Blue Shield Commercial (POS, PPO, etc) Address: [id number] [place] [id number] BLUE [employer] BLUE SHIELD [employer] Cross Blue Shield Commercial (POS, PPO, etc) Address: [address] [address] [employer]UE [employer] BLUE [employer]IELD [facility] Cross Blue Shield Commercial (POS, PPO, etc) Address: [address] [address] Care Teams Retail Analytics Manager Relationship Specialty Start Date End Date Boby Davila MD PCP - General 03/27/14
--- OUTSIDE RECORDS SUMMARY | 2025-08-03 00:03 | XMS_ITS | Encounter Summary ---
Author Organization [facility] Address [address] [facility] [place] [address] Phone Care Team Providers Care Maintenance Plumber Name Role Phone Kameron Davila MD Primary Care Provider Encounter Details Date Type Department Care Team (Late st Contact Info) Description 07/21/2021 Lab Requisition [facility] [address] [place] [address] Duran Donnelly MD [address] [facility] [address] [place] [phone] Urinary tract infection, site not specified; Cyst of kidney, acquired; Von Willebrand's disease (HCC) Social History Tobacco Use Types Packs/Day Years Used Date Smoking Tobacco: Never Assessed Comments Unknown Sex and Gender Information Value Date Recorded Sex Assigned at Not on file Legal Sex Female 3:14 AM DIRECTOR OF BILLING Gender Identity Not on file Sexual Orientation Not on file COVID-19 Exposure Response Date Recorded In the last month, have you been in contact with someone who was confirmed or suspected to have Coronavirus / COVID-19? No / Unsure 07/21/2021 10:10 AM CDT documented as of this encounter Plan of Treatment Not on file documented as of this encounter Procedures Procedure Name Priority Date/Time Associated Diagnosis Comments URINALYSIS REFLEX IF INDICATED BY ABNORMAL RESULTS Routine 07/21/2021 10:30 AM CDT Urinary tract infection, site not specified Cyst of kidney, acquired Von Willebrand's disease (HCC) CBC WITH AUTO DIFFERENTIAL Routine 07/21/2021 10:30 AM CDT Urinary tract infection, site not specified Cyst of kidney, acquired Von Willebrand's disease (HCC) URIC ACID (BLOOD ASSAY) Routine 07/21/2021 10:30 AM CDT Urinary tract infection, site not specified Cyst of kidney, acquired Von Willebrand's disease (HCC) UR PROTEIN/CREATININE RATIO Routine 07/21/2021 10:30 AM CDT Urinary tract infection, site not specified Cyst of kidney, acquired Von Willebrand's disease (HCC) RENAL FUNCTION PANEL (RFP) Routine 07/21/2021 10:30 AM CDT Urinary tract infection, site not specified Cyst of kidney, acquired Von Willebrand's disease (HCC) CULTURE, URINE Routine 07/21/2021 10:30 AM CDT Urinary tract infection, site not specified Cyst of kidney, acquired Von Willebrand's disease (HCC) COMPLETE BLOOD COUNT (CBC) WITH DIFF Routine 07/21/2021 10:30 AM CDT Urinary tract infection, site not specified Cyst of kidney, acquired Von Willebrand's disease (HCC) documented in this encounter Results * (ABNORMAL) CBC WITH AUTO DIFFERENTIAL (07/21/2021 10:30 AM CDT) WBC 7.28 4.00 - 12.00 10(3)/mcL 07/21/2021 11:12 AM CDT [facility] RBC 4.52 3.80 - 5.30 10(6)/mcL 07/21/2021 11:12 AM CDT [facility] HEMOGLOBIN (HGB) 13.0 12.0 - 15.8 g/dL 07/21/2021 [facility] 40.5 36.0 - 47.0 % 07/21/2021 11:12 AM CDT [facility] MCV 89.6 82.0 - 96.0 fL 07/21/2021 11:[facility] MCH 28.8 26.0 - 34.0 pg 07/21/2021 11:12 AM CDT [facility] MCHC 32.1 31.0 - 36.0 g/dL 07/21/2021 11:12 AM [facility] PLATELET COUNT 376 140 - 440 10(3)/mcL 07/21/2021 11:12 AM [facility] RDW 13.1 11.8 - 15.5 % 07/21/2021 11:12 AM [facility] MPV 9.5(L) 9.7 - 12.4 fL 07/21/2021 11:12 AM [facility] NEUTROPHILS 50.6 47.0 - 73.0 % 07/21/2021 11:12 AM [facility] LYMPHOCYTES 36.0 18.0 - 42.0 % 07/21/2021 11:12 AM [facility] MONOCYTES 8.0 4.0 - 12.0 % 07/21/2021 11:12 AM [facility] EOSINOPHILS 4.9 0.0 - 5.0 % 07/21/2021 11:12 AM [facility] BASOPHILS 0.5 0.0 - 1.0 % 07/21/2021 11:12 AM [facility] ABSOLUTE NEUTROPHILS 3.68 1.60 - 7.70 10(3)/mcL 07/21/2021 11:12 AM CDT [facility] ABSOLUTE LYMPHOCYTES 2.62 1.30 - 3.20 10(3)/mcL 07/21/2021 11:12 AM [facility] ABSOLUTE MONOCYTES 0.58 0.20 - 1.00 10(3)/mcL 07/21/2021 11:12 AM CDT [facility] ABSOLUTE EOSINOPHIL 0.36 0.00 - 0.40 10(3)/mcL 07/21/2021 11:12 AM CDT [facility] ABSOLUTE BASOPHILS 0.04 0.00 - 0.10 10(3)/mcL 07/21/2021 11:12 AM CDT [facility] NRBC PER 100 WBC 0 07/21/20 11:12 AM CDT [facility] Blood Venipuncture / Unknown 07/21/2021 10:30 AM CDT 07/21/2021 11:01 AM CDT us Duran Donnelly MD HEMATOLOGY ORDERABLES Beatris l Result Performing Organization Address City/[facility] [address] [facility] [[email or web address]] Co de Phone Number [facility] [address] [place] [address], [place] * UR PROTEIN/CREATININE RATIO (07/21/2021 10:30 AM CDT) UR PROTEIN RAND, QT 9.1 mg/dL 07/21/2021 9:39 PM CDT [facility] Comment:No reference range h as been established. Consider Clinical Correlation. URINE CREATININE 112.6 mg/dL 07/21/2021 9:39 PM CDT [facility] Comment:No reference range h as been established. Consider Clinical Correlation. URINE PROTEIN/CREATIN INE RATIO 0.08 <0.25 07/21/2021 9:39 PM CDT [facility] Urine Non-Phlebotomy Collection / Unknown 07/21/2021 10:30 AM CDT 07/21/2021 11:01 AM CDT us Duran Donnelly MD URINE ORDERABLES Final Res ult Performing Organization Address City/[facility] [address] [facility] [[email or web address]] Co de Phone Number [facility] [address] [place] [address], [place] * URIC ACID (BLOOD ASSAY) (07/21/2021 10:30 AM CDT) URIC ACID 4.3 2.5 - 6.2 mg/dL 07/21/2021 11:30 AM CDT [facility] Blood Venipuncture / Unknown 07/21/2021 10:30 AM CDT 07/21/2021 11:01 AM CDT us Duran Donnelly MD CHEMISTRY ORDERABLES Final Result [facility] [address] [place] [address], [place] * (ABNORMAL) URINALYSIS REFLEX IF INDICATED BY ABNORMAL RESULTS (07/21/2021 10:30 AM CDT) SPECIFIC GRAVITY 1.018 1.003 - 1.030 07/21/2021 12:46 PM CDT [facility] URINE PH 7.0 5.0 - 9.0 07/21/2021 12:46 PM CDT [facility] WBC ESTERASE Negative Negative 07/21/2021 12:46 PM CDT [facility] NITRITE Positive(A) Negative 07/21/2021 12:46 PM CDT [facility] PROTEIN, RANDOM URINE Negative Negative 07/21/2021 12:46 PM CDT [facility] URINE GLUCOSE, QUAL Negative Negative 07/21/2021 12:46 PM CDT [facility] URINE KETONES Negative Negative 07/21/2021 12:46 PM CDT [facility] UROBILINOGEN Normal 0.2 , 1.0 , Normal mg/dL 07/21/2021 12:46 PM CDT [facility] URINE BLOOD Negative Negative faustina/ul 07/21/2021 12:46 PM CDT [facility] URINALYSIS COLOR Yellow 07/21/20 12:46 PM CDT [facility] URINALYSIS CLARITY Hazy 07/21/2021 12:46 PM CDT [facility] WBC (Urine) 6-10(A) Negative, 0-5 /hpf 07/21/2021 12:46 PM CDT [facility] URINE RBC'S 0-2 Negative, 0-2 /hpf 07/21/2021 12:46 PM CDT [facility] BACTERIA, URINE Few(A) Negative /hpf 07/21/2021 12:46 PM CDT [facility] URINE MUCOUS Few 07/21/2021 12:46 PM CDT [facility] URINE SQUAMOUS EPITHELIAL CELLS Occasional(A ) Negative /HPF 07/21/2021 12:46 PM CDT [facility] Urine (Clean Catch) Non-Phlebotomy Collection / Unknown 07/21/2021 10:30 AM CDT 07/21/2021 11:01 AM CDT us Duran Donnelly MD URINE ORDERABLES Final Res ult [facility] [address] [place] [address], [place] * CULTURE, URINE (07/21/2021 10:30 AM CDT) CULTURE RESULTS KLEBSIELLA AEROGENES 07/23/2021 7:47 AM CDT [facility] Comment:Formerly known as En terobacter aerogenes, Inherently resistant to unasyn Culture URINE SPECIMEN / Unknown Non-Phlebotomy Collection / Unknown 07/21/2021 10:30 AM CDT 07/21/2021 11:01 AM CDT Narrative Organism Antibiotic Method Susceptibility KLEBSIELLA AEROGENES Cefazolin [facility] VITEK II >=64 mcg/ml: Resistant KLEBSIELLA AEROGENES Cefepime [facility] VITEK II <=1 mcg/ml: Susceptible KLEBSIELLA AEROGENES Ceftriaxone [facility] VITEK II <=1 mcg/ml: Susceptible KLEBSIELLA AEROGENES Gentamicin [facility] VITEK II <=1 mcg/ml: Susceptible KLEBSIELLA AEROGENES Levofloxacin [facility] VITEK II <=0.12 mcg/ml: Susceptible KLEBSIELLA AEROGENES Meropenem [facility] VITEK II <=0.25 mcg/ml: Susceptible KLEBSIELLA AEROGENES Nitrofurantoin [facility] VITEK II 32 mcg/ml: Susceptible KLEBSIELLA AEROGENES Piperacillin/Tazobactam [facility] ARMAND K II <=4 mcg/ml: Susceptible KLEBSIELLA AEROGENES Tobramycin [facility] VITEK II <=1 mcg/ml: Susceptible KLEBSIELLA AEROGENES Trimeth/Sulfamethoxazole [facility] VIT EK II <=20 mcg/ml: Susceptible us Duran Donnelly MD MICROBIOLOGY - GENERAL ORD ERABLES Final Result [facility] [address] [place] [address], [place] * (ABNORMAL) RENAL FUNCTION PANEL (RFP) (07/21/2021 10:30 AM CDT) SODIUM 140 136 - 145 mmol/L 07/21/2021 12:09 PM CDT [facility] POTASSIUM 4.7 3.5 - 5.1 mmol/L 07/21/2021 12:09 PM CDT [facility] CHLORIDE 105 98 - 107 mmol/L 07/21/2021 12:09 PM CDT [facility] CO2, VENOUS 28 22 - 30 mmol/L 07/21/2021 12:09 PM CDT [facility] ANION GAP 7.0 <18.0 mmol/L 07/21/2021 12:09 PM CDT [facility] GLUCOSE 96 70 - 99 mg/dL 07/21/2021 12:09 PM CDT [facility] BUN 18 5 - 18 mg/dL 07/21/2021 12:09 PM CDT [facility] CREATININE, BLOOD 0.84 0.60 - 1.00 mg/dL 07/21/2021 12:09 PM CDT [facility] BUN/CREATININE RATIO 21(H) 12 - 20 ratio 07/21/2021 12:09 PM CDT [facility] ALBUMIN 4.6 3.5 - 5.0 g/dL 07/21/2021 12:09 PM CDT [facility] CALCIUM 10.3 8.7 - 10.5 mg/dL 07/21/2021 12:09 PM CDT [facility] PHOSPHORUS 4.0 2.5 - 4.5 mg/dL 07/21/2021 12:09 PM CDT [facility] GFR, EST. NONAFRICAN >60 >=60 07/21/2021 12:09 PM CDT [facility] GFR, EST. >60 >=60 07/21/2021 12:09 PM CDT [facility] Comment: Creatinine Clearance is the preferred criteria for selecting drug dose adjustments in renally impaired patients. The GFR is provided as addtional pertinent clinical information. GFR is reported in mL/min/1.73 sq m Blood Venipuncture / Unknown 07/21/2021 10:30 AM CDT 07/21/2021 11:01 AM CDT us Duran Donnelly MD CHEMISTRY ORDERABLES Final Result [facility] [address] [place] [address], documented in this encounter Visit Diagnoses Diagnosis Urinary tract infection, site not specified Cyst of kidney, acquired Acquired cyst of kidney Von Willebrand's disease documented in this encounter Additional Health Concerns Infection Onset Date Last Indicated Resolved Time COVID - 19 11/07/2021 11/07/2021 11/27/2021 12:1 6 AM DIRECTOR OF BILLING COVID - 19 08/28/2023 08/28/2023 09/07/2023 12:1 6 AM DIRECTOR OF BILLING documented as of this encounter Care Teams Maintenance Plumber Relationship Specialty Start Date End Date Kameron Davila MD PCP - General Sports Medicine 12/22/17 documented as of this encounter
--- OUTSIDE RECORDS SUMMARY | 2025-08-03 00:03 | XMS_ITS | Encounter Summary ---
Author Organization [facility] Address [address] [place] [address] Care Team Providers Care Collector Of Internal Revenue Name Role Phone Kameron Davila MD Primary Care Provider [phone] Encounter Details Date Type Department Care Team (Late st Contact Info) Description 11/14/2007 Historical Office Visit [facility] Family Medicine [address] [place] [address] Aris Mcdaneil, WEDDING DECORATOR Social History Tobacco Use Types Packs/Day Years Used Date Smoking Tobacco: Never Assessed Comments Unknown Sex and Gender Information Value Date Recorded Sex Assigned at Not on file Legal Sex Female 2:48 PM BARYTES GRINDER Gender Identity Female 12/28/2020 10:43 PM CDT Sexual Orientation Straight 12/28/2020 10 :43 PM CDT documented as of this encounter Last Filed Vital Signs Vital Sign Reading Time Taken Comments Blood Pressure 102/68 11/14/2007 1:51 PM BARYTES GRINDER Pulse 116 11/14/2007 1:51 PM BARYTES GRINDER Temperature 37.1 C (98.8 F) 11/14/2007 1:51 PM BARYTES GRINDER Respiratory Rate - - Oxygen Saturation - - Inhaled Oxygen Concentration - - Weight 17.7 kg (39 lb) 11/14/2007 1:51 PM BARYTES GRINDER Height - - Body Mass Index - - documented in this encounter Plan of Treatment Not on file documented as of this encounter Visit Diagnoses Not on filedocumented in this encounter Care Teams Collector Of Internal Revenue Relationship Specialty Start Date End Date Kameron Davila MD PCP - General Family Medicine 03/27/14 documented as of this encounter
--- OUTSIDE RECORDS SUMMARY | 2025-08-03 00:03 | XMS_ITS | Encounter Summary ---
Author Organization [facility] Address [address] [place] [address] Phone Care Team Providers Care Private Detective Name Role Phone Kameron Davila MD Primary Care Provider Encounter Details Date Type Department Care Team (Late st Contact Info) Description 08/08/2024 Scanned Document [facility] Non-Surg Ortho/Sports Med Dudley Butt Professional [address] [facility] [address] [place] [address] Kameron Davila MD [address] [facility] [address] [place] [address] Social History Tobacco Use Types Packs/Day Years [...] on filedocumented in this encounter Care Teams Private Detective Relationship Specialty Start Date End Date Kameron Davila MD PCP - General 03/27/14 documented as of this encounter
--- OUTSIDE RECORDS SUMMARY | 2025-08-03 00:03 | XMS_ITS | Encounter Summary ---
Author Organization [facility] Address [address] [place] [address] Care Team Providers Care Paper Maker Name Role Phone Kameron Davila MD Primary Care Provider [phone] Encounter Details Date Type Department Care Team (Late st Contact Info) Description 11/12/2007 Historical Office Visit [facility] [address] [address] Tayo Hutson, PAPatriciaC [address] [place], [place] [id number] Social History Tobacco Use Types Packs/Day Years Used Date Smoking Tobacco: Never Assessed Comments Unknown Sex and Gender Information Value Date Recorded Sex Assigned at Not on file Legal Sex Female 2:48 PM ASSEMBLING INSPECTOR Gender Identity Female 12/28/2020 10:43 PM CDT Sexual Orientation Straight 12/28/2020 10 :43 PM CDT documented as of this encounter Last Filed Vital Signs Vital Sign Reading Time Taken Comments Blood Pressure - - Pulse 152 11/12/2007 12:04 PM ASSEMBLING INSPECTOR Temperature 38.7 C (101.6 F) 11/12/2007 12:04 PM ASSEMBLING INSPECTOR Respiratory Rate 28 11/12/2007 12:04 PM ASSEMBLING INSPECTOR Oxygen Saturation - - Inhaled Oxygen Concentration - - Weight 18.1 kg (40 lb) 11/12/2007 12:04 PM ASSEMBLING INSPECTOR Height - - Body Mass Index - - documented in this encounter Plan of Treatment Not on file documented as of this encounter Visit Diagnoses Not on filedocumented in this encounter Care Teams Paper Maker Relationship Specialty Start Date End Date Kameron Davila MD PCP - General Family Medicine 03/27/14 documented as of this encounter
--- OUTSIDE RECORDS SUMMARY | 2025-08-03 00:03 | XMS_ITS | Encounter Summary ---
Author Organization [facility] Address [address] [facility] [place] [address] Phone Care Team Providers Care Cloth Brushing And Sueding Supervisor Name Role Phone Kameron Davila MD Primary Care Provider [phone] Encounter Details Date Type Department Care Team (Late st Contact Info) Description 03/28/2024 Lab [facility]quisition [facility] [address] [place] [address] Halie Reyes, COMMUNITY RECREATION COORDINATOR, MORTGAGE LOAN UNDERWRITER [address] [place] [address] Social History Tobacco Use Types Packs/Day Years Used Date Smoking Tobacco: Never Smokeless Tobacco: Never Alcohol Use Standard Drinks/Week Comments Yes 0 (1 standard drink = 0.6 oz pur e alcohol) Socially Comments No Sex and Gender Information Value Date Recorded Sex Assigned at Not on file Legal Sex Female 3:14 AM GRADES 1 THROUGH 5 TEACHER Gender Identity Not on file Sexual Orientation Not on file documented as of this encounter Plan of Treatment Not on file documented as of this encounter Procedures Procedure Name Priority Date/Time Associated Diagnosis Comments MMRV PANEL Routine 03/28/2024 1:49 PM CDT MUMPS IGG Routine 03/28/2024 1:49 PM CDT HERPES ZOSTER (VARICELLA) IGG Routine 03/28/2024 1:49 PM CDT RUBEOLA (MEASLES) IGG Routine 03/28/2024 1:49 PM CDT RUBELLA IMMUNITY IGG Routine 03/28/2024 1:49 PM CDT HEPATITIS B SURFACE ANTIBODY (HBSAB) Routine 03/28/2024 1:48 PM CDT documented in this encounter Results * HERPES ZOSTER (VARICELLA) IGG (03/28/2024 1:49 PM CDT) VARICELLA ZOSTER IGG 2.4 >=1.1 AI 03/28/2024 3:27 PM CDT [facility] Blood 03/28/2024 1:49 PM CDT 03/28/2024 2:18 PM CDT Narrative [facility] - 03/28/2024 3:27 PM CDT <= 0.8 Negative. No detectable VZV IgG antibody. 0.9 - 1.0 Equivocal >=1.1 Positive Antibody testing was performed by multiplex flow immunoassay on the Stionlex platform. us Halie Reyes APRN, MORTGAGE LOAN UNDERWRITER IMMUNOLOGY ORDERABL ES Final Result [facility] [address] [place] [address], * (ABNORMAL) RUBEOLA (MEASLES) IGG (03/28/2024 1:49 PM CDT) MEASLES AB IGG 0.4(L) >=1.1 AI 03/28/2024 3:27 PM CDT [facility] Blood 03/28/2024 1:49 PM CDT 03/28/2024 2:18 PM CDT Narrative [facility] - 03/28/2024 3:27 PM CDT <= 0.8 Negative. No detectable Measles IgG antibody. 0.9 - 1.0 Equivocal >=1.1 Positive Antibody testing was performed by multiplex flow immunoassay on the BioPlex platform. Halie Reyes APRN, CNP IMMUNOLOGY ORDERABL ES Final Result Performing Organization Address [facility] Co de Phone Number [facility] [address] [place] [address], [place] * (ABNORMAL) RUBELLA IMMUNITY IGG (03/28/2024 1:49 PM CDT) RUBELLA IMMUNITY Nonimmune( A) Immune, Invalid 03/28/2024 5:36 PM CDT [facility] Blood 03/28/2024 1:49 PM CDT 03/28/2024 2:18 PM CDT Narrative [facility] - 03/28/2024 5:36 PM CDT Antibody testing was performed by multiplex flow immunoassay on the BioPlex platform. Halie Reyes APRN, CNP CHEMISTRY ORDERABLE S Final Result Performing Organization Address [facility] Co de Phone Number [facility] [address] [place] [address], [place] * (ABNORMAL) MUMPS IGG (03/28/2024 1:49 PM CDT) Mumps Ab IgG 0.4(L) >=1.1 AI 03/28/2024 3:27 PM CDT [facility] Blood 03/28/2024 1:49 PM CDT 03/28/2024 2:18 PM CDT Narrative [facility] - 03/28/2024 3:27 PM CDT <= 0.8 Negative. No detectable Mumps IgG antibody. 0.9 - 1.0 Equivocal >=1.1 Positive Antibody testing was performed by multiplex flow immunoassay on the BioPlex platform. us Halie Reyes APRN, CNP IMMUNOLOGY ORDERABL ES Final Result Performing Organization Address City/[facility] Co de Phone Number [facility] [address] [place] [address], [place] * HEPATITIS B SURFACE ANTIBODY (HBSAB) (03/28/2024 1:48 PM CDT) HEPATITIS B SURFACE ANTIBODY <8.00 mIU/mL 03/28/2024 3:10 PM CDT [facility] Comment:Individual is consid ered not immune to HBV infection. Blood 03/28/2024 1:48 PM CDT 03/28/2024 2:18 PM CDT us Halie Reyes APRN, CNP CHEMISTRY ORDERABLE S Final Result Performing Organization Address [facility] Co de Phone Number [facility] [address] [place] [address], [place] documented in this encounter Visit Diagnoses Not on filedocumented in this encounter Care Teams Cloth Brushing And Sueding Supervisor Relationship Specialty Start Date End Date Kameron Davila MD PCP - General Sports Medicine 12/22/17 documented as of this encounter
--- OUTSIDE RECORDS SUMMARY | 2025-08-03 00:03 | XMS_ITS | Patient Health Record ---
Author Organization [facility] Address [address] [place] [address] Support Name Relationship Address Phone Maritza Newsome Guarantor Unknown [phone] Reason For Referral No Information Medications Medication SIG (Take, Route, Fr equency, Duration) Notes Start Date End Date Status Nexplanon 68 MG Subcutaneous; Duration: 0 04/09/20 19 Active Problems Problem Type SNOMED Code ICD Code Onset Dates Problem Status W/U Status Risk Notes Problem Arthralgia of the pelvic region and thigh (005488146) Pain in hip (left) (M25.552) 04/09/2019 Active confirmed Plan Of Treatment No Information Insurance Providers Payer Name Payer Address Payer Phone Subscriber Number Group Number Insured Name Patient Relationship to Insured Coverage Start Date Coverage End Date [employer] [address] [place], [place] [id number] Maritza Newsome Self - patient is the insured 9 Medical (General) History Surgical History Surgery Date(Month/Year) General Surgery General surgery [place] t eeth removed Tonsillectomy History of tonsillectomy
--- OUTSIDE RECORDS SUMMARY | 2025-08-03 00:03 | XMS_ITS | Encounter Summary ---
Author Organization [facility] Address [address] [place] [address] Care Team Providers Care Gauge Maker Apprentice Name Role Phone Kameron Davila MD Primary Care Provider [phone] Encounter Details Date Type Department Care Team (Late st Contact Info) Description 02/13/2008 Historical Office Visit [facility] Family Medicine [address] [place] [address] Zan Rivas MD Social History Tobacco Use Types Packs/Day Years Used Date Smoking Tobacco: Never Assessed Comments Unknown Sex and Gender Information Value Date Recorded Sex Assigned at Not on file Legal Sex Female 2:48 PM WHEELCHAIR VAN DRIVER Gender Identity Female 12/28/2020 10:43 PM CDT Sexual Orientation Straight 12/28/2020 10 :43 PM CDT documented as of this encounter Last Filed Vital Signs Vital Sign Reading Time Taken Comments Blood Pressure - - Pulse - - Temperature 36.7 C (98.1 F) 02/13/2008 1:53 PM CDT Respiratory Rate - - Oxygen Saturation - - Inhaled Oxygen Concentration - - Weight 18.7 kg (41 lb 3.2 oz) 02/13/2008 1:53 PM CDT Height - - Body Mass Index - - documented in this encounter Plan of Treatment Not on file documented as of this encounter Visit Diagnoses Not on filedocumented in this encounter Care Teams Gauge Maker Apprentice Relationship Specialty Start Date End Date Kameron Davila MD PCP - General Family Medicine 03/27/14 documented as of this encounter
--- OUTSIDE RECORDS SUMMARY | 2025-08-03 00:03 | XMS_ITS | Encounter Summary ---
Author Organization [employer] Address [address] [place] [address] Care Team Providers Care Administrative Resident Name Role Phone Kameron Davila MD Primary Care Provider [phone] Encounter Details Date Type Department Care Team (Late st Contact Info) Description 07/05/2008 Historical Office Visit [facility] [employer] [facility] [address] [place] [address] Sunny Schafer MD [address] [place] [address] Social History Tobacco Use Types Packs/Day Years Used Date Smoking Tobacco: Never Assessed Comments Unknown Sex and Gender Information Value Date Recorded Sex Assigned at Not on file Legal Sex Female 2:48 PM PIERCING MILL OPERATOR Gender Identity Female 12/28/2020 10:43 PM CDT Sexual Orientation Straight 12/28/2020 10 :43 PM CDT documented as of this encounter Last Filed Vital Signs Vital Sign Reading Time Taken Comments Blood Pressure - - Pulse 88 07/05/2008 9:31 AM CDT Temperature 36.6 C (97.9 F) 07/05/2008 9:31 AM CDT Respiratory Rate 18 07/05/2008 9:31 AM CDT Oxygen Saturation - - Inhaled Oxygen Concentration - - Weight 19.5 kg (43 lb) 07/05/2008 9:31 AM CDT Height - - Body Mass Index - - documented in this encounter Plan of Treatment Not on file documented as of this encounter Visit Diagnoses Not on filedocumented in this encounter Care Teams Administrative Resident Relationship Specialty Start Date End Date Kameron Davila MD PCP - General Family Medicine 03/27/14 documented as of this encounter
--- OUTSIDE RECORDS SUMMARY | 2025-08-03 00:03 | XMS_ITS | Encounter Summary ---
Author Organization [facility] Address [address] [place] [address] Care Team Providers Care Contact Acid Plant Operator Helper Name Role Phone Kameron Davila MD Primary Care Provider [phone] Encounter Details Date Type Department Care Team (Late st Contact Info) Description 10/30/2007 Historical Office Visit [facility] Family Medicine [address] [place] [id number] Zan Rivas MD Social History Tobacco Use Types Packs/Day Years Used Date Smoking Tobacco: Never Assessed Comments Unknown Sex and Gender Information Value Date Recorded Sex Assigned at Not on file Legal Sex Female 2:48 PM PLANT TECHNICAL SPECIALIST Gender Identity Female 12/28/2020 10:43 PM CDT Sexual Orientation Straight 12/28/2020 10 :43 PM CDT documented as of this encounter Last Filed Vital Signs Vital Sign Reading Time Taken Comments Blood Pressure 92/64 10/30/2007 10:25 AM PLANT TECHNICAL SPECIALIST Pulse 100 10/30/2007 10:25 AM PLANT TECHNICAL SPECIALIST Temperature 36.7 C (98 F) 10/30/2007 10:25 AM PLANT TECHNICAL SPECIALIST Respiratory Rate - - Oxygen Saturation - - Inhaled Oxygen Concentration - - Weight 18.7 kg (41 lb 2 oz) 10/30/2007 10:25 AM PLANT TECHNICAL SPECIALIST Height 113 cm (3' 8.5) 10/30/2007 10:25 AM PLANT TECHNICAL SPECIALIST Body Mass Index 14.6 10/30/2007 10:25 AM PLANT TECHNICAL SPECIALIST Body Mass Index Percentile 28.60% 10/30/2007 10: 25 AM PLANT TECHNICAL SPECIALIST Growth Chart: CDC (Girls, 2- 20 Years) documented in this encounter Plan of Treatment Not on file documented as of this encounter Visit Diagnoses Not on filedocumented in this encounter Care Teams Contact Acid Plant Operator Helper Relationship Specialty Start Date End Date Kameron Davila MD PCP - General Family Medicine 03/27/14 documented as of this encounter
--- OUTSIDE RECORDS SUMMARY | 2025-08-03 00:03 | XMS_ITS | Clinical Summary ---
Author Organization [facility] Address [address] [place] [address] Phone Care Team Providers Care Ladderman Name Role Phone Kameron Davila MD Primary Care Provider Allergies Active Allergy Reactions Criticality Noted Date Comments Latex Rash Medium 01/20/2021 Rash Bacitracin-Polymyxin B Hives 11/07/2021 Shellfish Protein-Containing Drug Products Anaphylaxis High 03/27/2014 Medications acetaminophen (TYLENOL) 500 MG Tablet Take 2 Tablets by mouth every 6 hours as needed for Mild or more severe pain or Fever. 60 Tablet 2 Active Sertraline HCl (ZOLOFT PO) Take by mouth. Act oscar diphenhydrAMINE HCl (BENADRYL PO) Take by mouth. Activ e amphetamine-dex troamphetamine (ADDERALL) 15 MG Tablet 3 Active cetirizine (ZyrTEC) 10 MG Tablet Take 10 mg by mouth. Active SUMAtriptan (IMITREX) 50 MG Tablet Take 50 mg by mouth. 8 Active predniSONE (DELTASONE) 20 MG Tablet 3 Active tranexamic Acid (LYSTEDA) 650 MG Tablet TAKE 2 TABLETS BY MOUTH TID DURING MENSES DAYS 1 THROUGH 5 9 Active albuterol 108 (90 Base) MCG/ACT Aerosol Solution take by inhalation. 3 Active albuterol (PROVENTIL, VENTOLIN) (2.5 MG/3ML) 0.083% Nebulizer Soln take by inhalation. 7 Active albuterol 108 (90 Base) MCG/ACT Aerosol SolutionIndicat ions:Exacerbati on of asthma, unspecified asthma severity, unspecified whether persistent take 2 Puffs by inhalation every 4 hours as needed for Wheezing (shortness of breath). 6.7 g 3 Active Additional Information Patient not taking.Reported on 12/16/2024 mupirocin (BACTROBAN) 2 % OintmentIndicat ions:Skin infection Apply 3 times daily. Apply to affected area 3 times daily for 1-2 weeks until cleared 15 g 4 Active Additional Information Patient not taking.Reported on 12/16/2024 etonogestrel (NEXPLANON) 68 MG Implant 1 Each by Subcutaneous route. Active EPINEPHrine (EPIPEN) 0.3 MG/0.3ML Solution Auto-injector 0.3 mg by Intramuscular route. 2 Active Active Problems No known active problems Immunizations Immunization Administration Dates Next Due Influenza,Split Virus,Trivalent,Injectable,PF Social History Tobacco Use Types Packs/Day Years Used Date Smoking Tobacco: Never Smokeless Tobacco: Never Tobacco Cessation:Counseling Given: Not Answered Alcohol Use Standard Drinks/Week Comments Yes 0 (1 standard drink = 0.6 oz pur e alcohol) Socially Comments No Sex and Gender Information Value Date Recorded Sex Assigned at Not on file Legal Sex Female 3:14 AM TANK CAR MECHANIC Gender Identity Not on file Sexual Orientation Not on file Last Filed Vital Signs Vital Sign Reading Time Taken Comments Blood Pressure 124/81 12/16/2024 10:44 AM CDT Pulse 115 12/16/2024 10:44 AM CDT Temperature 36.7 C (98 F) 12/16/2024 10:44 AM CDT Respiratory Rate 18 12/16/2024 10:44 AM CDT Oxygen Saturation 95% 12/16/2024 10:44 AM CDT Inhaled Oxygen Concentration - - Weight 38.6 kg (85 lb) 12/16/2024 10:44 AM CDT Height 152.4 cm (5') 12/16/2024 10:44 AM CDT Body Mass Index 16.6 12/16/2024 10:44 AM CDT Plan of Treatment Health Maintenance Due Date Last Done Comments Hepatitis C Virus (HCV) Screening 2000 Pap Smear 2021 Influenza Immunization (#1) 06/10/202506/10, 05/24/2023, 07/16/2016, Additional history exists SARS-COV-2 Immunization ( season) 2025 11/06/2021, 10/06/2021 Respiratory Syncytial Virus (RSV) Immunization (Adult) (1 - 1-dose 75+ series) 2075 Varicella Immunization Discontinued 03/08/2002 Measles Mumps Rubella (MMR) Immunization Discontinued 12/09/2005, 02/09/2002 Polio (IPV) Immunization Discontinued 006, 12/08/2001, 04/24/2001, Additional history exists Human Papillomavirus (HPV) Immunization Completed 07/16/2016, 04/20/2016, 02/25/2015 Hepatitis A Immunization Discontinued 01/17/2017, 04/2016 Meningococcal Immunization (ACWY) Completed 05/15/2018, 04/26/2014 DTaP/Tdap/Td Immunization Discontinued 2022, 05/24/2012, 12/09/2005, Additional history exists TdaP Immunization Completed 05/17/2023, 05/24/2012 Hepatitis B Immunization Completed 023, 12/08/2001, 02/10/2001, Additional history exists Pneumococcal Immunization Combined Aged Out No longer eligible based on patient's age to complete this topic Rotavirus Immunization Aged Out No lo nger eligible based on patient's age to complete this topic Insurance [facility] Care Teams Ladderman Relationship Specialty Start Date End Date Kameron Davila MD PCP - General Sports Medicine 12/22/17
--- OUTSIDE RECORDS SUMMARY | 2025-08-03 00:03 | XMS_ITS | Encounter Summary ---
Author Organization [employer] Address [address] [place] [address] Care Team Providers Care Software Packager Name Role Phone Kameron Davila MD Primary Care Provider [phone] Encounter Details Date Type Department Care Team (Late st Contact Info) Description 02/16/2007 Historical Office Visit [facility] [address] [address] Provider, Not In System Social History Tobacco Use Types Packs/Day Years Used Date Smoking Tobacco: Never Assessed Comments Unknown Sex and Gender Information Value Date Recorded Sex Assigned at Not on file Legal Sex Female 2:48 PM DINING ROOM CAPTAIN Gender Identity Female 12/28/2020 10:43 PM CDT Sexual Orientation Straight 12/28/2020 10 :43 PM CDT documented as of this encounter Last Filed Vital Signs Vital Sign Reading Time Taken Comments Blood Pressure - - Pulse 104 02/16/2007 5:22 PM CDT Temperature 37.3 C (99.2 F) 02/16/2007 5:22 PM CDT Respiratory Rate 24 02/16/2007 5:22 PM CDT Oxygen Saturation - - Inhaled Oxygen Concentration - - Weight 17.2 kg (38 lb) 02/16/2007 5:22 PM CDT Height - - Body Mass Index - - documented in this encounter Plan of Treatment Not on file documented as of this encounter Visit Diagnoses Not on filedocumented in this encounter Care Teams Software Packager Relationship Specialty Start Date End Date Kameron Davila MD PCP - General Family Medicine 03/27/14 documented as of this encounter
--- OUTSIDE RECORDS SUMMARY | 2025-08-03 00:03 | XMS_ITS | Encounter Summary ---
Author Organization [employer] Address [address] [place] [address] Care Team Providers Care Crm System Administrator Name Role Phone Kameron Davila MD Primary Care Provider [phone] Encounter Details Date Type Department Care Team (Late st Contact Info) Description 10/26/2008 Historical Office Visit [facility] [address] [address] Aris Mcdaniel, SENIOR RADIATION THERAPIST Social History Tobacco Use Types Packs/Day Years Used Date Smoking Tobacco: Never Assessed Comments Unknown Sex and Gender Information Value Date Recorded Sex Assigned at Not on file Legal Sex Female 2:48 PM AUTISM TUTOR Gender Identity Female 12/28/2020 10:43 PM CDT Sexual Orientation Straight 12/28/2020 10 :43 PM CDT documented as of this encounter Last Filed Vital Signs Vital Sign Reading Time Taken Comments Blood Pressure - - Pulse - - Temperature 36.8 C (98.3 F) 10/26/2008 8:46 AM AUTISM TUTOR Respiratory Rate - - Oxygen Saturation - - Inhaled Oxygen Concentration - - Weight 20.4 kg (45 lb) 10/26/2008 8:46 AM AUTISM TUTOR Height - - Body Mass Index - - documented in this encounter Plan of Treatment Not on file documented as of this encounter Visit Diagnoses Not on filedocumented in this encounter Care Teams Crm System Administrator Relationship Specialty Start Date End Date Kameron Davila MD PCP - General Family Medicine 03/27/14 documented as of this encounter
--- OUTSIDE RECORDS SUMMARY | 2025-08-03 00:03 | XMS_ITS | Clinical Summary ---
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 Name Role Phone Boby Turk MD Primary Care Provi jordan Boby Turk MD Unavailable [phone] Allergies Active Allergy Reactions Criticality Noted Date Comments Adhesive Tape-Silicones Rash,Hives Medium 12/18/2024 Bacitracin Rash Medium 01/20/2021 Rash Bacitracin-Polymyxin B Hives Medium 11/07/2021 Covid-19 Vaccine, Mrna, [id number], Lnp-S (Rudder) Other (See comments) Medium 11/25/2021 Chest pian and SOB Latex Rash Medium 01/20/2021 Rash Neomycin Rash Medium 01/20/2021 Rash Qqfhtdqx-Myjjowyojf-Rr lymyxin Rash Medium 03/27/2014 Polymyxin B Rash Medium 01/20/2021 Rash Shellfish Containing Products Anaphylaxis High 03/27/2014 Medications albuterol HFA (PROVENTIL HFA,VENTOLIN HFA,PROAIR HFA) 90 mcg/actuation inhaler Inhale 2 puffs every 4 (four) hours as needed Active cetirizine (ZyrTEC) 10 mg tablet Take 10 mg by mouth nightly Active EPINEPHrine (EPIPEN 2-DEVON) 0.3 mg/0.3 mL auto-injection syringe 6 Active etonogestrel (NEXPLANON) 68 mg implant Inject 1 each under the skin Active SUMAtriptan (IMITREX) 50 mg tablet TAKE 1 TABLET BY MOUTH AT ONSET OF HEADACHE. DOSE MAY BE REPEATED IN 2 HOURS IF NECESSARY. 8 Active tranexamic acid (LYSTEDA) 650 mg tablet TAKE 2 TABLETS BY MOUTH TID DURING MENSES DAYS 1 THROUGH 5 9 Active dextroamphetamine-a mphetamine (ADDERALL) 15 mg tablet Take 1 tablet (15 mg total) by mouth 2 (two) times a day 1 Active lamoTRIgine 25 mg (42) -100 mg (7) tablets,dose pack 25mg oral daily X 2 weeks, 50mg oral daily X 2 weeks, 100mg oral dialy X 1 week. 2 Active ALPRAZolam (XANAX) 0.5 mg tablet Take 1 tablet (0.5 mg total) by mouth 3 (three) times a day as needed 1 Active HYDROcodone-acetami nophen (NORCO) 5-325 mg per tablet Take 1 tablet by mouth 3 Active ondansetron ODT (ZOFRAN-ODT) 4 mg disintegrating tablet Take 1 tablet (4 mg total) by mouth every 8 (eight) hours as needed for nausea 20 tablet 5 Active Active Problems Problem Noted Date Diagnosed Date Chronic kidney disease, stage 2 (mild) 1 Cyst of kidney, acquired 01/27/2021 Urinary tract infection 01/23/2021 Von Willebrand disease 09/19/2019 Tear of left acetabular labrum 07/03/2019 Left hip pain 07/03/2019 Mood disorder 12/20/2013 Overview (01/11/2025): BOBY TURK MD Allergy to seafood 09/05/2013 Overview (07/03/2019): Dr. Soraida DUGGAN [facility] Asthma 10/28/2010 Overview (07/03/2019): MICHELLE MENDIETA ASST Encounters Date Type Department Care Team Description 07/08/2025 Orders Only [facility] Medicine Infectious Diseases [address] [place] [address] Emily Funes MD 06/28/2025 Orders Only [facility] Infectious Diseases [address] [place] [address] Emily Funes MD 06/04/2025 8:30 AM CDT Office Visit [facility] Orthopaedic Surgery [address] [place] [address] Bobby Castro MD Chronic left hip pain (Primary Dx); History of arthroscopy of hip 05/28/2025 Telephone [facility] Orthopaedic Surgery [address] [place] [address] Joanie VooraCLAUDIA morales 05/19/2025 5:47 PM CDT - 05/19/2025 10:50 PM CDT Emergency [facility] Emergency Department [address] [place] [address] Abdominal pain, RLQ (right lower quadrant) (Primary Dx) Discharge Disposition: Discharge to home or self care from Last 3 Months Immunizations Immunization Administration Dates Next Due DTaP 12/09/2005, 3,06/09/2001,04/24,02/10/2001 HPV, Quadrivalent 02/25/2015 HPV9 07/16/2016,04/20/2016 Hep A, Pediatric 01/17/2017,07/16/2016 Hep B Vaccine 12/08/2001,02/10/2001,01/11/2001 Hib (HbOC) 12/08/2001, 1,06/09/2001,04/24 IPV 12/09/2005, 2,04/24/2001,02/10 Influenza LAIV (Nasal) 08/06/2008 Influenza, Quadrivalent, Spl it, Preservative Free, Intramuscular 07/16/2016 Influenza, Trivalent, IM (MDV) 08/20/2010 Influenza, Trivalent, Preser vative Free, Intramuscular 06/21/2024 MMR 12/09/2005,02/09/2002 Meningococcal MCV4P (Menactra) 05/15/2018,2013 PPD TEST 12/19/2018,12/12/2018 Tdap 05/17/2023,05/24/2012 Varicella 03/08/2002 Surgical History Surgery Date Site/Laterality Comments TONSILLECTOMY 10/10/2005 - 10/09/2006 WISDOM TOOTH EXTRACTION 10/10/2015 - 10/09/2016 Medical History Medical History Date Comments Asthma Migraines Pneumonia UTI (urinary tract infection) Tear of left acetabular labrum 07/03/2019 Allergy to seafood 09/05/2013 Dr. Soraida zhang ENT [facility] Episodic mood disorder 12/20/2013 BOBY WILSON MD Von Willebrand disease (HCC) 09/19/2019 Family History Medical History Relation Name Comments Hypertension Father Cancer Mother Lung Problems Mother Thyroid Mother Relation Name Status Comments Father Alive Mother Social History Tobacco Use Types Packs/Day Years Used Date Smoking Tobacco: Never Smokeless Tobacco: Never Personal Safety Answer Date Recorded Have you ever been in or are you currently in a harmful physical or emotional relationship or is someone making you feel afraid or unsafe? Denies 05/19/2025 Comments No Sex and Gender Information Value Date Recorded Sex Assigned at Not on file Legal Sex Female 1:56 PM CDT Gender Identity Not on file Sexual Orientation Not on file Obstetrics History Last Filed Vital Signs Vital Sign Reading Time Taken Comments Blood Pressure 114/78 05/19/2025 10:43 PM CDT Pulse 68 05/19/2025 10:43 PM CDT Temperature 36.3 C (97.3 F) 05/19/2025 5:28 PM CDT Respiratory Rate 18 05/19/2025 10:43 PM CDT Oxygen Saturation 99% 05/19/2025 10:43 PM CDT Inhaled Oxygen Concentration - - Weight 38.8 kg (85 lb 8.6 oz) 05/19/2025 5:28 PM CDT Height 152.4 cm (5') 05/19/2025 5:28 PM CDT Body Mass Index 16.71 05/19/2025 5:28 PM CDT Plan of Treatment Health Maintenance Due Date Last Done Comments Cervical Cancer Screening 2000 Depression Screening 2000 Hepatitis C Screening 2000 Varicella Vaccines (1 of 2 - 13+ 2-dose series) 2013 03/08/2002 Regular Well Visit/Exam 18-64 2018 Pneumococcal vaccine <65 (1 of 2 - PCV) 2019 Covid-19 Vaccine (3 - 2024-2 6 season) 2025 11/06/2021, 10/06/2021 Influenza Vaccine (#1) 2025 , 05/24/2023, 07/16/2016, Additional history exists DTaP/Tdap/Td Vaccine (8 - Td or Tdap) 05/17/2033 05/17/2023, 05/24/2012, 12/09/2005, Additional history exists HPV Vaccines Completed 07/16/2016, 04/09, 02/25/2015 Hepatitis B Screening Completed 05/24/2023 , 12/08/2001, 02/10/2001, Additional history exists Medical Devices Implanted Type Area Special Inspector Device Identifier Shelf Expiration Date Model / Serial / Lot [employer] [id number] [employer] Suture Labrum - [id number] Implanted:Qty: 1 on 09/24/2019 by Raymundo Gibson MD at [facility] Left: Hip [employer] 07/12/2020 [id number] / / [id number] [employer] [id number] [employer] Suture Labrum - [id number] Implanted:Qty: 1 on 09/24/2019 by Raymundo Gibson MD at [facility] Left: Hip [employer] 07/12/2020 [id number] / / [id number] [employer] [id number] [employer] Driver Lock [employer] Suture Labrum - [id number] Implanted:Qty: 1 on 09/24/2019 by Raymundo Gibson MD at [facility] Left: Hip [employer] 07/12/2020 [id number] / / [id number] [employer] 25-1800 Q-Fix 1.8mm Jordan Suture - [id number] Implanted:Qty: 1 on 09/24/2019 by Raymundo Gibson MD at [facility] Left: Hip [employer] 05/04/2022 [id number] / / [id number] Procedures Procedure Name Priority Date/Time Associated Diagnosis Comments CT ABDOMEN PELVIS W CONTRAST ED 05/19/2025 10:[address] ABDOMEN PELVIS WO CONTRAST ED 05/19/2025 6:26 PM CDT EGFR STAT 05/19/2025 5:35 PM CDT URINALYSIS, MICROSCOPIC ONLY STAT 05/19/2025 5:35 PM CDT DIFFERENTIAL AUTO STAT 05/19/2025 5:3 5 PM CDT LIPASE STAT 05/19/2025 5:35 PM CDT COMPREHENSIVE METABOLIC PANEL STAT 05/19/2025 5:35 PM CDT CBC WITH AUTO DIFFERENTIAL STAT 05/19/2025 5:35 PM CDT URINALYSIS AND REFLEX TO MICROSCOPIC AND CULTURE STAT 05/19/2025 5:35 PM CDT POCT HCG, URINE Routine 05/19/2025 5:33 PM CDT from Last 3 Months Results * CT Abdomen Pelvis W Contrast (05/19/2025 10:08 PM CDT) Anatomical Region Laterality Modality Body N/A Computed Tomogra phy 05/19/2025 10:1 6 PM CDT Narrative 05/19/2025 10:25 PM CDT EXAM DESCRIPTION: CT ABDOMEN PELVIS W CONTRAST REASON FOR STUDY: RLQ abdominal pain, oral contrast Pt reports this morning at approx 0130 started having RLQ abd pain, intermittently radiates into R flank. TECHNIQUE: CT scan of the abdomen and pelvis performed with intravenous and with oral contrast using helical scanning technique with dynamic intravenous contrast injection. Reconstructed coronal and sagittal MPR images reviewed. All images stored on PACS. Automated exposure control was used as a dose optimization technique for this examination. CONTRAST TYPE/DOSE: 100mL of IOVERSOL 350 MG IODINE/ML INTRAVENOUS SYRINGE injected via intravenous COMPARISON: CT of the abdomen and pelvis of May 19, 2025. FINDINGS: LOWER CHEST: The lung bases are clear. LIVER: The liver is normal in attenuation without focal lesion. GALLBLADDER: No stones identified. Normal wall. No evidence of pericholecystic fluid. BILE DUCTS: No intrahepatic or extrahepatic ductal dilatation. PANCREAS: Normal. SPLEEN: No focal lesions. Spleen is normal in size. ADRENALS: Normal. KIDNEYS/URINARY TRACT: There is a benign-appearing low density cyst in the right kidney. The left renal parenchyma appears unremarkable. There is a punctate nonobstructing stone in the right kidney. There is no hydronephrosis or hydroureter. Urinary bladder is unremarkable. VASCULATURE: No acute abnormality seen. No abdominal aortic aneurysm. GI: The stomach appears normal. There is no significant small bowel dilation or visible thickening. No gross colonic abnormalities identified. The appendix is not visualized, however, there are no pericecal inflammatory changes seen to suggest appendicitis. PERITONEUM/MESENTERY: No ascites or free air. LYMPH NODES: There are no enlarged lymph nodes seen by CT size criteria. RETROPERITONEUM: No retroperitoneal abnormalities. REPRODUCTIVE: Uterus and adnexae are unremarkable. MUSCULOSKELETAL: No significant abnormality. OTHER: No other abnormality. IMPRESSION: 1. No acute findings in the abdomen or pelvis. 2. Appendix not visualized, however, there are no pericecal inflammatory changes seen to suggest an occult appendicitis. 3. Punctate nonobstructing stone in the right kidney. THIS IS AN ELECTRONICALLY VERIFIED FINAL REPORT 05/19/2025 10:25 PM - Electronically signed by Yanely Burnham M.D. SN: Report ID: [id number] Reading Location: [id number] Procedure Note Yanely Burnham MD - 05/19/2025 EXAM DESCRIPTION: CT ABDOMEN PELVIS W CONTRAST REASON FOR STUDY: RLQ abdominal pain, oral contrast Pt reports this morning at approx 0130 started having RLQ abd pain, intermittently radiates into R flank. TECHNIQUE: CT scan of the abdomen and pelvis performed with intravenousand with oral contrast using helical scanning technique with dynamicintravenous contrast injection. Reconstructed coronal and sagittal MPR imagesreviewed. All images stored on PACS. Automated exposure control was used as a dose optimization technique for this examination. CONTRAST TYPE/DOSE: 100mL of IOVERSOL 350 MG IODINE/ML INTRAVENOUSSYRINGE injected via intravenous COMPARISON: CT of the abdomen and pelvis of May 19, 2025. FINDINGS: LOWER CHEST: The lung bases are clear. LIVER: The liver is normal in attenuation without focal lesion. GALLBLADDER: No stones identified. Normal wall. No evidence of pericholecystic fluid. BILE DUCTS: No intrahepatic or extrahepatic ductal dilatation. PANCREAS: Normal. SPLEEN: No focal lesions. Spleen is normal in size. ADRENALS: Normal. KIDNEYS/URINARY TRACT: There is a benign-appearing low density cyst inthe right kidney. The left renal parenchyma appears unremarkable. There dominik punctate nonobstructing stone in the right kidney. There is no hydronephrosis or hydroureter. Urinary bladder is unremarkable. VASCULATURE: No acute abnormality seen. No abdominal aortic aneurysm. GI: The stomach appears normal. There is no significant small bowel dilation or visible thickening. No gross colonic abnormalitiesidentified. The appendix is not visualized, however, there are no pericecalinflammatory changes seen to suggest appendicitis. PERITONEUM/MESENTERY: No ascites or free air. LYMPH NODES: There are no enlarged lymph nodes seen by CT size criteria. RETROPERITONEUM: No retroperitoneal abnormalities. REPRODUCTIVE: Uterus and adnexae are unremarkable. MUSCULOSKELETAL: No significant abnormality. OTHER: No other abnormality. IMPRESSION: 1. No acute findings in the abdomen or pelvis. 2. Appendix not visualized, however, there are no pericecal inflammatory changes seen to suggest an occult appendicitis. 3. Punctate nonobstructing stone in the right kidney. THIS IS AN ELECTRONICALLY VERIFIED FINAL REPORT 05/19/2025 10:25 PM - Electronically signed by Yanely Burnham M.D. SN: Report ID: [id number] Reading Location: [place] [address] Kym Puente NP IMG CT PROCEDURES Final Result * CT Abdomen Pelvis WO Contrast (05/19/2025 6:26 PM CDT) Anatomical Region Laterality Modality Body N/A Computed Tomogra phy 05/19/2025 6:44 PM CDT Narrative 05/19/2025 6:57 PM CDT EXAM DESCRIPTION: CT ABDOMEN PELVIS WO CONTRAST REASON FOR STUDY: Abdominal/flank pain, stone suspected this morning at approx 0130 started having RLQ abd pain, intermittently radiates into R flank. Was seen at urgent care and they were only able to do a KUB xray, showed possible 2 mm R kidney stone, imaging report states CT abd pelvis should be considered for further eval. TECHNIQUE: CT scan of the abdomen and pelvis performed without intravenous and without oral contrast using helical scanning technique. Reconstructed coronal and sagittal MPR images reviewed. All images stored on PACS. Automated exposure control was used as a dose optimization technique for this examination. COMPARISON: CT 01/20/2021 FINDINGS: The sensitivity for detection of visceral lesions is diminished without the use of intravenous contrast. LOWER CHEST: Limited view through the lung base demonstrates no infiltrate or effusion. LIVER: Normal size. No identified cystic or solid masses. GALLBLADDER: No stones or inflammatory change. BILE DUCTS: No intrahepatic or extrahepatic ductal dilatation. SPLEEN: Normal size. No focal lesions. PANCREAS: No identified cystic or solid masses. No significant calcifications. No adjacent inflammation or peripancreatic fluid collections. Pancreatic duct not dilated. ADRENALS: Normal. KIDNEYS/URINARY TRACT: The right kidney demonstrates a 2.1 mm nonobstructing stone of the interpolar region. Tiny vague other areas of medullary calcification. There is no hydronephrosis. No evidence of a ureteral stone. The left kidney demonstrates no stones stones with some vague areas of likely medullary calcification. Bladder is unremarkable. GI: Mild stool of the colon with no acute inflammatory change. No obstruction. The appendix is not well seen as a distinct structure in this patient with very little intraperitoneal fat. No definite inflammatory international exchange coordinator the expected bed stomach. If there is strong clinical concern, follow-up imaging could be obtained with oral contrast and a significant delay with IV contrast. Loops of small bowel are unremarkable. PERITONEUM: No ascites or free air. RETROPERITONEUM: No mass or adenopathy. REPRODUCTIVE: No significant abnormality. VASCULATURE: No abdominal aortic aneurysm. MUSCULOSKELETAL: No suspicious lytic or blastic lesion. OTHER: No other abnormality. IMPRESSION: 1. There is a 2.1 mm nonobstructing stone of the interpolar region of the right kidney. 2. No hydronephrosis or hydroureter. No ureteral stone. 3. The appendix is not well seen as a distinct structure in this patient with very little intraperitoneal fat. No definite inflammatory international exchange coordinator the expected bed. THIS IS AN ELECTRONICALLY VERIFIED FINAL REPORT 05/19/2025 6:57 PM - Electronically signed by Sunny Souza M.D. MJ: MARK Report ID: [id number] Reading Location: [id number] Procedure Note Sunny Souza MD - 05/19/2025 EXAM DESCRIPTION: CT ABDOMEN PELVIS WO CONTRAST REASON FOR STUDY: Abdominal/flank pain, stone suspected this morning at approx 0130 started having RLQ abd pain, intermittently radiates into R flank. Was seen at urgent care and they were only able todo a KUB xray, showed possible 2 mm R kidney stone, imaging report states CTabd pelvis should be considered for further eval. TECHNIQUE: CT scan of the abdomen and pelvis performed without intravenousand without oral contrast using helical scanning technique. Reconstructed coronal and sagittal MPR images reviewed. All images stored on PACS.Automated exposure control was used as a dose optimization technique for this examination. COMPARISON: CT 01/20/2021 FINDINGS: The sensitivity for detection of visceral lesions is diminished without the use of intravenous contrast. LOWER CHEST: Limited view through the lung base demonstrates noinfiltrate or effusion. LIVER: Normal size. No identified cystic or solid masses. GALLBLADDER: No stones or inflammatory change. BILE DUCTS: No intrahepatic or extrahepatic ductal dilatation. SPLEEN: Normal size. No focal lesions. PANCREAS: No identified cystic or solid masses. No significant calcifications. No adjacent inflammation or peripancreatic fluidcollections. Pancreatic duct not dilated. ADRENALS: Normal. KIDNEYS/URINARY TRACT: The right kidney demonstrates a 2.1 mm nonobstructing stone of theinterpolar region. Tiny vague other areas of medullary calcification. There is no hydronephrosis. No evidence of a ureteral stone. The left kidney demonstrates no stones stones with some vague areas oflikely medullary calcification. Bladder is unremarkable. GI: Mild stool of the colon with no acute inflammatory change. No obstruction. The appendix is not well seen as a distinct structure inthis patient with very little intraperitoneal fat. No definite inflammatorychange over the expected bed stomach. If there is strong clinical concern,follow-up imaging could be obtained with oral contrast and a significant delay withIV contrast. Loops of small bowel are unremarkable. PERITONEUM: No ascites or free air. RETROPERITONEUM: No mass or adenopathy. REPRODUCTIVE: No significant abnormality. VASCULATURE: No abdominal aortic aneurysm. MUSCULOSKELETAL: No suspicious lytic or blastic lesion. OTHER: No other abnormality. IMPRESSION: 1. There is a 2.1 mm nonobstructing stone of the interpolar region ofthe right kidney. 2. No hydronephrosis or hydroureter. No ureteral stone. 3. The appendix is not well seen as a distinct structure in this patient with very little intraperitoneal fat. No definite inflammatory change overthe expected bed. THIS IS AN ELECTRONICALLY VERIFIED FINAL REPORT 05/19/2025 6:57 PM - Electronically signed by Sunny Souza M.D. MJ: MARK Report ID: [id number] Reading Location: [place] [address] Kym Ann-Marie Puente RADIAL SAW OPERATOR IMG CT PROCEDURES Final Result * eGFR (05/19/2025 5:35 PM CDT) eGFR >90 >=60 mL/min/1. 73 m2 Comment: Interpretive Data Reference Interval Normal >/= 90 mL/min/1.73m2 Mildly decreased* 60 - 89 mL/min/1.73m2 Mildly to moderately decreased 45 - 59 mL/min/1.73m2 Moderately to severely decreased 30 - 44 mL/min/1.73m2 Severely decreased 15 - 29 mL/min/1.73m2 Kidney Failure < 15 mL/min/1.73m2 *Relative to young adult level Estimated glomerular filtration rate is determined by the 2020 CKD-EPI equation recommended by the National Kid[employer] (A Unifying Approach to GFR Estimation: Recommendations of the NKF-ASK Task Force on Reassessing the Inclusion of Race in Diagnosing Kidney Disease, GUSTAVOSShelbi 2020). The CKD-EPI equation should not be used for patients with unstable renal function and has not been validated in children and those over 70. Current interpretive data was last reviewed 2021. Testing performed by: [address] [address] Blood 05/19/2025 5:35 PM CDT 05/19/2025 5:46 PM CDT us Kym Puente RADIAL SAW OPERATOR LAB BLOOD ORDERABLES Fin al Result JONA [facility] [place] [address] * (ABNORMAL) Differential, auto (05/19/2025 5:35 PM CDT) Neutrophil abs 3.52 1.50 - 6.50 K/cumm Comment:Testing performed by : [address] [address] Imm gran abs 0.02 0.00 - 0.10 K/cumm JONA Comment:Testing performed by : [address] [address] Lymphocyte abs 3.45(H) 0.80 - 3.30 K/cumm JONA Comment:Testing performed by : [address] [address] Monocyte abs 0.62 0.20 - 0.80 K/cumm JONA Comment:Testing performed by : [address] [address] Eosinophil abs 0.26 0.00 - 0.50 K/cumm JONA Comment:Testing performed by : [address] [address] Basophil abs 0.04 0.00 - 0.10 K/cumm JONA Comment:Testing performed by : [address] [address] Neutrophil pct 44.5 % JONA Comment: Interpretive Data Percent cell count reference ranges are not reported, since discordance with absolute values may lead to misinterpretation of CBC data. Current Interpretive Data was last revised on 2018. Testing performed by: [address] [address] Imm gran pct 0.3 % [facility] Comment: Interpretive Data Percent cell count reference ranges are not reported, since discordance with absolute values may lead to misinterpretation of CBC data. Current Interpretive Data was last revised on 2018. Testing performed by: [address] [address] Lymphocyte pct 43.6 % [facility] Comment: Interpretive Data Percent cell count reference ranges are not reported, since discordance with absolute values may lead to misinterpretation of CBC data. Current Interpretive Data was last revised on 2018. Testing performed by: [address] [address] Monocyte pct 7.8 % [facility] Comment: Interpretive Data Percent cell count reference ranges are not reported, since discordance with absolute values may lead to misinterpretation of CBC data. Current Interpretive Data was last revised on 2018. Testing performed by: [address] [address] Eosinophil pct 3.3 % [facility] Comment: Interpretive Data Percent cell count reference ranges are not reported, since discordance with absolute values may lead to misinterpretation of CBC data. Current Interpretive Data was last revised on 2018. Testing performed by: [address] [address] Basophil pct 0.5 % [facility] Comment: Interpretive Data Percent cell count reference ranges are not reported, since discordance with absolute values may lead to misinterpretation of CBC data. Current Interpretive Data was last revised on 2018. Testing performed by: [address] [address] Blood 05/19/2025 5:35 PM CDT 05/19/2025 5:46 PM CDT Kym Puente RADIAL SAW OPERATOR LAB BLOOD ORDERABLES Fin al Result JONA [address] [facility] Department of Laboratories [place], [place] [id number] * (ABNORMAL) Urinalysis reflex to microscopic and culture Urine (05/19/2025 5:35 PM CDT) Color, ur Yellow Yellow Comment:Testing performed by : [address] [address] Clarity, ur Clear Clear JONA Comment:Testing performed by : [address] [address] Specific gravity, ur 1.022 1.003 - 1.030 JONA Comment:Testing performed by : [address] [address] pH, urine 6.5 JONA Comment: Interpretive Data U rine pH is affected by diet, medications, systemic acid-base disturbances, and renal tubular function. pH may affect urinary stone formation. For example, urine pH below 6.0 may help reduce the tendency for calcium phosphate stones and pH greater than 6.0 may reduce the tendency for uric acid stone formation. Source: [facility] [employer] Current Interpretive Data was last revised on 2017 Testing performed by: [address] [address] Protein, ur ql Negative Negative JONA Comment:Testing performed by : [address] [address] Glucose, ur ql Negative Negative JNOA Comment:Testing performed by : [address] [address] Ketones, ur Negative Negative JONA Comment:Testing performed by : [address] [address] Bilirubin, ur Negative Negative JONA Comment:Testing performed by : [address] [address] Blood, ur 3+(A) Negative JONA MATTSON Comment:Testing performed by : [address] [address] Urobilinogen, ur <2.0 <2.0 mg/dL JONA MATTSON Comment:Testing performed by : [address] [address] Nitrite, ur Negative Negative JONA MATTSON Comment:Testing performed by : [address] [address] Leukocyte esterase, ur Negative Negative JONA MATTSON Comment:Testing performed by : [address] [address] UA reflex comment Reflex to microscopic UA will be performed. OJNA MATTSON Comment:Testing performed by : [address] [address] Urine 05/19/2025 5:35 PM CDT 05/19/2025 5:46 PM CDT us Kym Puente RADIAL SAW OPERATOR LAB MICROBIOLOGY - GENER AL ORDERABLES Final Result JONA MATTSON [facility] [place] [address] * CBC with auto differential (05/19/2025 5:35 PM CDT) WBC 7.91 3.80 - 9.90 K/cumm Comment:Testing performed by : [address] [address] Hgb 13.4 11.9 - 15.5 g/dL JONA MATTSON Comment:Testing performed by : [address] [address] Hct 40.2 35.6 - 45.5 % JONA MATTSON Comment:Testing performed by : [address] [address] Plt 366 150 - 400 K/cumm JONA MATTSON Comment:Testing performed by : [address] [address] MPV 9.8 9.1 - 12.3 fL JONA MATTSON Comment:Testing performed by : [address] [address] RBC 4.54 3.90 - 5.20 M/cumm JONA MATTSON Comment:Testing performed by : [address] [address] MCV 88.5 81.3 - 96.4 fL JONA MATTSON Comment:Testing performed by : [address] [address] MCH 29.5 27.1 - 33.3 pg JONA MATTSON Comment:Testing performed by : [address] [address] MCHC 33.3 32.3 - 35.7 g/dL JONA MATTSON Comment:Testing performed by : [address] [address] RDW CV 13.4 11.1 - 14.9 % JONA MATTSON Comment:Testing performed by : [address] [address] RDW SD 43.8 35.7 - 48.1 fL JONA MATTSON Comment:Testing performed by : [address] [address] NRBC abs 0.00 0.00 - 0.01 K/cumm JONA MATTSON Comment:Testing performed by : [address] [address] Blood Venous blood specimen / Unknown 05/19/2025 5:35 PM CDT 05/19/2025 5:46 PM CDT Kym Puente RADIAL SAW OPERATOR LAB BLOOD ORDERABLES Fin al Result JONA [address]25 [facility] Department of Laboratories [place], [place] [id number] * (ABNORMAL) Urinalysis, microscopic only (05/19/2025 5:35 PM CDT) WBC, ur 0-5 0 - 5 /HPF Comment:Testing performed by : [address] [address] RBC, ur 0-2 0 - 2 /HPF JONA MATTSON Comment:Testing performed by : [address] [address] Epithelial cells, squamous, ur 21-50(A) 0 - 5 /HPF JONA MATTSON Comment:Testing performed by : [address] [place] [address] Mucous, ur Present(A) JONA Comment:Testing performed by : [address] [address] Culture Reflex Comment Reflex conditions for urine culture (WBC >10) not met. JONA Comment:Testing performed by : [address] [address] Urine 05/19/2025 5:35 PM CDT 05/19/2025 5:46 PM CDT Kym Ann-Marie Puente RADIAL SAW OPERATOR LAB URINE ORDERABLES Fin al Result Performing Organization Address City/[facility]/ZIP Co de Phone Number [address] [place] [address] * Lipase (05/19/2025 5:35 PM CDT) Lipase 32 10 - 99 Units/L Comment:Testing performed by : [address] [address] Blood Venous blood specimen / Unknown 05/19/2025 5:35 PM CDT 05/19/2025 5:46 PM CDT Kym Puente RADIAL SAW OPERATOR LAB BLOOD ORDERABLES Fin al Result Performing Organization Address [facility] Co de Phone Number [address] [address] * Comprehensive metabolic panel (05/19/2025 5:35 PM CDT) Sodium 139 135 - 145 mmol/L Comment:Testing performed by : [address] [address] Potassium, pl 4.3 3.3 - 4.9 mmol/L JONA MATTSON Comment:Testing performed by : [address] [address] Chloride 103 97 - 110 mmol/L JONA MATTSON Comment:Testing performed by : [address] [address] CO2 24 22 - 32 mmol/L JONA Comment:Testing performed by : [address] [address] Anion gap 12 2 - 15 mmol/L JONA Comment:Testing performed by : [address] [address] BUN 11 6 - 25 mg/dL JONA Comment:Testing performed by : [address], [place]., [address] Creatinine 0.63 0.60 - 1.10 mg/dL JONA Comment:Testing performed by : [address] [address] Glucose 92 70 - 199 mg/dL JONA Comment: Interpretive Data Fasting glucose >/= 126 mg/dl is diagnostic for diabetes. Fasting is defined as no caloric intake for at least 8 hours. Fasting glucose between 100 mg/dl to 125 mg/dl is diagnostic of prediabetes. In a patient with classic symptoms of hyperglycemia or hyperglycemic crisis, a random glucose >/= 200 mg/dl is diagnostic for diabetes. In the absence of unequivocal hyperglycemia, results should be confirmed by repeat testing. The classification and Diagnosis of Diabetes Diabetes Care 2021; 46: S19-S40. Current interpretive data was last revised 2022. Testing performed by: [address] [address] Calcium 9.7 8.5 - 10.3 mg/dL JONA Comment:Testing performed by : [address] [address] Bilirubin, total 0.4 0.1 - 1.2 mg/dL JONA Comment:Testing performed by : [address] [address] Protein, pl 8.1 6.5 - 8.5 g/dL JONA Comment:Testing performed by : [address] [address] Albumin 5.0 3.5 - 5.0 g/dL JONA Comment:Testing performed by : [address] [address] Alk phos 66 40 - 130 Units/L CERTYREE MATTSON Comment:Testing performed by : [address] [address] ALT 14 7 - 45 Units/L JONA MATTSON Comment:Testing performed by : [address] [address] AST 23 10 - 45 Units/L JONA MATTSON Comment:Testing performed by : [address] [address] Blood 05/19/2025 5:35 PM CDT 05/19/2025 5:46 PM CDT Kym Puente RADIAL SAW OPERATOR LAB BLOOD ORDERABLES Fin al Result Performing Organization Address [facility]/ZIP Co de Phone Number [id number] [place] [address] * POCT hCG, urine (05/19/2025 5:33 PM CDT) HCG, ur, POC Negative Negative Comment:Testing performed by : [address] [address] Urine 05/19/2025 5:33 PM CDT 05/19/2025 5:33 PM CDT us Notinfile Unknown LAB POCT ORDERABLES - DEVICE F inal Result Performing Organization Address [facility] Co de Phone Number [address] [address] from Last 3 Months Additional Health Concerns Infection Onset Date Last Indicated CRE 01/20/2021 01/20/2021 Insurance [facility] [place] [place] [facility] [place] Advance Directives For more information, please contact: [phone] Documents on File Type Date Recorded 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
--- OUTSIDE RECORDS SUMMARY | 2025-08-03 00:04 | XMS_ITS | Encounter Summary ---
Author Organization [facility] Address [address] [place] [address] Care Team Providers Care End Packer Name Role Phone Kameron Davila MD Primary Care Provider [phone] Encounter Details Date Type Department Care Team (Latest Contact Info) Description 01/14/2012 Historical Office Visit [facility] Family Medicine [address] [place] [address] Zan Rivas MD Other general medical examination for administrative purposes Social History Tobacco Use Types Packs/Day Years Used Date Smoking Tobacco: Never Assessed Comments Unknown Sex and Gender Information Value Date Recorded Sex Assigned at Not on file 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 Gender Identity Female 12/28/2020 10:43 PM CDT Sexual Orientation Straight 12/28/2020 10 :43 PM CDT documented as of this encounter Last Filed Vital Signs Vital Sign Reading Time Taken Comments Blood Pressure 100/80 01/14/2012 1:58 PM CDT Pulse 84 01/14/2012 1:58 PM CDT Temperature 36.6 C (97.8 F) 01/14/2012 1:58 PM CDT Respiratory Rate - - Oxygen Saturation - - Inhaled Oxygen Concentration - - Weight 26.8 kg (59 lb) 01/14/2012 1:58 PM CDT Height 128.3 cm (4' 2.5) 01/14/2012 1:58 PM CDT Body Mass Index 16.27 01/14/2012 1:58 PM CDT Body Mass Index Percentile 29.19% 01/14/2012 1:5 8 PM CDT Growth Chart: CDC (Girls, 2- 20 Years) documented in this encounter Progress Notes * Zan Rivas MD - 01/14/2012 1:58 PM CDT Nursing Chief Complaint/Reason For Encounter School Px Intake Note 6 grade Subjective Allergies NEOSPORIN: Rash; SHELLFISH Past Med/Surg History Procedures * 1. Initial Pt. Ed Learning Preference (2); Last Performed: 02/13/2008 Health Maintenance Procedures * 1. Initial Pt. Ed Learning Preference (2); Last Performed: 02/13/2008 Health Maintenance Immunizations DTaP vacc (5 dose); Dates: 02/10/2001; 04/24/2001; 06/09/2001; 2002; 12/09/2005 Flu vacc, Nasal (Mist); Dates: 08/06/2008 Flu vacc, split >=3yrs, IM, preserv free; Dates: 08/20/2010 Hep B vacc, adult, IM; Dates: 01/11/2001; 02/10/2001; 12/08/2001 HIB vacc, HbOC (4 dose); Dates: 04/24/2001; 06/09/2001; 09/07/2001; 12/08/2001 IPV (Poliovirus, IPV, SC) (4 dose); Dates: 02/10/2001; 04/24/2001; 12/08/2001; 12/09/2005 MMR vacc (2 dose); Dates: 02/09/2002; 12/09/2005 Varicella vacc, SC; Dates: 03/08/2002 Med List last modified Jan 14 2012 Reviewed: Jan 14 2012 albuterol sulfate 2.5 mg/3 mL (0.083 %) Neb Solution, 1 vial per nebulizer given in office today, 3ml taking triamcinolone acetonide 0.1 % Ointment, Apply to affected area(s) 2 times per day, 30 gm(s) taking Vanicream Topical, Apply to affected area tid, 360 gm(s) taking Ventolin HFA 90 mcg/Actuation Aerosol Inhaler, 1 puff by mouth up to 3 times a day as needed for shortness of breath, 18 gm(s) taking Preferred [facility]acy [facility] ([place] [[place], [address]] Family History last modified Jan 03 2011 Positive Family History for: Asthma Bipolar disorder Breast cancer Depressive disorder Diabetes mellitus Hyperlipidemia Lung cancer Migraine Thyroid disorder Social History last modified Mar 09 2011 Tobacco Never smoked; Tobacco reviewed with patient 08/04/2011 Alcohol Use Non-drinker Caffeine Use No caffeine use Drug Misuse No reported history Home Safety Risk No significant home safety risk factors; Seat belt worn consistently; Smoke detectors in home; Child safety seat use; Knows how to swim Personal: Ethnicity: Not ; Race: White/; Primary language: MALAGASY; Maritalstatus: Single; Employer: NONE Objective Vital Signs Temp: 97.8??F (Skin) [36.6??C] HR: 84 bpm Blood Pressure: 100/80 mmHg (L arm sitting Child cuff) Height: 50.5 in [128.27 cm](1.2 percentile) Weight:59 lbs [26.762 kg ](2.6 percentile) BMI: 16.3 (29.7 percentile) SBP%: 50.8 DBP%: 96.6 BSA: 0.981 Pain Scale: 0/10 (Numeric) Date/Time: Jan 14 2012 13:58 Assessment Assessments ASTHMA, UNSPECIFIED (ICD-9 billing code: 493.90) Asthma (ICD-9 billing code: 493.90) Billing Detail Medication Management: New/current prescription meds S: Here for school physical. She is doing quite better using nebulizer once a day. Recent bronchospasm episode. Resolved URI symptoms. Here with her mother and maternal grandmother no other real complaints. O:General: Pleasant, articulate individual. No acute distress. HEENT: No scleral icterus no injection. No visual complaint. Wears glasses. Eyelids without sign ofinfection or abnormality. TMs clear bilaterally. Nasal passage patent. Oropharynx pink and moist without masses. No lymphadenopathy in the head and neck. No thyromegaly. No bruit. CVS: Regular rate and rhythm, without murmur, S1 and S2 heard. No S3. No rub. No gallop. Respiratory: Clear to auscultation without rales, wheezes, or crackles. GI: Abdomen: Soft, nontender. Bowels sounds are positive without any masses. Neuro: No obvious motor and sensory deficits. Cranial nerves II-X grossly intact. Skin: Without any rash or petechiae no herpes zoster no infection or cellulitis. A: Resolving bronchospasm. School physical. Form completed P: I recommended if she is having respiratory distress to seek attention. Recommended using nebulizer once a day for the next week or so watching for her respiratory status. Routine school. Information was given. Dental, car seat belt safety. DX: None TX: Please see medication list ED: Respiratory distress to seek medical attention. Patient's mom and maternal grandmother was present today and verbalized understanding. The above plan. Zan Rivas M.D. Plan Prescription Orders Rx Cart - Jan 14 2012 14:49 albuterol sulfate 2.5 mg/3 mL (0.083 %) Neb Solution, Inhale via nebulizer as directed, dispense 30(3cc vials) at a time , 3 ml, 2 refills (Asthma; Asthma, unspecified) Cart Status: Submitted Route: Phone Rx Cart Order Notes: Phone prescriptions to [facility] phone: fax: [phone]: Patient Education Information: Written and verbal information given to patient. Patient receptive and voiced understanding. No review needed. Contributors to this Visit Note Documenting Clinician: Leti ROJAS - Staff Type: NONE Time: Jan 14 2012 13:58 Action: Amber ROJAS - Staff Type: NONE Time: Jan 14 2012 13:59 Action: Crista RIVAS - Staff Type: Physician Time: Jan 15 2012 18:55 Action: Crista RIVAS - Staff Type: Physician Time: Jan 15 2012 18:55 Action: Sign documented in this encounter Plan of Treatment Not on file documented as of this encounter Visit Diagnoses Diagnosis Other general medical examination for administrative purposes documented in this encounter Care Teams End Packer Relationship Specialty Start Date End Date Kameron Davila MD PCP - General Family Medicine 03/27/14 documented as of this encounter
--- OUTSIDE RECORDS SUMMARY | 2025-08-03 00:04 | XMS_ITS | Encounter Summary ---
Author Organization Narrative Address [address] [place] [address] Care Team Providers Care Data Collection Specialist Name Role Phone Kameron Davila MD Primary Care Provider [phone] Encounter Details Date Type Department Care Team (Late st Contact Info) Description 06/09/2012 Historical Office Visit [facility] [place] [address] [place] [address] Orin Angelo, PAPatriciaC [address] [place] [address] Allergic rhinitis, cause unspecified; Acute conjunctivitis, unspecified Social History Tobacco Use Types Packs/Day Years Used Date Smoking Tobacco: Never Assessed Comments Unknown Sex and Gender Information Value Date Recorded Sex Assigned at Not on file 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 Gender Identity Female 12/28/2020 10:43 PM CDT Sexual Orientation Straight 12/28/2020 10 :43 PM CDT documented as of this encounter Last Filed Vital Signs Vital Sign Reading Time Taken Comments Blood Pressure 102/70 06/09/2012 8:14 AM CDT Pulse 106 06/09/2012 8:14 AM CDT Temperature 36.3 C (97.4 F) 06/09/2012 8:14 AM CDT Respiratory Rate 22 06/09/2012 8:14 AM CDT Oxygen Saturation - - Inhaled Oxygen Concentration - - Weight 27.7 kg (61 lb 2 oz) 06/09/2012 8:14 AM C DT Height 132.7 cm (4' 4.25) 06/09/2012 8:14 AM CD T Body Mass Index 15.74 06/09/2012 8:14 AM CDT Body Mass Index Percentile 17.51% 06/09/2012 8:1 4 AM CDT Growth Chart: CDC (Girls, 2- 20 Years) documented in this encounter Progress Notes * Orin Angelo PA-C - 06/09/2012 8:05 AM CDT Nursing Chief Complaint/Reason For Encounter POSS PINK EYE Intake Note PT PRESENTS AMBULATORY, SNELLEN CHART WITH GLASSES RIGHT EYE 20/40, LEFT EYE 20/40. C/O SINCE 06/08/12 OF BILATERAL EYE REDNESS/ITCHING/PAIN/MATTING.: Patient has a primary care provider, Mode of arrival Walk, Name of PCP: DR BROWN : Pulse oximetry 98% ON RA , Time of arrival 0805 Subjective HPI Maritza is an 11-year-old female who presents here today with her father with complaints of a possible pinkeye bilateral eyes. Father states since yesterday morning she has had bilateral eye redness, purulent drainage to the eyes and bilateral eyes have been matted shut in the mornings. Father states that she has allergies and states that she has had bilateral eye redness and itching before, but states that she has never had purulent drainage with matting. She denies any foreign body feeling in the eyes and a denies any pain to the bilateral eyes or visual disturbances. She does wear glasses and contacts. She is on Nasonex, Claritin and Zyrtec for allergies. Denies any injury or trauma. Allergies Reviewed: Jun 09 2012 NEOSPORIN: Rash; SHELLFISH Past Med/Surg History Procedures [...] MMR vacc (2 dose); Dates: 02/09/2002; 12/09/2005 Tdap Vaccine (11-18 y/o or >=11y/o)*; Dates: 05/24/2012 Varicella vacc, SC; Dates: 03/08/2002 Med List last modified Jun 09 2012 Reviewed: Jun 09 2012 Children's Claritin 5 mg Chewable Tab, 1 cap(s) by mouth daily taking (TAKE IN AM) Nasonex 50 mcg/actuation Diagonal, 1 spray(s) each nostril daily taking triamcinolone acetonide 0.1 % Ointment, Apply to affected area(s) 2 times per day, 30 gm(s) taking Vanicream Topical, Apply to affected area tid, 360 gm(s) taking Ventolin HFA 90 mcg/Actuation Aerosol Inhaler, 1 puff by mouth up to 3 times a day as needed for shortness of breath, 18 gm(s) taking Zyrtec 10 mg Chewable Tab, 1 tab(s) by mouth before bedtime taking discontinued Preferred Pharmacy [place] ([place]) [[place], [address] [place] [address]] Family History last modified Jan 03 2011 Positive Family History for: Asthma Bipolar disorder Breast cancer Depressive disorder Diabetes mellitus Hyperlipidemia Lung cancer Migraine Thyroid disorder Social History last modified Jun 09 2012 Tobacco Never smoked; Never used smokeless; Tobacco reviewed with patient 06/09/2012 Alcohol Use Non-drinker Caffeine Use No caffeine use Drug Misuse No reported history Home Safety Risk No significant home safety risk factors; Seat belt worn consistently; Smoke detectors in home; Child safety seat use; Knows how to swim Personal: Ethnicity: Not ; Race: WHITE; Primary language: DOMINICAN; Marital status: Single; Employer: NONE Review of systems Constitutional: No fever, No chills, No fatigue Eyes (R,L): No eye pain, No reduced visual acuity, Eye discharge, Eye itching ENT and Mouth: No ear pain, Rhinorrhea, Nasal discharge, No throat pain Cardiovascular: No chest pain, No palpitations, No orthopnea, No paroxysmal nocturnal dyspnea Respiratory: No cough, No wheezing, No dyspnea, No Purulent sputum Gastrointestinal: No nausea, No vomiting, No abdominal pain, No diarrhea Integumentary: No rash Neurologic: No headaches Objective Vital Signs Temp: *97.4 ??F (Other) [36.4??C] HR: 106 bpm RR: 22 Blood Pressure: 102/70 mmHg (L arm sitting Adult-std cuff) Height: 52.25 in [132.715 cm](2.3 percentile) Weight:61 lb 2 oz lbs [27.726 kg ](2.3 percentile) BMI: 15.7 (16.9 percentile) SBP%: 57.0 DBP%: 81.9 BSA: 1.02 Pain Scale: 7/10 (Numeric) Location: EYES Frequency: Constant Significant to Visit: Yes Date/Time: Jun 09 2012 08:14 Physical Exam Constitutional: Well groomed, Alert, No acute distress, Body habitus normal (General appearance), Well nourished Alert & oriented x3. No distress or discomfort. Appears well, does not appear ill or septic. Nontoxic. Afebrile. Well-hydrated Eyes (R,L): Pupils equal and reactiive to light, Conjunctiva abnormal, Eyelid normal, Extraoccular movement (III, IV, ) normal, Eye discharge Bilateral eyes: Conjunctiva erythematous and injected, purulent drainage noted in the corners of the eye with a purulent film over the front of the eye. No evidence of any trauma and no blood to the anterior chambers bilaterally. Eyelids normal without any redness or swelling. Bilateral eyes were stained with fluorescein and viewed under a blue light, no foreign bodies are present and no evidenceof any corneal abrasions. Dry crusted purulent drainage noted in the upper and a lower eyelashes the bilateral eyes. EOMs intact. PERRLA ENT and Mouth Ears (R,L): Tympanic membrane normal, Tympanic membrane not bulging, Tympanic membrane not injected, Ear canal normal, External ear normal Nose and Sinus: Nasal mus[place] boggy, Nasal mucosa erythematous, No tenderness over frontal sinus, No tenderness over maxillary sinus Clear drainage noted in the nasal passages Mouth and Throat: Oropharynx abnormalities, No exudate on tonsils, Pharynx not injected Oropharynx is erythmatous with evidence of post-nasal drainage and cobblestoning. No exudates present. Uvual mildine, no abscess formation noted. Neck Lymphatic (R,L): No anterior cervical lymphadenopathy, No anterior cervical lymph node tenderness, No posterior cervical lymphadenopathy, No posterior cervical lymph node tenderness Cardiovascular: Heart rate normal, Heart rhythm normal, Heart sounds normal, Heart murmur none Respiratory: Shape and symmetry of chest normal, Respiratory effort normal, Breath sounds normal, Breath sounds clear to auscultation, No rales, No rhonchi, No wheezing 02 stats 98% on room air Assessment Assessments Allergic rhinitis (ICD-9 billing code: 477.9) Conjunctivitis - Bilateral (ICD-9 billing code: 372.30) Billing Detail Medication Management: New/current prescription meds Plan Patient Education: Instructions given on antibiotic usage and side effects, Instructed on use of anti-inflammatory and anti-pyretics, Education on antihistamines and/or cold medicines, Pt instructed to rest and push fluids, Patient Education Information: Verbal information given to patient. Patient receptive and voiced understanding. No review needed., Patient education Warm compresses to the bialteral eyes and avoid rubbing at the eyes. Hand washing frequently, as pink eye contagious. Follow-up with eye doctor or PCP if symptoms persisting or worsening. Prescription Orders Rx Cart - Jun 09 2012 08:37 trimethoprim-polymyxin B 0.1 %-10,000 unit/mL Eye Drops, 1-2 drops to the affected eye(s) four times per day , 10 ml(s), No refills Cart Status: Submitted Route: Electronic Rx Cart Order Notes: SLOAN prescriptions to [place], [place] ([place]) [place] [id number] phone: [phone] fax: Message for Pharmacy: - Follow up: Instructed patient to return within 24 to 48 hours if symptoms worsen or to follow up with primary care physician if sympoms not improved within 1 to 2 weeks Contributors to this Visit Note Documenting Clinician: Conrad TO - Staff Type: NONE Time: Jun 09 2012 08:05 Action: Amber TO - Staff Type: NONE Time: Jun 09 2012 08:18 Action: Crista ANGELO - Staff Type: Physician Visual Training Aide Time: Jun 09 2012 08:54 Action: Crista ANGELO - Staff Type: Physician Visual Training Aide Time: Jun 09 2012 08:54 Action: Sign documented in this encounter Plan of Treatment Not on file documented as of this encounter Visit Diagnoses Diagnosis Allergic rhinitis, cause unspecified Acute conjunctivitis, unspecified documented in this encounter Care Teams Data Collection Specialist Relationship Specialty Start Date End Date Kameron Davila MD PCP - General Family Medicine 03/27/14 documented as of this encounter
--- OUTSIDE RECORDS SUMMARY | 2025-08-03 00:04 | XMS_ITS | Encounter Summary ---
Author Organization [employer] Address [address] [place] [address] Care Team Providers Care Taxi Driver Supervisor Name Role Phone Kameron Davila MD Primary Care Provider [phone] Encounter Details Date Type Department Care Team (Late st Contact Info) Description 07/30/2012 Historical Office Visit [employer] [facility] [place] [address] [place] [address] Orin Angelo, PAPatriciaC [address] [place] [address] Acute upper respiratory infections of unspecified site; Cough; Acute bronchitis Social History Tobacco Use Types Packs/Day Years Used Date Smoking Tobacco: Never Assessed Comments Unknown Sex and Gender Information Value Date Recorded Sex Assigned at Not on file 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 Gender Identity Female 12/28/2020 10:43 PM CDT Sexual Orientation Straight 12/28/2020 10 :43 PM CDT documented as of this encounter Last Filed Vital Signs Vital Sign Reading Time Taken Comments Blood Pressure 92/68 07/30/2012 12:15 PM CDT Pulse 151 07/30/2012 12:15 PM CDT Temperature 36.9 C (98.4 F) 07/30/2012 12:15 PM CDT Respiratory Rate - - Oxygen Saturation - - Inhaled Oxygen Concentration - - Weight 28.3 kg (62 lb 6 oz) 07/30/2012 12:15 PM CDT Height 134.6 cm (4' 5) 07/30/2012 12:15 PM CDT Body Mass Index 15.61 07/30/2012 12:15 PM CDT Body Mass Index Percentile 14.77% 07/30/2012 12: 15 PM CDT Growth Chart: CDC (Girls, 2- 20 Years) documented in this encounter Progress Notes * Orin Angelo PA-C - 07/30/2012 12:05 PM CDT Nursing Chief Complaint/Reason For Encounter RATTLING SOUND IN CHEST Intake Note FEVER,HEADACHE,PRODUCTIVE COUGH AND SORE THROAT FOR 4-5 DAYS: Patient has a primary care provider, Mode of arrival Walk, Name of PCP: KEVIN: Pulse oximetry 98: Time of arrival 1200 Subjective HPI Maritza is a 11 yo female who presents here today with her father with complaints of non-productive cough, sore throat only when coughing, nasal congestion and headaches x 5 days. She does have a history of asthma and states that she was running last evening outside and became a little SOB. She used her Albuterol inhaler and SOB resolved. Denies any SOB or difficulties breathing currently. Intially was running fevers but has had no fevers x 5 days. Denies chills, nausea, vomiting or diarrhea.Denies any abdominal pain or discomfort. Has albuterol inhaler at home and Albuterol Neb treatments. No treatments yet today. History of seasonal allergies. Allergies Reviewed: Jul 30 2012 NEOSPORIN: Rash; SHELLFISH Past Med/Surg History [...] [place]; Dates: 03/08/2002 Med List last modified Jul 30 2012 Reviewed: Jul 30 2012 Children's Claritin 5 mg Chewable Tab, 1 cap(s) by mouth daily taking Nasonex 50 mcg/actuation [place], 1 spray(s) each nostril daily taking Vanicream Topical, Apply to affected area tid, 360 gm(s) taking Ventolin HFA 90 mcg/Actuation Aerosol Inhaler, 1 puff by mouth up to 3 times a day as needed for shortness of breath, 18 gm(s) taking Zyrtec 10 mg Chewable Tab, 1 tab(s) by mouth before bedtime taking discontinued discontinued Preferred Pharmacy [facility] [[place], [address] [place] [address]] Family History last modified Jan 03 2011 Reviewed: Jul 30 2012 Positive Family History for: Asthma Bipolar disorder Breast cancer Depressive disorder Diabetes mellitus Hyperlipidemia Lung cancer Migraine Thyroid disorder Social History last modified Jun 09 2012 Reviewed: Jul 30 2012 Tobacco Never smoked; Never used smokeless; Tobacco reviewed with patient 07/30/2012 Alcohol Use Non-drinker Caffeine Use No caffeine use Drug Misuse No reported history Home Safety Risk No significant home safety risk factors; Seat belt worn consistently; Smoke detectors in home; Child safety seat use; Knows how to swim Personal: Ethnicity: Not ; Race: WHITE; Primary language: SWEDISH; Marital status: Single; Employer: NONE Review of systems Constitutional: Fever, No chills, No fatigue Fevers initially but have resolved. No fever x 5 days ENT and Mouth: No ear pain, Rhinorrhea, Nasal discharge, No throat pain Respiratory: Cough, No wheezing, No dyspnea, No Purulent sputum Non-productive cough. Denies SOB, wheezing or difficulties breathing currently. Lymphatic and Hematology: No lymph node tenderness, No lymph node swelling Gastrointestinal: No nausea, No vomiting, No abdominal pain, No diarrhea Integumentary: No pruritus, No rash, No Skin lesions, No vesicles and blisters, No Cyanosis of skin Neurologic: Headaches Intermittent headches relieved by Tylenol Objective Vital Signs Temp: 98.4??F (Oral) [36.9??C] HR: 151 bpm Blood Pressure: 92/68 mmHg (L arm sitting Adult-std cuff) Height: 53 in [134.62 cm](3.1 percentile) Weight:62 lb 6 oz lbs [28.293 kg ](2.4 percentile) BMI: 15.6 (14.6 percentile) SBP%: 21.0 DBP%: 76.6 BSA: 1.04 Date/Time: Jul 30 2012 12:15 Physical Exam Constitutional: Well groomed, Alert, No acute distress, Body habitus normal (General appearance), Well nourished Alert and oriented x3. No distress or discomfort. No respiratory distress. Appears well, does not appear ill or septic. Nontoxic. Appropriate. Well- hydrated. Afebrile. ENT and Mouth Ears (R,L): Tympanic membrane [...] injected Oropharynx is erythmatous with evidence of moderate post-nasal drainage and mucous/cobblestoning. No tonsillar exudates are present. Uvula midline, no abscess formation noted Neck: Neck symmetrical Lymphatic (R,L): No anterior cervical lymphadenopathy, No anterior cervical lymph node tenderness, No posterior cervical lymphadenopathy, No posterior cervical lymph node tenderness No meningeal signs and no nuchal rigidity present Cardiovascular: Heart rate normal, Heart rhythm normal, Heart sounds normal, Heart murmur none Respiratory: Shape and symmetry of chest normal, Respiratory effort normal Course breath sounds noted throughout the lung lima. No decreased breath sounds and no consolidation. No respiratory distress. No retractions or stridor present. No rales/crackles or wheezing present Integumentary: Skin warm and dry, Skin color normal Assessment Assessments Acute bronchospasm (ICD-9 billing code: 519.11) Cough (ICD-9 billing code: 786.2) Upper respiratory infection (URI) (ICD-9 billing code: 465.9) Billing Detail Medication Management: New/current prescription meds Plan Patient Education: Instructions given on antibiotic usage and side effects, Instructed on use of anti-inflammatory and anti-pyretics, Education on antihistamines and/or cold medicines, Pt instructed to rest and push fluids, Patient Education Information: Verbal information given to patient. Patient receptive and voiced understanding. No review needed., Patient education Instructed to take abx as prescribed and to complete full course. Instructed to use Albuterol Neb treatments every 6 hours forthe next 2-3 days. Use albuterol inhaler as needed. Continue chronic medications as directed for allergies. Tylenol/Ibuprofen as needed. Follow-up with PCP if symptoms worsen or do not resolve or improve. Father voiced understanding. Prescription Orders Rx Cart - Jul 30 2012 12:46 azithromycin 200 mg/5 mL Oral Susp, Take 1.5 teaspoons by mouth on day 1 then 3/4 teaspoon by mouthdays 2-5, 5 day(s), No refills Cart Status: Submitted Route: Electronic Rx Cart Order Notes: [facility] prescriptions to [place], [place] ([facility]) UTPDP ID [id number] phone: [phone] fax: Message for Pharmacy: - Follow up: Instructed patient to return within 24 to 48 hours if symptoms worsen or to follow up with primary care physician if sympoms not improved within 1 to 2 weeks Contributors to this Visit Note Documenting Clinician: Conrad GREGORIO - Staff Type: Administrative Staff Time: Jul 30 2012 12:05 Action: Amber GREGORIO - Staff Type: Administrative Staff Time: Jul 30 2012 12:17 Action: Edsusy ANGELO - Staff Type: PAC Time: Jul 30 2012 15:15 Action: Edsusy ANGELO - Staff Type: PAC Time: Jul 30 2012 15:15 Action: Sign documented in this encounter Plan of Treatment Not on file documented as of this encounter Visit Diagnoses Diagnosis Acute upper respiratory infections of unspecified site Cough Acute bronchitis documented in this encounter Care Teams Taxi Driver Supervisor Relationship Specialty Start Date End Date Kameron Davila MD PCP - General Family Medicine 03/27/14 documented as of this encounter
--- OUTSIDE RECORDS SUMMARY | 2025-08-03 00:04 | XMS_ITS | Encounter Summary ---
Author Organization [facility] Address [address] [place] [place] [address] Phone Care Team Providers Care Wringer And Setter Name Role Phone Kameron Davila MD Primary Care Provider Encounter Details Date Type Department Care Team (Late st Contact Info) Description 08/25/2022 [facility] [address] [place] [address] Duran Donnelly MD [address] [facility] [address] [place] [phone] Chronic kidney disease, stage 2 (mild); Von Willebrand's disease (HCC); Cyst of kidney, acquired Social History Tobacco Use Types Packs/Day Years Used Date Smoking Tobacco: Never Assessed Comments Unknown Sex and Gender Information Value Date Recorded Sex Assigned at Not on file 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 No / Unsure 08/25/2022 8:19 AM FIRST MATE documented as of this encounter Plan of Treatment Not on file documented as of this encounter Procedures Procedure Name Priority Date/Time Associated Diagnosis Comments CBC WITH AUTO DIFFERENTIAL Routine 08/25/2022 8:28 AM FIRST MATE Chronic kidney disease, stage 2 (mild) Von Willebrand's disease Cyst of kidney, acquired UR PROTEIN/CREATININE RATIO Routine 08/25/2022 8:28 AM FIRST MATE Chronic kidney disease, stage 2 (mild) Von Willebrand's disease Cyst of kidney, acquired RENAL FUNCTION PANEL (RFP) Routine 08/25/2022 8:28 AM FIRST MATE Chronic kidney disease, stage 2 (mild) Von Willebrand's disease Cyst of kidney, acquired MAGNESIUM (MG) Routine 08/25/2022 8:28 AM FIRST MATE Chronic kidney disease, stage 2 (mild) Von Willebrand's disease Cyst of kidney, acquired COMPLETE BLOOD COUNT (CBC) WITH DIFF Routine 08/25/2022 8:28 AM FIRST MATE Chronic kidney disease, stage 2 (mild) Von Willebrand's disease Cyst of kidney, acquired documented in this encounter Results * (ABNORMAL) CBC WITH AUTO DIFFERENTIAL (08/25/2022 8:28 AM FIRST MATE) WBC 7.55 4.00 - 12.00 10(3)/mcL 08/25/2022 2:13 PM [facility] RBC 4.40 3.80 - 5.30 10(6)/mcL 08/25/2022 2:13 PM [facility] HEMOGLOBIN (HGB) 12.6 12.0 - 15.8 g/dL 08/25/2022 2:13 PM [facility] HEMATOCRIT (HCT) 38.5 36.0 - 47.0 % 08/25/2022 2:13 PM [facility] MCV 87.5 82.0 - 96.0 fL 08/25/2022 2:13 PM [facility] MCH 28.6 26.0 - 34.0 pg 08/25/2022 2:13 PM [facility] MCHC 32.7 31.0 - 36.0 g/dL 08/25/2022 2:13 PM [facility] PLATELET COUNT 447(H) 140 - 440 10(3)/[facility] 08/25/2022 2:13 PM [facility] RDW 14.0 11.8 - 15.5 % 08/25/2022 2:13 PM [facility] MPV 9.8 9.7 - 12.4 fL 08/25/2022 2:13 PM [facility] NEUTROPHILS 47.1 47.0 - 73.0 % 08/25/2022 2:13 PM [facility] LYMPHOCYTES 43.3(H) 18.0 - 42.0 % 08/25/2022 2:13 PM [facility] MONOCYTES 6.5 4.0 - 12.0 % 08/25/2022 2:13 PM [facility] EOSINOPHILS 2.6 0.0 - 5.0 % 08/25/2022 2:13 PM [facility] BASOPHILS 0.5 0.0 - 1.0 % 08/25/2022 2:13 PM [facility] ABSOLUTE NEUTROPHILS 3.55 1.60 - 7.70 10(3)/[facility] 08/25/2022 2:13 PM [facility] ABSOLUTE LYMPHOCYTES 3.27(H) 1.30 - 3.20 10(3)/[facility] 08/25/2022 2:13 PM [facility] ABSOLUTE MONOCYTES 0.49 0.20 - 1.00 10(3)/[facility] 08/25/2022 2:13 PM [facility] ABSOLUTE EOSINOPHIL 0.20 0.00 - 0.40 10(3)/[facility] 08/25/2022 2:13 PM [facility] ABSOLUTE BASOPHILS 0.04 0.00 - 0.10 10(3)/[facility] 08/25/2022 2:13 PM [facility] NRBC PER 100 WBC 0 08/25/20 2:13 PM [facility] Blood 08/25/2022 8:28 AM FIRST MATE 08/25/2022 1:24 PM FIRST MATE us Duran Donnelly MD HEMATOLOGY ORDERABLES Beatris l Result Performing Organization Address [facility] Co de Phone Number [facility] [address] [place] [address], [place] * UR PROTEIN/CREATININE RATIO (08/25/2022 8:28 AM FIRST MATE) UR PROTEIN RAND, QT 9.3 mg/dL 08/25/2022 2:49 PM FIRST MATE [facility] Comment:No reference range h as been established. Consider Clinical Correlation. URINE CREATININE 179.8 mg/dL 08/25/2022 2:49 PM FIRST MATE [facility] Comment:No reference range h as been established. Consider Clinical Correlation. URINE PROTEIN/CREATIN INE RATIO 0.05 <0.25 08/25/2022 2:49 PM FIRST MATE [facility] Urine 08/25/2022 8:28 AM FIRST MATE 08/25/2022 1:24 PM FIRST MATE Duran Donnelly MD URINE ORDERABLES Final Res ult Performing Organization Address [facility] Co de Phone Number [facility] [address] [place] [address], [place] * (ABNORMAL) RENAL FUNCTION PANEL (RFP) (08/25/2022 8:28 AM FIRST MATE) SODIUM 139 136 - 145 mmol/L 08/25/2022 2:41 PM FIRST MATE [facility] POTASSIUM 4.3 3.5 - 5.1 mmol/L 08/25/2022 2:41 PM FIRST MATE [facility] CHLORIDE 105 98 - 107 mmol/L 08/25/2022 2:41 PM FIRST MATE [facility] CO2, VENOUS 26 22 - 30 mmol/L 08/25/2022 2:41 PM FIRST MATE [facility] ANION GAP 8.0 <18.0 mmol/L 08/25/2022 2:41 PM FIRST MATE [facility] GLUCOSE 83 70 - 99 mg/dL 08/25/2022 2:41 PM [facility] BUN 14 5 - 18 mg/dL 08/25/2022 2:41 PM [facility] CREATININE, BLOOD 0.58(L) 0.60 - 1.00 mg/dL 08/25/2022 2:41 PM [facility] BUN/CREATININE RATIO 24(H) 12 - 20 ratio 08/25/2022 2:41 PM [facility] ALBUMIN 4.8 3.5 - 5.0 g/dL 08/25/2022 2:41 PM [facility] CALCIUM 9.5 8.7 - 10.5 mg/dL 08/25/2022 2:41 PM [facility] PHOSPHORUS 3.9 2.5 - 4.5 mg/dL 08/25/2022 2:41 PM [facility] GFR, ESTIMATED >60 >=60 08/25/2022 2:41 PM [facility] Comment: Creatinine Clearance is the preferred criteria for selecting drug dose adjustments in renally impaired patients. The GFR is provided as additional pertinent clinical information. GFR is reported in mL/min/1.73 sq m. Calculation based on the Chronic Kidney Disease Epidemiology Collaboration (CKD- EPI) equation refit without adjustment for race. GFR, EST. >60 >=60 022 2:41 PM [facility] GFR, EST. NONAFRICAN >60 >=60 08/25/2022 2:41 PM [facility] Blood 08/25/2022 8:28 AM FIRST MATE 08/25/2022 1:24 PM FIRST MATE us Duran Donnelly MD CHEMISTRY ORDERABLES Final Result [facility] [address] [place] [address], * MAGNESIUM (MG) (08/25/2022 8:28 AM FIRST MATE) MAGNESIUM 2.2 1.6 - 2.6 mg/dL 08/25/2022 2:41 PM [facility] Blood 08/25/2022 8:2 8 AM FIRST MATE 08/25/2022 1:24 PM FIRST MATE us Duran Donnelly MD CHEMISTRY ORDERABLES Final Result [facility] [address] [place] [address], documented in this encounter Visit Diagnoses Diagnosis Chronic kidney disease, stage 2 (mild) Von Willebrand's disease Cyst of kidney, acquired Acquired cyst of kidney documented in this encounter Additional Health Concerns Infection Onset Date Last Indicated Resolved Time COVID - 19 08/28/2023 08/28/2023 09/07/2023 12:1 6 AM FIRST MATE documented as of this encounter Care Teams Wringer And Setter Relationship Specialty Start Date End Date Kameron Davila MD PCP - General Sports Medicine 12/22/17 documented as of this encounter
--- OUTSIDE RECORDS SUMMARY | 2025-08-03 00:04 | XMS_ITS | Clinical Summary ---
Author Organization [facility] Address [address] [place] [address] Care Team Providers Care Head Chopper Name Role Phone Boby Davila MD Primary Care Provider [phone] Source Comments This disclosure is being made pursuant to the [employer] program and maynot contain all information available regarding this patient.[facility] Allergies Active Allergy Reactions Criticality Noted Date Comments Covid-19 (Mrna) Vaccine Other (See Comments) Medium 11/25/2021 Chest pian and SOB Latex Rash Low 01/27/2021 Neomycin-Bacitracin Zn-Polymyx Rash Low 03/27/2014 Shellfish Protein-Containing Drug Products Anaphylaxis High 03/27/2014 Medications albuterol (PROVENTIL) (2.5 MG/3ML) 0.083% nebulizer solution Take 3 mLs by nebulization every 4 (four) hours as needed. 2 7 Active cetirizine (ZYRTEC) 10 MG tablet Take 1 (one) tablet by mouth every evening. Active etonogestrel (IMPLANON/NEXPL ANON) 68 MG IMPL subdermal implant 1 each by Subdermal route every three (3) years. Active SUMAtriptan succinate (IMITREX) 50 MG tabletIndicatio ns:Migraine without aura and without status migrainosus, not intractable Take 1 tablet by mouth as needed for Migraine. 10 tablet 11 0 Active ALPRAZolam (XANAX) 0.5 MG tablet Take 1 tablet by mouth 3 (three) times daily as needed for Anxiety. 45 tablet 1 Active EpiPen 2-Bruno 0.3 MG/0.3ML SOAJ injectionIndica tions:Allergy, subsequent encounter Inject 0.3 mLs into the muscle once as needed. 1 each 3 2 Active tranexamic acid (LYSTEDA) 650 MG TABS tablet Take 1 (one) tablet by mouth as needed. 2 Active lamoTRIgine Starter Kit-[place] 42 x 25 MG & 7 x 100 MG KIT 25mg oral daily X 2 weeks, 50mg oral daily X 2 weeks, 100mg oral dialy X 1 week. 1 kit 2 Active albuterol 108 (90 Base) MCG/ACT inhaler Inhale 2 (two) puffs into the lungs every 4 (four) hours as needed for Wheezing. 1 each 3 3 Active HYDROcodone-shoshana taminophen (NORCO) 5-325 MG per tablet Take 1 (one) tablet by mouth every 8 (eight) hours as needed for Pain. 6 tablet 3 Active sertraline (ZOLOFT) 25 MG tablet Take 25 mg by mouth daily. 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 Soraida MARIE ASST Dermatitis 08/04/2011 Overview (03/27/2014): Overview: VITO BROWN MD Asthma 10/28/2010 Overview (03/27/2014): Overview: MICHELLE MENDIETA ASST Resolved Problems Problem Noted Date Diagnosed Date Resolved Date Wrist pain, right 12/25/2014 02/25/2015 Wrist sprain 11/22/2014 11/25/2014 Abdominal pain 10/18/2013 04/26/2014 Overview (03/27/2014): Overview: ODETTE ALLEN MD Intestinal infection 10/18/2013 014 Overview (03/27/2014): Overview: ODETTE ALLEN MD Encounters for administrative purpose 07/30/2013 04/26/2014 Overview (03/27/2014): Overview: RA CK VITO BROWN MD Acute bronchospasm 07/30/2012 4 Overview (03/27/2014): Overview: VITO BROWN MD Cough 07/30/2012 04/26/2014 Overview (03/27/2014): Overview: VITO BROWN MD Encounter for counseling 08/20/2010 Overview (03/27/2014): Overview: VITO BROWN MD Allergic rhinitis 02/13/2008 04/26/2014 Overview (03/27/2014): Overview: VITO BROWN MD Asthma with exacerbation 02/16/2007 Overview (03/27/2014): Overview: VITO BROWN MD Immunizations Immunization Administration Dates Next Due COVID-19 (MODERNA) mRNA ages 12+ 11/06/2021,1205/2021 DTaP (Infanrix) DTaP 12/09/2005,12/07/19 03,06/09/2001,04/09,02/10/2001 Haemophilus Influenzae type b (HibTITER) Hib HbOC 12/08/2001,09/07/2001,06/09/2001,04/09 Hepatitis A pediatric 01/17/2017,07/16/2016 Hepatitis B 12/08/2001,02/10/2001,01/11/2001 Human Papillomavirus ([place] 4) HPV4 02/25/2015 04/27/2015 Human Papillomavirus ([place] 9) 9vHPV 07/16/2016,04/20/2016 Influenza Split 08/20/2010 Influenza, Live (FLUMIST) Tr ivalent, Intranasal 08/06/2008 Influenza, inactivated, quad rivalent, 3 years and older, single dose syringe/vial 07/16/2016 07/16/2017 LIVE Meaksqt-Bfpwv-Kdhrgfd ( M-M-R II) MMR 12/09/2005,02/09/2002 LIVE Varicella (Varivax) LINK 03/08/2002 Meningococcal Conjugate (Men actra) MCV4 MenACWY-D 05/15/2018,04/26/2014 PPD Test 12/19/2018,12/12/2018 Polio (Ipol) IPV 12/09/2005, 2,04/24/2001,01/2001 Tdap 05/17/2023,05/24/2012 Family History Medical History Relation Name Comments High cholesterol Father Bipolar disorder Maternal Aunt Depression Maternal Aunt Diabetes Maternal Grandmother Asthma Mother Cancer Mother lung, carcinoid syndrome Depression Mother Migraines Mother Thyroid disease Mother Other Other MAT great grand mother-AML Cancer Paternal Grandmother breast Relation Name Status Comments Father Maternal Aunt Maternal Grandmother Mother Other Paternal Grandmother Social History Tobacco Use Types Packs/Day Years Used Date Smoking Tobacco: Never Smokeless Tobacco: Never Tobacco Cessation:Counseling Given: Not Answered Comments:Vapes socially Alcohol Use Standard Drinks/Week Comments No 0 (1 standard drink = 0.6 oz pure alcohol) Alcoholic Drinks/day: ALCOHOL USE: NON-DRINKER Humiliation, Afraid, Rape, and Kick questionnair e Answer Date Recorded Within the last year, have y ou been afraid of your partner or ex-partner? No 08/06/2022 Within the last year, have y ou been humiliated or emotionally abused in other ways by your partner or ex-partner? No Within the last year, have y ou been kicked, hit, slapped, or otherwise physically hurt by your partner or ex-partner? No 08/06/2022 Within the last year, have y ou been raped or forced to have any kind of sexual activity by your partner or ex-partner? No 08/06/2022 PHQ-2 Answer Date Recorded PHQ-2 Total Score 0 05/26/2023 Comments No Sex and Gender Information Value Date Recorded Sex Assigned at Not on file Legal Sex Female 2:48 PM DEPUTY SHERIFF Gender Identity Female 12/28/2020 10:43 PM CDT Sexual Orientation Straight 12/28/2020 10 :43 PM CDT Occupation Industry Job Start Date Job End Date Not on file Not on file Not on file Not on file Last Filed Vital Signs Vital Sign Reading Time Taken Comments Blood Pressure 110/60 05/26/2023 1:19 PM CDT Pulse 100 05/26/2023 1:19 PM CDT Temperature 37.2 C (98.9 F) 05/26/2023 1:19 PM CDT Respiratory Rate 16 05/16/2023 12:47 AM CDT Oxygen Saturation 99% 05/26/2023 1:19 PM CDT Inhaled Oxygen Concentration - - Weight 39.9 kg (88 lb) 05/26/2023 1:19 PM CDT Height 152.4 cm (5') 05/15/2023 9:27 PM CDT Body Mass Index 17.19 05/15/2023 9:27 PM CDT Plan of Treatment Health Maintenance Due Date Last Done Comments HPV 2000 Lab-Cholesterol Screening 2000 Lab-Hepatitis C Screening 2000 Chlamydia Screening 08/21/2019 08/21/2018 Pneumococcal Vaccines 0-49 yo (1 of 2 - PCV) 2019 Cervical Cancer Screening 2021 Pap Smear 2021 Annual Wellness Visit 08/06/2023 08/06/2022 COVID-19 Vaccine (3 - season) 2025 11/06/2021, 10/06/2021 Influenza Vaccine (#1) 2025 3, 07/16/2016, 08/20/2010, Additional history exists Tetanus/Pertussis Vaccine Teen/Adult (8 - Td or Tdap) 05/17/2033 05/17/2023, 05/24/2012, 12/09/2005, Additional history exists Zoster (Shingles) Vaccine 50+ (1 of 2) 2050 RSV Adult (1 - 1-dose 75+ series) 2075 HIB Vaccine Completed 12/08/2001, 08/11, 06/09/2001, Additional history exists Hepatitis B Vaccine Completed 12/08/2001, 02/10/2001, 01/11/2001 IPV Vaccine Completed 12/09/2005, 0310/2001, 04/24/2001, Additional history exists HPV Vaccine (9-26yo & Shared Decision 27-45yo) Completed 07/16/2016, 04/20/2016, 02/25/2015 Hepatitis A Vaccine Completed 01/17/2017, 6 Meningococcal Conjugate Vaccine Completed 05/15/2018, 04/26/2014 RSV < 20 Months Aged Out No longer el igible based on patient's age to complete this topic Goals Goal Patient Goal Type Associated Problems Recent Progress Patient-Stated? Author High risk sexual behavior, safe sex, control options General Yes Columba Gardner, SUSTAINABLE DESIGN COORDINATOR Note: Assessment of Goals: Readiness to Complete Goal: understands importance and recognizes need to know Barriers: none Reviewed with whom: patient and caregiver To assist in achieving goal, patient was given: counseling, referral to other source and education on reaching goal Return to play protocol General Yes Columba Gardner, SUSTAINABLE DESIGN COORDINATOR Note: Assessment of Goals: Patient and Caregiver understands and recognizes importance to complete goal. Barriers or concerns to completing goal: none To assist in achieving goal, patient will: Review self-management education given related to: Condition specific education: concussion, return to play Adherence to medications as prescribed Medication Cathi Dixon LPN Note: Readiness to Complete Goal: recognizes need to know Barriers: none Reviewed with whom: patient and caregiver To assist in achieving goal, patient was given: patient education related to asthma and her medications. Procedures Procedure Name Priority Date/Time Associated Diagnosis Comments CT/NG BY PCR STAT 08/21/2018 10:25 AM DEPUTY SHERIFF from Last 3 Months or Most Recently Relevant to Health Maintenance Results * CT/NG by PCR (08/21/2018 10:25 AM DEPUTY SHERIFF) Chlamydia DNA by PCR NEG NEG [facility] Comment: ---- Testing is performed using the Aroldo Ava (R) 4800 RT-PCR method. Interfering substances include, but are not limited to the following: Urine specimens stabilized in ava (R) PCR media containing greater than 0.35% (v/v) blood and may give false negative results. Urine specimens stabilized in ava (R) PCR media containing 0.5% or greater bilirubin may give false negative or invalid results. Vaginal swab specimens containing up to 10% (v/v) whole blood exhibited no interference effects. Whole blood levels about 10% (v/v) may give invalid or false negative results. Vaginal swab specimens and urine specimens, all stabilized in ava (R) PCR media and containing greater than 1x105 PBMC cells/mL may give invalid or false results. Detection of C. trachomatis and N. gonorrhoeae is dependent on the number of organisms present in the specimen and may be affected by specimen collection methods, patient factors (i.e. age, history of STD, presence of symptoms), stage of infection and/or infecting C. trachomatis and N. gonorrhoeae strains. The ava (R) CT/NG test should not be used to determine therapeutic success as nucleic acids may be present after antimicrobial therapy. The ava (R) CT/NG test has not been evaluated in patients younger than 14 years of age. The ava (R) CT/NG test is not recommended for evaluation of suspected sexual abuse and for other medico-legal indications. N. gonorrhoeae by PCR NEG NEG [facility] Comment: ---- Testing is performed using the Aroldo Ava (R) 4800 RT-PCR method. Interfering substances include, but are not limited to the following: Urine specimens stabilized in ava (R) PCR media containing greater than 0.35% (v/v) blood and may give false negative results. Urine specimens stabilized in ava (R) PCR media containing 0.5% or greater bilirubin may give false negative or invalid results. Vaginal swab specimens containing up to 10% (v/v) whole blood exhibited no interference effects. Whole blood levels about 10% (v/v) may give invalid or false negative results. Vaginal swab specimens and urine specimens, all stabilized in ava (R) PCR media and containing greater than 1x105 PBMC cells/mL may give invalid or false results. Detection of C. trachomatis and N. gonorrhoeae is dependent on the number of organisms present in the specimen and may be affected by specimen collection methods, patient factors (i.e. age, history of STD, presence of symptoms), stage of infection and/or infecting C. trachomatis and N. gonorrhoeae strains. The ava (R) CT/NG test should not be used to determine therapeutic success as nucleic acids may be present after antimicrobial therapy. The ava (R) CT/NG test has not been evaluated in patients younger than 14 years of age. The ava (R) CT/NG test is not recommended for evaluation of suspected sexual abuse and for other medico-legal indications. URINE SPECIMEN / Unknown 08/21/2018 10:25 AM DEPUTY SHERIFF 08/21/2018 10:29 AM DEPUTY SHERIFF us Ramón Berman Serfling DO MICROBIOLOGY - GENERAL ORDER PENNY Final Result Performing Organization Address City/State/[facility] [[email or web address]] Co de Phone Number [facility] [address] [place], [place] [phone] from Last 3 Months or Most Recently Relevant to Health Maintenance Insurance [facility] [place] [address] [facility] [id number] Care Teams Head Chopper Relationship Specialty Start Date End Date Boby Davila MD PCP - General Family Medicine 03/27/14
--- OUTSIDE RECORDS SUMMARY | 2025-08-03 00:04 | XMS_ITS | Encounter Summary ---
Author Organization [facility] Address [address] [place] [address] Care Team Providers Care Back End Architect Name Role Phone Kameron Davila MD Primary Care Provider [phone] Encounter Details Date Type Department Care Team (Late st Contact Info) Description 06/06/2009 Historical Office Visit [employer] [facility] [place] [address] [place] [address] Sunny Schafer MD [address] [place] [address] Acute Pharyngitis; Acute Upper Respiratory Infections of Unspecified Site Social History Tobacco Use Types Packs/Day Years Used Date Smoking Tobacco: Never Assessed Comments Unknown Sex and Gender Information Value Date Recorded Sex Assigned at Not on file Legal Sex Female 2:48 PM CHANGE MANAGEMENT CONSULTANT Gender Identity Female 12/28/2020 10:43 PM CDT Sexual Orientation Straight 12/28/2020 10 :43 PM CDT documented as of this encounter Last Filed Vital Signs Vital Sign Reading Time Taken Comments Blood Pressure - - Pulse - - Temperature 37.2 C (99 F) 06/06/2009 8:23 AM CDT Respiratory Rate - - Oxygen Saturation - - Inhaled Oxygen Concentration - - Weight 20.4 kg (45 lb) 06/06/2009 8:23 AM CDT Height - - Body Mass Index - - documented in this encounter Plan of Treatment Not on file documented as of this encounter Visit Diagnoses Diagnosis Acute pharyngitis Acute upper respiratory infections of unspecified site documented in this encounter Care Teams Back End Architect Relationship Specialty Start Date End Date Kameron Davila MD PCP - General Family Medicine 03/27/14 documented as of this encounter
--- OUTSIDE RECORDS SUMMARY | 2025-08-03 00:04 | XMS_ITS | Encounter Summary ---
Author Organization [facility] Address [address] [place] [address] Care Team Providers Care Critical Care Unit Manager Name Role Phone Kameron Davila MD Primary Care Provider [phone] Encounter Details Date Type Department Care Team (Latest Contact Info) Description 10/09/2009 Historical Office Visit [address] [place] [address] Aris Mcdaniel, SUPERVISOR DENTURE DEPARTMENT Unspecified local infection of skin and subcutaneous tissue Social History Tobacco Use Types Packs/Day Years Used Date Smoking Tobacco: Never Assessed Comments Unknown Sex and Gender Information Value Date Recorded Sex Assigned at Not on file Legal Sex Female 2:48 PM LEARNING AND DEVELOPMENT ASSOCIATE Gender Identity Female 12/28/2020 10:43 PM CDT Sexual Orientation Straight 12/28/2020 10 :43 PM CDT documented as of this encounter Last Filed Vital Signs Vital Sign Reading Time Taken Comments Blood Pressure 90/68 10/09/2009 10:20 AM LEARNING AND DEVELOPMENT ASSOCIATE Pulse 92 10/09/2009 10:20 AM LEARNING AND DEVELOPMENT ASSOCIATE Temperature 36.5 C (97.7 F) 10/09/2009 10:20 AM LEARNING AND DEVELOPMENT ASSOCIATE Respiratory Rate - - Oxygen Saturation - - Inhaled Oxygen Concentration - - Weight 21.3 kg (47 lb) 10/09/2009 10:20 AM LEARNING AND DEVELOPMENT ASSOCIATE Height - - Body Mass Index - - documented in this encounter Plan of Treatment Not on file documented as of this encounter Visit Diagnoses Diagnosis Unspecified local infection of skin and subcutaneous tissue documented in this encounter Care Teams Critical Care Unit Manager Relationship Specialty Start Date End Date Kameron Davila MD PCP - General Family Medicine 03/27/14 documented as of this encounter
--- OUTSIDE RECORDS SUMMARY | 2025-08-03 00:04 | XMS_ITS | Encounter Summary ---
Author Organization [facility] Address [address] [facility] [place] [address] Phone Care Team Providers Care Biomed Tech Name Role Phone Kameron Davila MD Primary Care Provider [phone] Encounter Details Date Type Department Care Team (Late st Contact Info) Description 05/04/2022 [facility] [address] [place] [address] Sully Meza, LADLE HANDLER, HOG RINGER [address] [place] [address] Excessive and frequent menstruation with irregular cycle; Von Willebrand's disease (HCC) Social History Tobacco Use Types Packs/Day Years Used Date Smoking Tobacco: Never Assessed Comments Unknown Sex and Gender Information Value Date Recorded Sex Assigned at Not on file Legal Sex Female 3:14 AM LANDSCAPE CREW LEADER Gender Identity Not on file Sexual Orientation Not on file COVID-19 Exposure Response Date Recorded In the last 10 days, have yo u been in contact with someone who was confirmed or suspected to have Coronavirus/COVID-19? No / Unsure 05/05/2022 10:35 AM CDT documented as of this encounter Plan of Treatment Not on file documented as of this encounter Procedures Procedure Name Priority Date/Time Associated Diagnosis Comments IRON,TRANSFERN,CALC.T IBC,%SAT Routine 05/04/2022 3:50 PM CDT Excessive and frequent menstruation with irregular cycle Von Willebrand's disease (HCC) RETICULOCYTE COUNT (RETIC) Routine 05/04/2022 3:50 PM CDT Excessive and frequent menstruation with irregular cycle Von Willebrand's disease (HCC) FERRITIN Routine 05/04/2022 3:50 PM CDT Excessive and frequent menstruation with irregular cycle Von Willebrand's disease (HCC) documented in this encounter Results * FERRITIN (05/04/2022 3:50 PM CDT) FERRITIN 17 5 - 204 ng/mL [facility] ARCH [id number] A 05/05/2022 4:11 PM CDT [facility] Blood 05/04/2022 3:50 PM CDT 05/05/2022 3:11 PM CDT us Sully Meza APRN, HOG RINGER CHEMISTRY ORDERABLES Fi nal Result Performing Organization Address City/[facility]/ZIP Co de Phone Number [facility] [address] [place] [address], [place] * RETICULOCYTE COUNT (RETIC) (05/04/2022 3:50 PM CDT) RETICULOCYTES 1.1 0.5 - 2.0 % 05/05/2022 3:49 PM CDT [facility] Blood 05/04/2022 3:50 PM CDT 05/05/2022 3:11 PM CDT us Sully Meza APRN, HOG RINGER HEMATOLOGY ORDERABLES F inal Result [facility] [address] [place] [address], [place] * IRON,TRANSFERN,CALC.TIBC,%SAT (05/04/2022 3:50 PM CDT) IRON 121 25 - 156 mcg/dL 05/05/2022 3:53 PM CDT [facility] TRANSFERRIN 322 180 - 382 mg/dL 05/05/2022 3:53 PM CDT [facility] TIBC, CALCULATED 402 265 - 497 mcg/dL 05/05/2022 3:53 PM CDT [facility] % SATURATION * 30 15 - 62 % 05/05/2022 3:53 PM CDT [facility] Blood 05/04/2022 3:50 PM CDT 05/05/2022 3:11 PM CDT Narrative [facility] - 05/05/2022 3:53 PM CDT * % Transferrin Saturation us Sully Meza LADLE HANDLER, HOG RINGER CHEMISTRY ORDERABLES Fi nal Result Performing Organization Address City/State/[facility] Co de Phone Number [facility] [address] [place] [address], documented in this encounter Visit Diagnoses Diagnosis Excessive and frequent menstruation with irregular cycle Excessive or frequent menstruation Von Willebrand's disease documented in this encounter Additional Health Concerns Infection Onset Date Last Indicated Resolved Time COVID - 19 08/28/2023 08/28/2023 09/07/2023 12:1 6 AM LANDSCAPE CREW LEADER documented as of this encounter Care Teams Biomed Tech Relationship Specialty Start Date End Date Kameron Davila MD PCP - General Sports Medicine 12/22/17 documented as of this encounter
--- OUTSIDE RECORDS SUMMARY | 2025-08-03 00:05 | XMS_ITS | Encounter Summary ---
Author Organization [facility] Address [address] [place] [address] Care Team Providers Care Coremaker Supervisor Name Role Phone Kameron Davila MD Primary Care Provider [phone] Encounter Details Date Type Department Care Team (Latest Contact Info) Description 05/15/2013 Historical Office Visit [facility] [address] [place] [address] Aris Mcdaniel, CUSTOM BOOKBINDER Other general medical examination for administrative purposes Social History Tobacco Use Types Packs/Day Years Used Date Smoking Tobacco: Never Assessed Comments Unknown Sex and Gender Information Value Date Recorded Sex Assigned at Not on file Legal Sex Female 2:48 PM DIRECTOR DIGITAL STRATEGY Gender Identity Female 12/28/2020 10:43 PM CDT Sexual Orientation Straight 12/28/2020 10 :43 PM CDT documented as of this encounter Last Filed Vital Signs Vital Sign Reading Time Taken Comments Blood Pressure 92/49 05/15/2013 2:39 PM CDT Pulse 88 05/15/2013 2:39 PM CDT Temperature 36.7 C (98 F) 05/15/2013 2:39 PM CDT Respiratory Rate 20 05/15/2013 2:39 PM CDT Oxygen Saturation - - Inhaled Oxygen Concentration - - Weight 31 kg (68 lb 5 oz) 05/15/2013 2:39 PM CDT Height 141 cm (4' 7.5) 05/15/2013 2:39 PM CDT Body Mass Index 15.59 05/15/2013 2:39 PM CDT Body Mass Index Percentile 9.92% 05/15/2013 2:3 9 PM CDT Growth Chart: CDC (Girls, 2- 20 Years) documented in this encounter Progress Notes * Zan Rivas MD - 05/15/2013 2:39 PM CDT Nursing Chief Complaint/Reason For Encounter 12 Year [facility]/Sports Px Quality Metrics Influenza vaccination up-to-date? No. Depression Screening date: 05/15/2013. Over the past 2 weeks, have you felt little interest or pleasure in doing things? No. Over the past 2 weeks, have you felt down, depressed, or hopeless? No. Subjective HPI Here with her grandmother today for sports physical. Patient will be a seventh grader and plans to play multiple sports. She's been well recently. They do have a concern of possible yeast infection do to discomfort in her genital area. She does have a history of asthma and has albuterol inhaler for acute use. She also uses daily antihistamine and Nasonex nasal spray for allergies. Her catering sales manager has had her use Benadryl and has ordered her an EpiPen to be available at school. No history of seizure disorder, no bee sting allergy and no family history of sudden cardiac . Allergies Reviewed: May 15 2013 NEOSPORIN: Rash; SHELLFISH Past Med/Surg History Procedures [...] SC; Dates: 03/08/2002 Med List last modified May 15 2013 Reviewed: May 15 2013 Children's Claritin 5 mg Chewable Tab, 1 cap(s) by mouth daily taking Nasonex 50 mcg/actuation [place], 1 spray(s) each nostril daily taking Ventolin HFA 90 mcg/Actuation Aerosol Inhaler, 1 puff by mouth up to 3 times a day as needed for shortness of breath, 18 taking Zyrtec 10 mg Chewable Tab, 1 tab(s) by mouth before bedtime taking discontinued discontinued Preferred Pharmacy [facility] [place] ([place]) [[address]] Family History last modified Jan 03 2011 Positive Family History for: Asthma Bipolar disorder Breast cancer Depressive disorder Diabetes mellitus Hyperlipidemia Lung cancer Migraine Thyroid disorder Social History last modified Jun 09 2012 Tobacco Never smoked; Never used smokeless; Tobacco reviewed with patient 05/15/2013 Personal: Ethnicity: Not ; Race: WHITE; Primary language: FRISIAN; Marital status: Single; Employer: NONE Review of systems Constitutional: No fever, No chills, No abnormal weight gain, No abnormal weight loss Eyes (R,L): No Visual disturbances, No eye itching, No eye pain ENT and Mouth: No epistaxis, No rhinorrhea, No throat pain, No hoarseness, No ear pain, No hearing loss, No tinnitus Cardiovascular: No chest pain Respiratory: No dyspnea at rest, No dyspnea on exertion, No cough, No wheezing, No hemoptysis, No pleuritic chest pain Lymphatic and Hematology: No lymph node tenderness, No lymph node swelling, Does not bruise easily Gastrointestinal: No nausea, No vomiting, No abdominal pain, No diarrhea, No constipation Genitourinary: No polyuria, No nocturia, No dysuria, Vaginal itching, Vaginal discharge, Vaginal discomfort White discharge vagina with itching and pain Integumentary: No rash, No pruritus history of atopic dermatitis or eczema that is controlled at this time Musculoskeletal: No neck pain, No back pain Extremities (R,L): No upper extremity joint stiffness, No upper extremity joint pain, No upper extremity weakness, No lower extremity joint stiffness, No lower extremity joint pain, No lower extremity weakness Neurologic: No headaches, No lightheadedness, No vertigo, No syncope, No numbness, No muscle weakness Endocrine: No fatigue, No increased thirst Objective Vital Signs Other and Notes: Vision R-20/25 L-20/20 Date/Time: May 15 2013 14:42 Temp: 98??F (Other) [36.7??C] HR: 88 bpm RR: *20 Blood Pressure: 92/49 mmHg (L arm sitting Adult-std cuff) Height: 55.5 in [140.97 cm](3.6 percentile) Weight:68 lb 5 oz lbs [30.986 kg ](2.5 percentile) BMI:15.6 (10.0 percentile) SBP%: 16.1 DBP%: 13.4 BSA: 1.117 Date/Time: May 15 2013 14:39 Physical Exam Constitutional: Well groomed, Alert, No acute distress, Body habitus normal, Well nourished smiling, playful, answers questions appropriately for age Eyes (R,L): Pupils equal and reactive, Conjunctiva normal, Sclera normal, Red reflex normal allergic shiners ENT: Nasal septum normal, Nasal turbinates normal, Nasal mucosa normal, Oropharynx normal, Gingiva normal, Dentition normal Ears (R,L): External ear normal, Ear canal normal, Tympanic membrane normal braces on her teeth at this time Neck: Neck symmetric, Neck mass absent, No thyroid nodule, Thyromegaly absent Cardiovascular: PMI normal to palpation, No thrills or heaves found, Normal S1, Normal S2, No heartmurmur found Cardiovascular Bilateral (R,L): Normal radial pulse, Posterior tibial pulse present Respiratory: Normal respiratory effort, Breath sounds normal no rales or rhonchi, No wheezing heard Lymphatic (R,L): No abnormal anterior cervical lymphadenopathy, No posterior cervical lymphadenopathy Gastrointestinal: Bowel sounds normal, No abdominal tenderness, No abdominal mass, No hepatomegaly,No splenomegaly Genitourinary female: No bladder distention, No suprapubic tenderness There is erythema of the inner folds of the labia with a thick white discharge present, consistent with yeast infection Integumentary: Skin warm and dry, Skin color normal, Rashes not found, Abnormal moles not found, Fingers and nails normal to inspection Neurologic: Normal gait, Cranial nerves II-XII grossly intact Neuro bilateral (R,L): Biceps reflex normal, Triceps reflex normal, Patellar reflex normal, Achilles reflex normal, Normal light touch sensation Psych and mental status: Oriented X3, No signs of depression, No signs of anxiety Musculoskeletal Neck: Neck inspection normal, Neck range of motion normal, Neck tenderness absent, Neck muscle tonenormal Lumbar Spine Musculoskeletal: Lumbar spine inspection normal, Lumbar spine range of motion normal, Lumbar spine tenderness absent, Lumbar spine muscle tone normal Upper extremities (R,L): Upper extremity inspection normal, Upper extremity range of motion normal,No instability of upper extremity found, Upper extremity tenderness absent, Upper extremity strength normal, Upper extremity muscle tone normal Lower Extremities (R,L): Lower extremity inspection normal, Lower extremity range of motion normal,No lower extremity instability found, Lower extremity tenderness absent, Lower extremity strength normal, Lower extremity muscle tone normal Assessment Assessments Allergic rhinitis (ICD-9 billing code: 477.9) Asthma (ICD-9 billing code: 493.90) Atopic dermatitis (ICD-9 billing code: 691.8) Reina vulvo/vaginitis (ICD-9 billing code: 112.1) Well child check (ICD-9 billing code: V20.2) Plan: Other orders patient was approved to participate insports without restriction for one year. Forms completed so she can have an albuterol inhaler with her at school. Recommend OTC Gyne-Lotrimin cream applied topically to the labia twice a day. : Patient education: nutrition, hydration and safety, Patient Education Information: Verbal information given to patient. Patient receptive and voicedunderstanding. No review needed., Recheck in: one year and as needed . Patient may continue medications for chronic conditions until next scheduled visit. Disclaimer: Note: To increase efficiency your provider prepared this document using voice recognition technology. If a word or phrase is confusing, or does not make sense, this is likely due to a recognition error within the program which was not discovered during the providers review. If you believe an error has occurred, please notify your providers office at your earliest convenience, so we can correct any mistakes. Contributors to this Visit Note Documenting Clinician: Emily MAI - Staff Type: Office staff Time: May 15 2013 14:39 Action: Amber MAI - Staff Type: Office staff Time: May 15 2013 14:42 Action: Edit Emily MCDANIEL - Staff Type: SENIOR LEAD SOFTWARE ENGINEER Time: May 15 2013 18:02 Action: Edit Emily MCDANIEL - Staff Type: SENIOR LEAD SOFTWARE ENGINEER Time: May 15 2013 18:02 Action: Sign Leti RIVAS - Staff Type: Time: May 20 2013 20:56 Action: Supervise documented in this encounter Plan of Treatment Not on file documented as of this encounter Visit Diagnoses Diagnosis Other general medical examination for administrative purposes documented in this encounter Care Teams Coremaker Supervisor Relationship Specialty Start Date End Date Kameron Davila MD PCP - General Family Medicine 03/27/14 documented as of this encounter
--- OUTSIDE RECORDS SUMMARY | 2025-08-03 00:05 | XMS_ITS | Encounter Summary ---
Author Organization [employer] [facility] Address [address] [place] [address] Care Team Providers Care Cook Specialty Name Role Phone Kameron Davila MD Primary Care Provider [phone] Encounter Details Date Type Department Care Team (Latest Contact Info) Description 08/04/2011 Historical Office Visit [facility] [address] [address] Bal Tian MD [address] [place], [place] [id number] Contact dermatitis and other eczema, due to unspecified cause Social History Tobacco Use Types Packs/Day Years Used Date Smoking Tobacco: Never Assessed Comments Unknown Sex and Gender Information Value Date Recorded Sex Assigned at Not on file Legal Sex Female 2:48 PM BUSINESS SYSTEMS ADMINISTRATOR Gender Identity Female 12/28/2020 10:43 PM CDT Sexual Orientation Straight 12/28/2020 10 :43 PM CDT documented as of this encounter Last Filed Vital Signs Vital Sign Reading Time Taken Comments Blood Pressure - - Pulse 118 08/04/2011 3:08 PM CDT Temperature 36.8 C (98.3 F) 08/04/2011 3:08 PM CDT Respiratory Rate - - Oxygen Saturation - - Inhaled Oxygen Concentration - - Weight 25.9 kg (57 lb) 08/04/2011 3:08 PM CDT Height 130 cm (4' 3.2) 08/04/2011 3:08 PM CDT Body Mass Index 15.29 08/04/2011 3:08 PM CDT Body Mass Index Percentile 16.88% 08/04/2011 3:0 8 PM CDT Growth Chart: CDC (Girls, 2- 20 Years) documented in this encounter Progress Notes * Bal Tian MD - 08/04/2011 3:07 PM CDT Nursing Chief Complaint/Reason For Encounter Dr Rosales's patient-rash stomach/back/arms/behind ears: Tobacco history reviewed and appropriate changes made to the Social History., Medication list given and reviewed with patient/family and voicesunderstanding. Subjective HPI She is here today for a very itchy rash on trunk and upper or lower extremities, and behind ears. The rash is macro papular, and involves some scaling and flaking as well. She has several very excoriated areas. Dr. Rivas had placed her on some dexamethasone which did help for a while, but it's effects have worn off since she has been off. No history of asthma. But does have allergic rhinitis Allergies Reviewed: Aug 04 2011 NEOSPORIN: Rash; SHELLFISH Past Med/Surg History Procedures [...] SC; Dates: 03/08/2002 Med List last modified Aug 04 2011 Reviewed: Aug 04 2011 albuterol sulfate 2.5 mg/3 mL (0.083 %) Neb Solution, One neb every 4 to 6 hours as needed for asthma excerbation, 3 ml taking triamcinolone acetonide 0.1 % Ointment, Apply to affected area(s) 2 times per day, 30 gm(s) taking Ventolin HFA 90 mcg/Actuation Aerosol Inhaler, 1 puff by mouth up to 3 times a day as needed for shortness of breath, 18 gm(s) taking discontinued (Course Completed) Preferred [facility]acy [facility] ([facility] [[facility], [address] [place] [address]] Family History last modified Jan 03 2011 Positive Family History for: Asthma Bipolar disorder Breast cancer Depressive disorder Diabetes mellitus Hyperlipidemia Lung cancer Migraine Thyroid disorder Social History last modified Mar 09 2011 Tobacco Never smoked; Tobacco reviewed with patient 08/04/2011 Personal: Ethnicity: Not ; Race: WHITE; Primary language: GAMBIAN; Marital status: Single; Employer: NONE Review of systems Constitutional: No fever, No chills Objective Vital Signs Temp: 98.3??F (Skin) [36.9??C] HR: 118 bpm Height: 51.2 in [130.048 cm](4.6 percentile) Weight:57 lb 0 oz lbs [25.855 kg ](3.3 percentile) BMI: 15.3 (17.0 percentile) BSA: 0.976 Pain Scale: 0/10 (Numeric) Date/Time: Aug 04 2011 15:08 Physical Exam Cardiovascular: Normal S1, Normal S2, No S3, No S4, No heart murmur found Constitutional: Well groomed, Alert, No acute distress, Body habitus normal Gastrointestinal: Bowel sounds normal, No abdominal tenderness, No abdominal mass, No splenomegaly,No hepatomegaly, No CVA tenderness Integumentary Rash as described above Respiratory: Normal respiratory effort, Breath sounds normal no rales or rhonchi, No wheezing heard Assessment Assessments Atopic dermatitis (ICD-9 billing code: 691.8) Eczema (incl atopic dermatitis) (ICD-9 billing code: 691.8) Billing Detail Medication Management: New/current prescription meds Plan Prescription Orders Rx Cart - Aug 04 2011 15:18 clobetasol 0.05 % Topical Cream, apply to affected area every evening, 60 gm(s), 1 refill (Atopic dermatitis) Vanicream Topical, Apply to affected area tid, 360 gm(s), 3 refills (Eczema (incl atopic dermatitis)) Cart Status: Submitted Route: Electronic Rx Cart Order Notes: SLOAN prescriptions to [place], [place] ([place]) NCPDP ID [id number] phone: [phone] fax: [phone] Message for Pharmacy: - Procedure Orders Dermatology Consult Order (Requested - Atopic dermatitis, Eczema (incl atopic dermatitis)): PatientEducation Information: Verbal information given to patient. Patient receptive and voiced understanding. No review needed. Given the nature of the rash, her blonde hair and blue eyes, and her propensity toward long showers, I believe this is eczema. I'm going to prescribe clobetasol cream to be used sparingly for a shorttime. I warned the dad of the possible risk of skin thinning. I'm going to have her see a laboratory immunologist. Also use emollient after showers. Contributors to this Visit Note Documenting Clinician: Leti DÍAZ - Type: NONE Time: Aug 04 2011 15:07 Action: Amber DÍAZ - Staff Type: NONE Time: Aug 04 2011 15:09 Action: Crista TIAN - Staff Type: Physician Time: Aug 04 2011 17:39 Action: Crista Gomez Staff Type: Physician Time: Aug 04 2011 17:39 Action: Sign documented in this encounter Plan of Treatment Not on file documented as of this encounter Visit Diagnoses Diagnosis Contact dermatitis and other eczema, due to unspecified cause documented in this encounter Care Teams Cook Specialty Relationship Specialty Start Date End Date Kameron Davila MD PCP - General Family Medicine 03/27/14 documented as of this encounter
--- OUTSIDE RECORDS SUMMARY | 2025-08-03 00:05 | XMS_ITS | Encounter Summary ---
Author Organization [employer] Address [address] [place] [address] Care Team Providers Care Hydraulic Controls Technician Name Role Phone Kameron Davila MD Primary Care Provider [phone] Encounter Details Date Type Department Care Team (Latest Contact Info) Description 01/06/2012 Historical Office Visit [facility] [address] [place] [address] Zan Rivas MD Unspecified asthma, with exacerbation Social History Tobacco Use Types Packs/Day Years Used Date Smoking Tobacco: Never Assessed Comments Unknown Sex and Gender Information Value Date Recorded Sex Assigned at Not on file Legal Sex Female 2:48 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 MILL 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 Gender Identity Female 12/28/2020 10:43 PM CDT Sexual Orientation Straight 12/28/2020 10 :43 PM CDT documented as of this encounter Last Filed Vital Signs Vital Sign Reading Time Taken Comments Blood Pressure 108/60 01/06/2012 1:48 PM CDT Pulse 93 01/06/2012 1:48 PM CDT Temperature 36.6 C (97.8 F) 01/06/2012 1:48 PM CDT Respiratory Rate - - Oxygen Saturation - - Inhaled Oxygen Concentration - - Weight 26.5 kg (58 lb 8 oz) 01/06/2012 1:48 PM C DT Height - - Body Mass Index - - documented in this encounter Progress Notes * Zan Rivas MD - 01/06/2012 1:48 PM CDT Nursing Chief Complaint/Reason For Encounter asthma: Medication list given and reviewed with patient/family and voices understanding. Subjective Allergies NEOSPORIN: Rash; SHELLFISH Past Med/Surg [...] Dates: 03/08/2002 Med List last modified Jan 06 2012 Reviewed: Jan 06 2012 albuterol sulfate 2.5 mg/3 mL (0.083 [...] shortness of breath, 18 gm(s) taking discontinued discontinued discontinued Preferred [facility] ([facility] [[facility], [address] [place] [address]] Family History last modified Jan 03 2011 [...] Ethnicity: Not ; Race: White/; Primary language: QATARI; Maritalstatus: Single; Employer: NONE Objective Vital Signs Temp: 97.8??F (Skin) [36.6??C] HR: 93 bpm Blood Pressure: 108/60 mmHg (R arm sitting Child cuff) Weight:58 lb 8 oz lbs [26.535 kg ](2.4 percentile) BMI: 16.0 (24.9 percentile) BSA: 0.98 (Height value used from 11/29/2011) Other and Notes: sp02 99% hr-93 @ rest. Date/Time: Jan 06 2012 13:48 Assessment Assessments ASTHMA, UNSPECIFIED (ICD-9 billing code: 493.90) Billing Detail Medication Management: New/current prescription meds S: Positive recent URI symptoms, history of bronchospasm in the past, here with mother and father. She used her inhaler a couple times a day. Subjective fever. O: Focal exam. Pulse oximetry is normal with and without exertion, positive mild expiratory, respiratory wheeze. Speaks in normal sentences. No flaring of nostrils. TMs are clear bilaterally. Nasal passages patent with mild clear rhinorrhea. No cyanosis. Pulmonary: mild expiratory wheeze. No rales no rhonchi or crackles. Cardiovascular: tachycardic, S1 and S2 no S3. Abdomen soft, appears nontender. Bowel sounds positive, masses. A: Bronchospasm. allergic rhinitis/URI symptoms. P: Nebulizer treatment was given with improvement in her breathing. DX: None [place]: Amoxicillin, 500 mg 3 times a day for 10 days. No prednisone at this time. Will use nebulizer solution which was called in to the pharmacy. ED: Respiratory distress to seek medical attention. Nebulizer machine was given along with tubing and chamber. Patient's parents are present. Note was given for school. Parents verbalized understanding of the above plan. Zan Rivas M.D. Plan Prescription Orders Rx Cart - Jan 06 2012 15:44 albuterol sulfate 2.5 mg/3 mL (0.083 %) Neb Solution, 1 vial per nebulizer given in office today, *Samples Given Lot #: [id number] Expiration Date:04/20, 3 ml, No refills (Asthma, unspecified) Cart Status: Submitted Route: Phone Rx Cart Order Notes: 1 vial per nebulizer given in office today Phone prescriptions to [facility] ([facility]) IDPDP [place] [id number] phone: [phone] fax: : Patient Education Information: Written and verbal information given to patient. Patient receptive and voiced understanding. No review needed. Contributors to this Visit Note Documenting Clinician: Leti ROJAS - Staff Type: NONE Time: Jan 06 2012 13:48 Action: Amber ROJAS - Staff Type: NONE Time: Jan 06 2012 14:25 Action: Edsusy RIVAS - Staff Type: Physician Time: Jan 08 2012 23:56 Action: Crista RIVAS - Staff Type: Physician Time: Jan 08 2012 23:56 Action: Sign documented in this encounter Plan of Treatment Not on file documented as of this encounter Visit Diagnoses Diagnosis Unspecified asthma, with exacerbation documented in this encounter Care Teams Hydraulic Controls Technician Relationship Specialty Start Date End Date Kameron Davila MD PCP - General Family Medicine 03/27/14 documented as of this encounter
--- OUTSIDE RECORDS SUMMARY | 2025-08-03 00:05 | XMS_ITS | Encounter Summary ---
Author Organization [facility] Address [address] [place] [address] Care Team Providers Care Repairer Screen Crusher Name Role Phone Kameron Davila MD Primary Care Provider [phone] Encounter Details Date Type Department Care Team (Late st Contact Info) Description 11/29/2011 Historical Office Visit [facility] [place] [address] [place] [address] Orin Angelo, PA-C [address] [place] [address] Rash and other nonspecific skin eruption Social History Tobacco Use Types Packs/Day Years Used Date Smoking Tobacco: Never Assessed Comments Unknown Sex and Gender Information Value Date Recorded Sex Assigned at Not on file Legal Sex Female 2:48 PM INSURANCE INVESTIGATOR Gender Identity Female 12/28/2020 10:43 PM CDT Sexual Orientation Straight 12/28/2020 10 :43 PM CDT documented as of this encounter Last Filed Vital Signs Vital Sign Reading Time Taken Comments Blood Pressure - - Pulse 98 11/29/2011 5:50 PM INSURANCE INVESTIGATOR Temperature 37.1 C (98.8 F) 11/29/2011 5:50 PM INSURANCE INVESTIGATOR Respiratory Rate 20 11/29/2011 5:50 PM INSURANCE INVESTIGATOR Oxygen Saturation - - Inhaled Oxygen Concentration - - Weight 25.9 kg (57 lb) 11/29/2011 5:50 PM INSURANCE INVESTIGATOR Height 128.9 cm (4' 2.75) 11/29/2011 5:50 PM CS T Body Mass Index 15.56 11/29/2011 5:50 PM INSURANCE INVESTIGATOR Body Mass Index Percentile 18.68% 11/29/2011 5:5 0 PM INSURANCE INVESTIGATOR Growth Chart: CDC (Girls, 2- 20 Years) documented in this encounter Progress Notes * Orin Angelo PA-C - 11/29/2011 5:41 PM CST Nursing Chief Complaint/Reason For Encounter RASH POSS INFECTION Intake Note REOCCURRIN RASH SCATTERED OVER BODY. FINISHED 11/25 RETURNED 11/26. 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 HADBIOPSY DONE 2WKS AGO NO RESULTS. RASH ITCHES. INNER WRIST APPEARS REDDNED AND PT C/O INCREASED PAININ AREA. ADMITS TO SCRATCHING: Mode of arrival Walk, PCP [facility] @ [address]: Pulse oximetry 96%,Time of arrival 1735 Subjective HPI Patient denies history of asthma but does have allergic rhinitis and many allergies to environmental allergens. Maritza is a 10-year-old female who presents here today with her parents with complaints of a chronic rash that has been going on for the last couple of months. The father states that she has this reoccurring rash that is scattered over the body. Mother states that she finished prednisone on November 25, and the rash returned on November 26. She states that while she was on the prednisone the rash was very well controlled, and the patient's symptoms were very well controlled. However, she states that the next day after she finished the prednisone the rash returned. The patient has been to an commercial real estate associate and also a radiator cleaner. A biopsy was done 2 weeks ago by the radiator cleaner with no retu rns yet. The father states that he was supposed to have an appointment to see the radiator cleaner tomorrow. However, the appointment got pushed back until Tuesday. The patient states that the rash itches to the point that the left inner wrist has been scratched so much that the area is now red with increased pain to the area. She states that she has been scratching all over secondary to the rash being so itchy. Mother states that they have been on numerous steroid creams, hydrocortisone creams, oral prednisone, and nothing seems to be working to completely clear up the rash. She states by far the oral prednisone has helped the most. However, she states that once she is off the oral prednisone the rash continues. The patient does see Dr. Rivas for primary care, and they have been treating herfor an eczema-type rash, and she also sees the commercial real estate associate and the radiator cleaner. Mother states that nothing ndaq-[id number] helps. Benadryl does not even touch the itch. The patient has been taking mmaf-gyi-vpuimcp ibuprofen and Tylenol to help with the pain to the left wrist. //lag Allergies NEOSPORIN: Rash; SHELLFISH Past Med/Surg History [...] SC; Dates: 03/08/2002 Med List last modified Nov 29 2011 Reviewed: Nov 29 2011 albuterol sulfate 2.5 mg/3 mL (0.083 %) Neb Solution, One neb every 4 to 6 hours as needed for asthma excerbation, 3 ml taking desonide 0.05 % Topical Cream, Apply to affected area(s) 2 times per day taking triamcinolone acetonide 0.1 % Ointment, Apply to affected area(s) 2 times per day, 30 gm(s) - Vanicream Topical, Apply to affected area tid, 360 gm(s) taking Ventolin HFA 90 mcg/Actuation Aerosol Inhaler, 1 puff by mouth up to 3 times a day as needed for shortness of breath, 18 gm(s) taking discontinued (CHANGED) Preferred [facility] ([facility] [[place], [address] [facility]] Family History last modified Jan 03 2011 [...] Ethnicity: Not ; Race: WHITE; Primary language: ISRAELI; Marital status: Single; Employer: NONE Objective Vital Signs Temp: 98.8??F (Other) [37.2??C] HR: 98 bpm RR: 20 Height: 50.75 in [128.905 cm](1.8 percentile) Weight:57 lbs [25.855 kg ](1.9 percentile) BMI: 15.6 (19.3 percentile) BSA: 0.97 Pain Scale: 6/10 (Numeric) Location: INNER LT WRIST Frequency: Constant Duration: 4TH DAY Significant to Visit: Yes Date/Time: Nov 29 2011 17:50 Physical Exam Respiratory: Shape and symmetry of chest normal, Respiratory effort normal, Breath sounds normal, Breath sounds clear to auscultation, No rales, No rhonchi, No wheezing GENERAL: Maritza is a 10-year-old female who is alert and oriented x3. The patient is in no apparent distress. The patient however is in discomfort with rash present to the body, and the rash has been itchy. The patient has been scratching. The patient is very miserable with itchy rash noted to the body. The patient does appear ill or septic. The patient does not appear toxic. She is appropriate at the time of exam. The patient is complaining of pain to the left wrist at the time of exam. VITAL SIGNS: Reviewed. Temperature is 98.8. Mother does deny any fevers or chills. The rest of the vital signs are stable. O2 sat is 96% on room air. HEENT: Conjunctivae and sclerae normal without any redness and no eye drainage noted. No signs of any conjunctivitis. PERRLA. Extraocular movements intact and normal. Nose: Nasal mucosa is erythematous and slightly boggy. Clear drainage was noted from the nasal passages. Throat: Oropharynx is normal. Uvula is midline. No swelling noted to the throat. CARDIOVASCULAR: Regular rate and rhythm. No murmurs noted. RESPIRATORY: The lungs are clear to auscultation bilaterally. No wheezing, rhonchi, or rales noted.No shortness of breath or wheezing. No chest tightness, no labored breathing, and no retractions. Respiratory effort is normal. Chest is equal and symmetric bilaterally. SKIN: The patient does have a maculopapular reddened rash noted to the bilateral legs, to the trunk, behind the ears, and also to the bilateral wrists and also on the buttocks. No vesicles or blistering are present. There are several areas of excoriation from the patient scratching. The rash to theleft wrist area is very excoriated and skin over the left wrist is erythematous. No drainage is noted. The area is not warm to the touch. It is slightly swollen. Also the area to the buttock region is very excoriated as well with some increased redness. No signs of any active cellulitis to the leftwrist. The surrounding skin is not erythematous. She has no streaking. All other areas of rashes are pretty much localized. No surrounding redness or any areas of excoriation. //lag Assessment Assessments Atopic dermatitis (ICD-9 billing code: 691.8) Skin/Subcutaneous infection (ICD-9 billing code: 686.9) Billing Detail Medication Management: New/current prescription meds Plan: Other orders Given that patient has been on so many medications for this rash, we are limitied in our treatment, we will give her oral prednisone/Bactrim today and parents were instructed to Follow-up with her Community Service Specialist as scheduled. Patient Education: Instructions given on antibiotic usage and side effects, Instructed on use of anti-inflammatory and anti-pyretics, Education on antihistamines and/or cold medicines, Pt instructed to rest and push fluids, Wound care instructions given to patient, Patient Education Information: Verbal information given to patient. Patient receptive and voiced understanding. No review needed., Patient education Instructed on use of prescribed medications and to complete course. Use warm/cool compresses to areas that are painful. Continue with current regimen of prescribed topical creams. May take OTC Tylenol/Motrin for pain. Follow-up with Community Service Specialist as scheduled on Tuesday or earlier if symptoms worsen. Prescription Orders Rx Cart - Nov 29 2011 18:35 Orapred 15 mg/5 mL Oral Soln, 1 teaspoon by mouth BID, 5 day(s), No refills sulfamethoxazole-trimethoprim 200 mg-40 mg/5 mL Oral Susp, 2 teaspoons by mouth BID , 7 day(s), No refills Cart Status: Submitted Route: Electronic Rx Cart Order Notes: SLO[facility] prescriptions to [place], [place] ([place]) NEPDP ID [id number] phone: [phone] fax: [phone] Message for Pharmacy: - Follow up: Instructed patient to return within 24 to 48 hours if symptoms worsen or to follow up with primary care physician if sympoms not improved within 1 to 2 weeks Follow-up with Community Service Specialist as scheduled on Tuesday or earlier if symptoms worsen. Contributors to this Visit Note Documenting Clinician: Conrad CASTANEDA - Staff Type: Registered Nurse Time: Nov 29 2011 17:41 Action: Amber CASTANEDA - Staff Type: Registered Nurse Time: Nov 29 2011 17:59 Action: Edit Conrad ANGELO - Staff Type: Physician Time: Nov 29 2011 20:22 Action: Edit Conrad ANGELO - Staff Type: Physician Time: Nov 29 2011 20:24 Action: Sign Conrad ANGELO - Staff Type: Physician Time: Dec 01 2011 08:42 Action: Attest documented in this encounter Plan of Treatment Not on file documented as of this encounter Visit Diagnoses Diagnosis Rash and other nonspecific skin eruption documented in this encounter Care Teams Repairer Screen Crusher Relationship Specialty Start Date End Date Kameron Davila MD PCP - General Family Medicine 03/27/14 documented as of this encounter
--- OUTSIDE RECORDS SUMMARY | 2025-08-03 00:05 | XMS_ITS | Encounter Summary ---
Author Organization [facility] Address [address] [place] [address] Care Team Providers Care Tarp Repairer Name Role Phone Kameron Davila MD Primary Care Provider [phone] Encounter Details Date Type Department Care Team (Late st Contact Info) Description 10/27/2011 Historical Office Visit [facility] [address] [place] [id number] Zan Rivas MD Social History Tobacco Use Types Packs/Day Years Used Date Smoking Tobacco: Never Assessed Comments Unknown Sex and Gender Information Value Date Recorded Sex Assigned at Not on file Legal Sex Female 2:48 PM NAVAL ENGINEER Gender Identity Female 12/28/2020 10:43 PM CDT Sexual Orientation Straight 12/28/2020 10 :43 PM CDT documented as of this encounter Progress Notes * Zan Rivas MD - 10/27/2011 11:59 AM CST Additional Note Plan Lab Orders Basic Metabolic Panel (BMP) (Dysuria) Hemoglobin A1C (Dysuria) Urinalysis with Microscopic (UA w/Micro) (Dysuria) Contributors to this Visit Note Documenting Clinician: Leti RIVAS - Staff Type: Physician Time: Oct 27 2011 11:59 Action: Amber ROJAS - Staff Type: NONE Time: Oct 27 2011 12:10 Action: Crista RIVAS - Staff Type: Physician Time: Oct 27 2011 18:21 Action: Crista RIVAS - Staff Type: Physician Time: Oct 27 2011 18:21 Action: America RIVAS - Staff Type: Physician Time: Oct 28 2011 23:36 Action: Attest Office conversation with the patient's mom, Maren Newsome: Her maternal grandmother is a diabetic and just to see I think they went ahead and checked Maritza's blood sugar and they thought is was over 175. They are not sure if it was fasting or not. I looked with both maternal grandmother, Bk, as well as Maren Newsome, her mother, looking at her previous labs which have all been unremarkable. If, however, she is having nocturnal enuresis, signs or symptoms of yeast vaginitis, or signs or symptoms of diabetic ketoacidosis to upfu-wbqtcir-kjhimmeub immediately. I went ahead and gave them a script to have fasting blood work collected if it looks like there is any symptomatology. The patient and mom, who was present today, verbalized understanding of above plan. Keep regular appointment with me. Otherwise, sooner if needed. //ed documented in this encounter Plan of Treatment Not on file documented as of this encounter Visit Diagnoses Not on filedocumented in this encounter Care Teams Tarp Repairer Relationship Specialty Start Date End Date Kameron Davila MD PCP - General Family Medicine 03/27/14 documented as of this encounter
--- OUTSIDE RECORDS SUMMARY | 2025-08-03 00:06 | XMS_ITS | Encounter Summary ---
Author Organization [facility] Address [address] [place] [address] Care Team Providers Care Digital Printer Name Role Phone Kameron Davila MD Primary Care Provider [phone] Encounter Details Date Type Department Care Team (Latest Contact Info) Description 01/10/2011 Historical Office Visit [facility] [address] [place] [id number] Diana Bernabe DO [address] [place] [id number] Pain in soft tissues of limb Social History Tobacco Use Types Packs/Day Years Used Date Smoking Tobacco: Never Assessed Comments Unknown Sex and Gender Information Value Date Recorded Sex Assigned at Not on file Legal Sex Female 2:48 PM MANAGER CATH LAB Gender Identity Female 12/28/2020 10:43 PM CDT Sexual Orientation Straight 12/28/2020 10 :43 PM CDT documented as of this encounter Last Filed Vital Signs Vital Sign Reading Time Taken Comments Blood Pressure - - Pulse 103 01/10/2011 9:15 AM CDT Temperature 37.1 C (98.7 F) 01/10/2011 9:15 AM CDT Respiratory Rate 22 01/10/2011 9:15 AM CDT Oxygen Saturation - - Inhaled Oxygen Concentration - - Weight 23.2 kg (51 lb 4 oz) 01/10/2011 9:15 AM C DT Height - - Body Mass Index - - documented in this encounter Progress Notes * Diana Bernabe DO - 01/10/2011 9:11 AM CDT Nursing Chief Complaint/Reason For Encounter LEFT FOOT INJURY Intake Note PATIENT PRESENTS A/O, SKIN WARM/DRY, RESP REG/EASY, SLIGHT BRUISING ON LEFT FOOT, NO SWELLING NOTED, BRISK CAP REFILL, LEFT FOOT SENSATION PRESENTS. PARENTS INDICATE THAT CHILD WAS PLAYING AT [employer] AND SHE WENT DOWN A SLIDE AND BENT HER LEFT FOOT. MOTHER STATES CHILD IS LIMPING AND WALKING ONTHE INSIDE OF FOOT. DENIES OTC MEDICATIONS. Mode of arrival Carry, PCP DR Rohini BROWN Pulse oximetry 99, Time of arrival 0910 Subjective HPI Presents with parents. they report she slid down the slide yesterday at [employer] and ran into someone at the [facility]. Her toes caught and her foot extended. She has had pain to the top of the footwithout swelling or bruising. The pain awakened her during sleep last night. No previous injury. Allergies NEOSPORIN: Rash; SHELLFISH Past Med/Surg History Procedures * 1. Initial Pt. Ed Learning Preference(2); Last Performed: 02/13/2008 Health Maintenance Procedures * 1. Initial Pt. Ed Learning Preference(2); Last Performed: 02/13/2008 Health Maintenance Immunizations DTaP [...] Dates: 03/08/2002 Med List last modified Jan 10 2011 albuterol sulfate 2.5 mg/3 mL (0.083 %) Neb Solution, inhale per nebulizer by mouth as directed by doctor taking nitrofurantoin oral unit 50 mg, 1 cap(s) by mouth before bedtime taking Ventolin HFA 90 mcg/Actuation Aerosol Inhaler, 1 puff by mouth up to 3 times a day as needed for shortness of breath, 18 gm(s) taking discontinued (NOT TAKING) Preferred Pharmacy [facility] ([place]) [[place], [address] [facility]] Family History last modified 01/03/2011 Positive Family History for: Asthma Bipolar disorder Breast cancer Depressive disorder Diabetes mellitus Hyperlipidemia Lung cancer Migraine Thyroid disorder Social History last modified 01/10/2011 Home Safety Risk Seat belt worn consistently; Smoke detectors in home; Child safety seat use; [place] to swim Personal: Ethnicity: 1; Race: White; Primary language: [employer]; Marital status: Single; Multiple : No Review of systems Constitutional No fever, No chills, No abnormal weight gain, No abnormal weight loss, No fatigue Musculoskeletal Extremities (R,L) Myalgia, Arthralgia, No lower extremity weakness, Lower extremity pain Left foot as described. Objective Vital Signs Temp: 98.7??F (Other) [37.1??C] HR: 103 RR: 22 Weight: 51 lb 4 oz lbs [ 23.247 kg ] Pain Scale: 8/10 (Numeric) Location: LEFT FOOT Significant to Visit: Yes Date/Time: Jan 10 2011 09:15 Physical Exam Constitutional Well groomed, Alert, No acute distress, Body habitus normal (General appearance), Well nourished Musculoskeletal Lower Extremities (R,L) Lower extremity range of motion limited with pain Exma of left foot reveals no swelling, ecchymosis or deformity. There is generalized tanderness of the dorsum of the foot. Neurovascualr exam ofthe foot intact. Restricting ankle ROM reporting pain. Moves all digits. Refueing weight bearing. Father carried her in. Assessment Assessments Pain, foot (ICD-9 billing code: 729.5) Billing Detail Review and/or order of test in the radiology section of CPT; Review and/or order of test in the medicine section of CPT; Decision to obtain old record and/or history from someone other than the patient documented X-ray left foot reveals no acute fracture or corina abnormality. No change from previous film . Plan Patient Education Instructed on use of anti-inflammatory and anti-pyretics, Patient instructed on rest, ice, and elevation, Patient Education Information: Verbal information given to patient. Patient receptive and voiced understanding. No review needed., Patient education ELISA wrap applied with instructions provided.May wt bear as tolerated. Procedure Orders *XR Foot Complete 3 Views Routine (38921)(Performed - Pain, foot), Reason: Injured left foot after sliding down slide and [place]. Described hyperextension of ankle/foot with pain to the dorsum of foot. No swelling or bruising. Not wt bearing. Follow up With PCP if not resolving. Contributors to this Visit Note Documenting Clinician: Emily TO - Role: ERICH nurse; Motor Vehicle Assembler; Nurse; Procedure Stem Cleaning Machine Feeder; Referral Processor; Rx Processor Time: Jan 10 2011 09:11 Action: Amber TO - Role: ERICH nurse; Motor Vehicle Assembler; Nurse; Procedure Stem Cleaning Machine Feeder; Referral Processor; Rx Processor Time: Jan 10 2011 09:20 Action: Crista OLMOS - Role: Imaging Processor; Inspector Weights And Measures; Motor Vehicle Assembler; Web Art Director; Medical Records; Procedure Stem Cleaning Machine Feeder; Referral Processor Time: Jan 10 2011 09:30 Action: Crista BERNABE - Role: Clinician; ERICH physician; Stem Cleaning Machine Feeder Time: Jan 10 2011 09:59 Action: Crista BERNABE - Role: Clinician; ERICH physician; Stem Cleaning Machine Feeder Time: Jan 10 2011 09:59 Action: Sign documented in this encounter Plan of Treatment Not on file documented as of this encounter Visit Diagnoses Diagnosis Pain in limb documented in this encounter Care Teams Digital Printer Relationship Specialty Start Date End Date Kameron Davila MD PCP - General Family Medicine 03/27/14 documented as of this encounter
--- OUTSIDE RECORDS SUMMARY | 2025-08-03 00:06 | XMS_ITS | Encounter Summary ---
Author Organization [employer] Address [address] [place] [address] Care Team Providers Care Route Sales Delivery Driver Name Role Phone Kameron Davila MD Primary Care Provider [phone] [phone] Encounter Details Date Type Department Care Team (Late st Contact Info) Description 07/21/2011 Historical Office Visit [facility] environment [address] [address] Raymundo Pompa, PAMyra [address] [place] [address] Contact dermatitis and other eczema due to plants (except food) Social History Tobacco Use Types Packs/Day Years Used Date Smoking Tobacco: Never Assessed Comments Unknown Sex and Gender Information Value Date Recorded Sex Assigned at Not on file Legal Sex 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 Gender Identity Female 12/28/2020 10:43 PM CDT Sexual Orientation Straight 12/28/2020 10 :43 PM CDT documented as of this encounter Last Filed Vital Signs Vital Sign Reading Time Taken Comments Blood Pressure - - Pulse 84 07/21/2011 5:36 PM CDT Temperature 36.3 C (97.4 F) 07/21/2011 5:36 PM CDT Respiratory Rate 24 07/21/2011 5:36 PM CDT Oxygen Saturation - - Inhaled Oxygen Concentration - - Weight 24.9 kg (55 lb) 07/21/2011 5:36 PM CDT Height 128.3 cm (4' 2.5) 07/21/2011 5:36 PM CDT Body Mass Index 15.16 07/21/2011 5:36 PM CDT Body Mass Index Percentile 15.23% 07/21/2011 5:3 6 PM CDT Growth Chart: CDC (Girls, 2- 20 Years) documented in this encounter Progress Notes * Raymundo Pompa PA-C - 07/21/2011 5:32 PM CDT Nursing Chief Complaint/Reason For Encounter RASH Intake Note PATIENT PRESENTS AMBULATORY,A&O,SKIN W&D. FATHER RELATES HE STARTED DAUGHTER ON ZYRTEC FOR RUNNY NOSE. NOTICED DAUGHTER HAD A RASH DEVELOPING & UNSURE IF REALTED. RASH BEGUN APPROXIMATELY3-5 DAYS AGO. C/O ITCHING. Mode of arrival Walk Time of arrival 1725 Subjective HPI Pt with dad c/o pruritic rash onset 4 days ago after returning from weekend trip with mom. Pt was playing outside a lot and states playing in the leaves. Some areas have had oozing and crusing noted. No other new exposures known. No repiratory problems. Allergies NEOSPORIN: Rash; SHELLFISH Past Med/Surg History [...] Dates: 03/08/2002 Med List last modified Jul 21 2011 albuterol sulfate 2.5 mg/3 mL (0.083 %) Neb Solution, inhale per nebulizer by mouth as directed by doctor taking dexamethasone 4 mg Tab, 1 tab(s) by mouth daily, 4 tablet(s) prescribed triamcinolone acetonide 0.1 % Ointment, Apply to affected area(s) 2 times per day, 30 gm(s) prescribed Ventolin HFA 90 mcg/Actuation Aerosol Inhaler, 1 puff by mouth up to 3 times a day as needed for shortness of breath, 18 gm(s) taking discontinued discontinued discontinued discontinued discontinued Preferred Pharmacy [place], [place] ([place]) [[place], [address] [place] [address]] Family History last modified 01/03/2011 Positive Family History for: Asthma Bipolar disorder Breast cancer Depressive disorder Diabetes mellitus Hyperlipidemia Lung cancer Migraine Thyroid disorder Social History last modified 03/09/2011 Reviewed: 07/21/2011 Tobacco Never smoked; Tobacco reviewed with patient 07/21/2011 Alcohol Use Non-drinker Caffeine Use No caffeine use Drug Misuse No reported history Home Safety Risk No significant home safety risk factors; Seat belt worn consistently; Smoke detectors in home; Child safety seat use; Knows how to swim Personal: Ethnicity: Not ; Race: 1-White; Primary language: E; Marital status: Single; Multiple : No Review of systems Constitutional No fever, No chills, No abnormal weight gain, No abnormal weight loss, No fatigue ENT and Mouth No hearing loss, No ear pain, No rhinorrhea, No nasal discharge, No throat pain Respiratory No cough, No wheezing, No dyspnea, No Purulent sputum Gastrointestinal No nausea, No vomiting, No abdominal pain, No diarrhea, No constipation Integumentary Pruritus, Rash Objective Vital Signs Temp: *97.4 ??F (Other) [36.4??C] HR: 84 RR: 24 Height: 50.5 in [128.27 cm] Weight: 55 lb 0 oz lbs [ 24.948 kg ] BMI: 15.2 BSA: 0.952 Date/Time: Jul 21 2011 17:36 Physical Exam Constitutional Well groomed, Alert, No acute distress, Body habitus normal (General appearance), Well nourished Afebrile, nontoxic Cardiovascular Heart rate normal, Heart rhythm normal, Heart sounds normal, Heart murmur none, No lower extremity edema Respiratory Shape and symmetry of chest normal, Respiratory effort normal, Breath sounds normal, Breath sounds clear to auscultation, No rales, No rhonchi, No wheezing Integumentary Skin warm and dry, Rash, No bruises noted, Vesicles and blisters present Evidence of Infection No redness, No induration of skin, No warmth or tenderness to touch Erythamtous vessicular rash noted on legs, arms, abd, and neck with some areas oozing and crusting Neurologic Mentally alert, Normal gait Psych and mental status Alert, Recent and remote memory intact Assessment Assessments Dermatitis, plants (ICD-9 billing code: 692.6) Billing Detail Medication Management: New/current prescription meds Plan Patient Education Education on antihistamines and/or cold medicines, Pt instructed to rest and push fluids, Patient Education Information: Verbal information given to patient. Patient receptive and voiced understanding. No review needed. Medications discussed, no contraindications. Prescription Orders Rx Cart - Jul 21 2011 17:47 dexamethasone 4 mg Tab, 1 tab(s) by mouth daily, 4 tablet(s), No refills triamcinolone acetonide 0.1 % Ointment, Apply to affected area(s) 2 times per day, 30 gm(s), No refills Cart Status: Submitted Route: Electronic Rx Cart Order Notes: [facility] prescriptions to [place], [place] ([facility]) phone: [phone] fax: [phone] Message for Pharmacy: - Follow up Instructed patient to return within 24 to 48 hours if symptoms worsen or to follow up with primary care physician if sympoms not improved within 1 to 2 weeks Contributors to this Visit Note Documenting Clinician: Conrad CHAPIN - Role: Clinical Support; Residential Aide; Nurse; Procedure Sports Photographer; Referral Processor; Rx Processor Time: Jul 21 2011 17:32 Action: Amber CHAPIN - Role: Clinical Support; Residential Aide; Nurse; Procedure Sports Photographer; Referral Processor; Rx Processor Time: Jul 21 2011 17:39 Action: Crista POMPA - Role: REICH physician; Physician Etched Circuit Processor Time: Jul 21 2011 17:59 Action: Crista POMPA - Role: ERICH physician; Physician Etched Circuit Processor Time: Jul 21 2011 17:59 Action: Sign documented in this encounter Plan of Treatment Not on file documented as of this encounter Visit Diagnoses Diagnosis Contact dermatitis and other eczema due to plants (except food) documented in this encounter Care Teams Route Sales Delivery Driver Relationship Specialty Start Date End Date Kameron Davila MD PCP - General Family Medicine 03/27/14 documented as of this encounter
--- OUTSIDE RECORDS SUMMARY | 2025-08-03 00:06 | XMS_ITS | Encounter Summary ---
Author Organization [employer] [facility] Address [address] [place] [address] Care Team Providers Care Generation Engineer Name Role Phone Kameron Davila MD Primary Care Provider [phone] Encounter Details Date Type Department Care Team (Latest Contact Info) Description 03/09/2011 Historical Office Visit [facility] [address] [place] [address] Kameron Davila MD [address] [facility] [address] [place] [address] Cellulitis and abscess of leg, except foot Social History Tobacco Use Types Packs/Day Years Used Date Smoking Tobacco: Never Assessed Comments Unknown Sex and Gender Information Value Date Recorded Sex Assigned at Not on file 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 Gender Identity Female 12/28/2020 10:43 PM CDT Sexual Orientation Straight 12/28/2020 10 :43 PM CDT documented as of this encounter Last Filed Vital Signs Vital Sign Reading Time Taken Comments Blood Pressure 98/60 03/09/2011 8:13 AM CDT Pulse 88 03/09/2011 8:13 AM CDT Temperature 36.6 C (97.8 F) 03/09/2011 8:13 AM CDT Respiratory Rate 16 03/09/2011 8:13 AM CDT Oxygen Saturation - - Inhaled Oxygen Concentration - - Weight 23.8 kg (52 lb 6 oz) 03/09/2011 8:13 AM C DT Height 127 cm (4' 2) 03/09/2011 8:13 AM CDT Body Mass Index 14.73 03/09/2011 8:13 AM CDT Body Mass Index Percentile 11.48% 03/09/2011 8:1 3 AM CDT Growth Chart: CDC (Girls, 2- 20 Years) documented in this encounter Progress Notes * Kameron Davila MD - 03/09/2011 8:13 AM CDT Nursing Chief Complaint/Reason For Encounter rash to left leg Intake Note Pt here for left leg rash x 2 weeks, interemittent bilateral ear discomfort and occasional shortness of breath. Patient accompanied by: Relationship: father and sister Immunizations up to date, Not attending day care, Oxygen saturation 97%, Tobacco history reviewed and appropriate changes made to the Social History., Medication list given and reviewed with patient/family and voices understanding. Pediatric Pain Scale Oconnor-Vilchis pain scale - 0 Subjective HPI Carlos is brought to clinic today by her father for evaluation of a rash located on her left leg for the past 2 weeks. She has unknown exposures at this time, but complains of an extremely pruritic linear streaking rash located on the left leg. For the past 2 weeks they have been using topical bacitracin without significant benefit. The patient has been extremely irritated due to the rash. She continues to itch and scratch at it and now has developed to the point where there are multiple abrasions and scabs. The father at this point is not worried about cellulitis, but wonders if there should be something else treating the rash, since it is unresolved at this point. Denies previous exposures and denies any history of chronic skin problems. She has not been using any type of Benadryl or antihistamines. She has not used any type of topical lotions or creams. No local steroids. No other medicines besides the bacitracin. She denies any fevers or chills. She denies any chun leg pain. // Allergies NEOSPORIN: Rash; SHELLFISH Past Med/Surg History [...] SC; Dates: 03/08/2002 Med List last modified Mar 09 2011 albuterol sulfate 2.5 mg/3 mL (0.083 %) Neb Solution, inhale per nebulizer by mouth as directed by doctor taking nitrofurantoin oral unit 50 mg, 1 cap(s) by mouth before bedtime taking Triamcinolone Acetonide 0.1 % Topical Cream, Apply to affected area(s) 2 times per day, 15 gm(s) prescribed Ventolin HFA 90 mcg/Actuation Aerosol Inhaler, 1 puff by mouth up to 3 times a day as needed for shortness of breath, 18 gm(s) taking Preferred Pharmacy [place], [place] ([place]) [[place], [address] [place] [address]] Family History last modified 01/03/2011 Reviewed: 03/09/2011 Positive Family History for: Asthma Bipolar disorder Breast cancer Depressive disorder Diabetes mellitus Hyperlipidemia Lung cancer Migraine Thyroid disorder Social History last modified 03/09/2011 Reviewed: 03/09/2011 Tobacco Never smoked; Tobacco reviewed with patient 03/09/2011 Alcohol Use Non-drinker Caffeine Use No caffeine use Drug Misuse No reported history Home Safety Risk No significant home safety risk factors; Seat belt worn consistently; Smoke detectors in home; Child safety seat use; Knows how to swim Personal: Ethnicity: 1; Race: 1-White; Marital status: Single; Multiple : No Review of systems Constitutional No fever, Irritable, Up at night Respiratory No dyspnea, No wheezing Integumentary Rash Endocrine No fatigue Immunologic No sneezing Objective Vital Signs Temp: 97.8??F (Other) [36.6??C] HR: 88 RR: 16 Blood Pressure: 98/60 (L arm sitting Child cuff) Height: 50 in [127 cm] Weight: 52 lb 6 oz lbs [ 23.757 kg ] BMI: 14.7 SBP%: 47.9 DBP%: 53.5 BSA: 0.925 Pain Scale: 0/10 (Numeric) Other and Notes: SPO2-97% Date/Time: Mar 09 2011 08:13 Physical Exam Constitutional Alert in no acute distress., Well hydrated Extremities - Bilateral (R,L) No edema, joint swellng or acrocyanosis Integumentary Left leg shows a linear papular rash with multiple excoriations. The rash all seems to be in the same stages. There is a mild amount of erythema under the papules, and it appears the papules could have previously been vesicles. However, at this point it is very difficult to determine their etiology. The areas are somewhat sore and tender to palpation. There is no fluctuance noted. There is no weeping or draining. No bleeding. // Assessment Assessments Rash, nonvesicular (ICD-9 billing code: 782.1) Billing Detail Medication Management: New/current prescription meds Plan Prescription Orders Rx Cart - Mar 09 2011 08:29 Triamcinolone Acetonide 0.1 % Topical Cream, Apply to affected area(s) 2 times per day, 15 gm(s), No refills (Rash, nonvesicular) Cart Status: Submitted Route: Electronic Rx Cart Order Notes: S[facility]AN prescriptions to [place], [place] ([place]) phone: [phone] fax: [phone] Message for Pharmacy: - Contact dermatitis. Discussed natural history and treatment options with the father today. At this point, since she is 2 weeks out, and the lesions appear to be healing and are just slightly pruritic, I have recommended a topical steroid cream to trial for topical relief. If this does not significantly improve her symptoms over the next 2 to 3 days, I will go ahead and prescribe a steroid burst to try and minimize her reaction. The father is amendable to this and will follow up if her lesions are not significantly better next week or if they worsen at any time. // Contributors to this Visit Note Documenting Clinician: Brittany LEON - Role: Clinical; Nurse; Procedure Station Cleaning [place]; Referral Processor; Rx Processor Time: 2010 08:13 Action: Amber LEON - Role: Clinical; Nurse; Procedure Station Cleaning [place]; Referral Processor; Rx Processor Time: 2010 08:20 Action: Edit Brittany DAVILA - Role: Clinician; ERICH physician Time: Mar 09 2011 08:35 Action: Edit Brittany DAVILA - Role: Clinician; ERICH physician Time: Mar 09 2011 08:35 Action: Sign Brittany DAVILA - Role: Clinician; ERICH physician Time: Mar 10 2011 13:05 Action: Attest documented in this encounter Plan of Treatment Not on file documented as of this encounter Visit Diagnoses Diagnosis Cellulitis and abscess of leg, except foot documented in this encounter Care Teams Generation Engineer Relationship Specialty Start Date End Date Kameron Davila MD PCP - General Family Medicine 03/27/14 documented as of this encounter
--- OUTSIDE RECORDS SUMMARY | 2025-08-03 00:06 | XMS_ITS | Encounter Summary ---
Author Organization [email or web address] Address [address] [place] [address] Care Team Providers Care Hvac Residential Service Technician Name Role Phone Kameron Davila MD Primary Care Provider [phone] Encounter Details Date Type Department Care Team (Late st Contact Info) Description 01/03/2011 Historical Office Visit [facility] [place] [address] [place] [address] Sunny Hooper MD [address] [place] [address] Unspecified acute conjunctivitis Social History Tobacco Use Types Packs/Day Years Used Date Smoking Tobacco: Never Assessed Comments Unknown Sex and Gender Information Value Date Recorded Sex Assigned at Not on file 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 Gender Identity Female 12/28/2020 10:43 PM CDT Sexual Orientation Straight 12/28/2020 10 :43 PM CDT documented as of this encounter Last Filed Vital Signs Vital Sign Reading Time Taken Comments Blood Pressure - - Pulse 88 01/03/2011 9:36 AM CDT Temperature 37.2 C (99 F) 01/03/2011 9:36 AM CDT Respiratory Rate 20 01/03/2011 9:36 AM CDT Oxygen Saturation - - Inhaled Oxygen Concentration - - Weight 23.6 kg (52 lb) 01/03/2011 9:36 AM CDT Height - - Body Mass Index - - documented in this encounter Progress Notes * Sunny Hooper MD - 01/03/2011 9:31 AM CDT Nursing Chief Complaint/Reason For Encounter POSSIBLE PINK EYE Intake Note ADMITS TO RHINITIS AND SOME COUGH. LAST 3 DAYS WOKE WITH MATTER IN EYES AND BURNING. WORSE THIS AM Mode of arrival Walk, PCP [facility] AT [address] Time of arrival 0925 Subjective HPI The patient is a 10-year-old white female without significant medical history. Apparently, for the past week or so, she has had nasal congestion, runny nose, and a congested cough but over the past 24 hours, she had developed redness, discharge and drainage out of both eyes with some crusting discharge this morning so her father brought her to [facility] for further evaluation and treatment. She has not had any fever or chills. She has not had any significant ear pain, throat pain, cough or wheezing. /tr Allergies NEOSPORIN: Rash; SHELLFISH Past Med/Surg History [...] Dates: 03/08/2002 Med List last modified Jan 03 2011 albuterol sulfate 2.5 mg/3 mL (0.083 %) Neb Solution, inhale per nebulizer by mouth as directed by doctor taking nitrofurantoin oral unit 50 mg, 1 cap(s) by mouth before bedtime taking Trimethoprim-Polymyxin B 0.1 %-10,000 unit/mL Eye Drops, 2 drop(s) both eyes 4 times/day, 10 ml(s) prescribed Ventolin HFA 90 mcg/Actuation Aerosol Inhaler, 1 puff by mouth up to 3 times a day as needed for shortness of breath, 18 gm(s) taking Preferred Pharmacy [facility] [place], [place] ([place]) [[place], [address] [place] [address]] Family History last modified 01/03/2011 Reviewed: 01/03/2011 Positive Family History for: Asthma Bipolar disorder Breast cancer Depressive disorder Diabetes mellitus Hyperlipidemia Lung cancer Migraine Thyroid disorder Social History Personal: Ethnicity: 1; Race: White; Marital status: Single; Multiple : No Objective Vital Signs Temp: 99.0??F (Other) [37.3??C] HR: 88 RR: 20 Weight: 52 lbs [ 23.587 kg ] Pain Scale: 2/10 (Numeric) Location: EYES Frequency: Constant Duration: 2-3 DAYS Significant to Visit: Yes Date/Time: Jan 03 2011 09:36 In general, the child is active, alert and appropriate. She did not appear to be either toxic or dehydrated. HEENT: PERRLA. EOMs intact. Bilateral conjunctivae appeared to be erythematous and edematous with asmall amount of watery discharge. The sclerae were injected. Anterior chamber, lens and funduscopicexam appeared to be normal. There was no evidence of corneal abrasion or corneal foreign body. Bilateral TMs were clear. Pharynx was clear. Neck: No nodes. /tr Assessment Assessments Conjunctivitis (ICD-9 billing code: 372.30) Billing Detail Medication Management: New/current prescription meds Plan Patient Education Instructions given on antibiotic usage and side effects, Instructed on use of anti-inflammatory andanti-pyretics, Pt instructed to rest and push fluids, Patient Education Information: Verbal information given to patient. Patient receptive and voiced understanding. No review needed. Prescription Orders Rx Cart - Jan 03 2011 09:48 Trimethoprim-Polymyxin B 0.1 %-10,000 unit/mL Eye Drops, 2 drop(s) both eyes 4 times/day, 10 ml(s),No refills Cart Status: Submitted Route: Electronic Rx Cart Order Notes: [facility] prescriptions to [place], [place] ([place]) phone: [phone] fax: [phone] Message for Pharmacy: - Follow up Instructed patient to return within 24 to 48 hours if symptoms worsen or to follow up with primary care physician if sympoms not improved within 1 to 2 weeks Contributors to this Visit Note Documenting Clinician: Thuy SAENZ - Role: Imaging Processor; Window Glazier; Property Management Assistant; Spudder; Medical Records; Procedure Ragman; Referral Processor Time: Jan 03 2011 09:31 Action: Amber SAENZ - Role: Imaging Processor; Window Glazier; Property Management Assistant; Spudder; Medical Records; Procedure Ragman; Referral Processor Time: Jan 03 2011 09:32 Action: Crista CASTANEDA - Role: Property Management Assistant; Nurse; Procedure Ragman; Referral Processor; Rx Processor Time: Jan 03 2011 09:42 Action: Crista HOOPER - Role: Clinician; ERICH physician; Ragman Time: Jan 03 2011 09:53 Action: Crista HOOPER - Role: Clinician; ERICH physician; Ragman Time: Jan 03 2011 09:53 Action: America HOOPER - Role: Clinician; ERICH physician; Ragman Time: Jan 04 2011 13:07 Action: Attest documented in this encounter Plan of Treatment Not on file documented as of this encounter Visit Diagnoses Diagnosis Acute conjunctivitis, unspecified documented in this encounter Care Teams Hvac Residential Service Technician Relationship Specialty Start Date End Date Kameron Davila MD PCP - General Family Medicine 03/27/14 documented as of this encounter
--- OUTSIDE RECORDS SUMMARY | 2025-08-03 00:07 | XMS_ITS | Encounter Summary ---
Author Organization [employer] Address [address] [place] [address] Care Team Providers Care Tablet Making Machine Operator Helper Name Role Phone Kameron Davila MD Primary Care Provider [phone] Encounter Details Date Type Department Care Team (Latest Contact Info) Description 08/20/2010 Historical Office Visit [facility] Family Medicine [address] [place] [phone] Aris Mcdaniel, CABLE REPAIRER Dermatophytosis of groin and perianal area; Unspecified asthma; Dysuria; Need for prophylactic vaccination and inoculation against influenza Social History Tobacco Use Types Packs/Day Years Used Date Smoking Tobacco: Never Assessed Comments Unknown Sex and Gender Information Value Date Recorded Sex Assigned at Not on file Legal Sex 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 Gender Identity Female 12/28/2020 10:43 PM CDT Sexual Orientation Straight 12/28/2020 10 :43 PM CDT documented as of this encounter Last Filed Vital Signs Vital Sign Reading Time Taken Comments Blood Pressure 98/74 08/20/2010 9:53 AM 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 Pulse 98 08/20/2010 9:53 AM 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 Temperature 36.8 C (98.2 F) 08/20/2010 9:53 AM 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 Respiratory Rate - - Oxygen Saturation - - Inhaled Oxygen Concentration - - Weight 22.9 kg (50 lb 7 oz) 08/20/2010 9:[address] Height 123.2 cm (4' 0.5) 08/20/2010 9:53 AM 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 Body Mass Index 15.08 08/20/2010 9:53 AM 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 Body Mass Index Percentile 20.20% 08/20/2010 9:5 3 AM 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 Growth Chart: CDC (Girls, 2- 20 Years) documented in this encounter Plan of Treatment Not on file documented as of this encounter Visit Diagnoses Diagnosis Dermatophytosis of groin and perianal area Unspecified asthma(493.90) Unspecified asthma Dysuria Need for prophylactic vaccination and inoculation against influenza documented in this encounter Care Teams Tablet Making Machine Operator Helper Relationship Specialty Start Date End Date Kameron Davila MD PCP - General Family Medicine 03/27/14 documented as of this encounter
--- OUTSIDE RECORDS SUMMARY | 2025-08-03 00:07 | XMS_ITS | Encounter Summary ---
Author Organization [facility] Address [address] [place] [address] Care Team Providers Care Switchboard Operator Helper Name Role Phone Kameron Turk MD Primary Care Provider [phone] [phone] Encounter Details Date Type Department Care Team (Latest Contact Info) Description 11/07/2010 Historical Office Visit [facility] Medicine [address] [place] [address] Kameron Turk MD [address] [facility] [address] [place] [address] Acute pharyngitis Social History Tobacco Use Types Packs/Day Years Used Date Smoking Tobacco: Never Assessed Comments Unknown Sex and Gender Information Value Date Recorded Sex Assigned at Not on file Legal Sex Female 2:48 PM WAFER FAB TECHNICIAN Gender Identity Female 12/28/2020 10:43 PM CDT Sexual Orientation Straight 12/28/2020 10 :43 PM CDT documented as of this encounter Last Filed Vital Signs Vital Sign Reading Time Taken Comments Blood Pressure - - Pulse - - Temperature 36.4 C (97.5 F) 11/07/2010 9:41 AM WAFER FAB TECHNICIAN Respiratory Rate - - Oxygen Saturation - - Inhaled Oxygen Concentration - - Weight 23.3 kg (51 lb 4.8 oz) 11/07/2010 9:41 AM WAFER FAB TECHNICIAN Height - - Body Mass Index - - documented in this encounter Progress Notes * Kameron Turk MD - 11/07/2010 9:41 AM CST Nursing Chief Complaint/Reason For Encounter Sore throat Subjective HPI Maritza is a 9 yo female brought to the office by her father today for evaluation of 1 day h/o ST. also having some nasal congestion and cough. no fevers. still able to eat. some fatigue. no rash. no ear Sx. no eye Sx. no abd pains. no N/V. s/p tonsillectomy. no h/o strep since tonsillectomy. Also has a h/o recurrent UTIs. she was tested and treated earlier this month, but pt and father unsure if she took tato complete dose of meds. she has an appt to see peds uro next month. she still c/ooccasional dysuria. Allergies NEOSPORIN: Rash; SHELLFISH Past Med/Surg History [...] Dates: 03/08/2002 Med List last modified Nov 07 2010 albuterol sulfate 2.5 mg/3 mL (0.083 %) Neb Solution, inhale per nebulizer by mouth as directed by doctor taking Ventolin HFA 90 mcg/Actuation Aerosol Inhaler, 1 puff by mouth up to 3 times a day as needed for shortness of breath, 18 gm(s) taking discontinued Preferred Pharmacy [facility] [place] [[place], [address] [facility]] Social History Reviewed: 11/07/2010 Personal: Ethnicity: 1; Race: White; Primary language: E; Marital status: Single; Multiple : No Review of systems Constitutional No fever, Appetite normal, Sleeps well at night ENT No rhinorrhea, Throat pain, No ear pain, Congestion, No headache Respiratory Cough, Nonproductive cough, No dyspnea, No wheezing Gastrointestinal No abdominal pain, No nausea, No vomiting, No diarrhea Genitourinary Dysuria, Normal urine ouput Integumentary No rash Endocrine No fatigue Objective Vital Signs Temp: *97.5 ??F (Other) [36.4??C] Weight: 51.3 lbs [ 23.269 kg ] BMI: 15.3 (Height value used from 08/20/2010) BSA: 0.897 (Height value used from 08/20/2010) Pain Scale: 5/10 (Numeric) Location: throat Frequency: Constant Duration: 1 day Relieving Factors: n/a Significant to Visit: Yes Date/Time: Nov 07 2010 09:41 Physical Exam Constitutional Alert in no acute distress., Well hydrated Head Normocephalic. Atraumatic Eyes and Ears (R,L) Extra ocular motion intact. Pupils equal and reactive to light., Conjunctiva normal, Ear canal and TMs clear. Nose and Throat Nares patent., Oropharynx normal, Moist mucus membranes without erythema tonsills absent Neck Neck supple with no rigidity or significant lymphadenopathy. Cardiovascular S1, S2 present. Regular rate and rhythm. Respiratory Lungs clear to auscultation bilaterally Lymphatic (R,L) No significant lymphadenopthy found, No tender anterior cervical lymphadenopathy, No tender posterior cervical lymphadenopathy Gastrointestinal Abdomen is soft, not tender and not distended. No masses or hepatosplenomegaly. Integumentary No rashes found. Psych and mental status No abnormal psychiatric exam findings Assessment Assessments Dysuria (ICD-9 billing code: 788.1) Throat pain (ICD-9 billing code: 784.1) Billing Detail Review and/or order of lab tests Plan Lab Orders Rapid Strep Screen - YESENIA(YESENIA Resulted - Throat pain) Urinalysis with Microscopic (UA w/Micro)(Ordered - Dysuria) Patient education: pharyngitis, Call back in 48 hours if no better, Recheck PRN until next well child visit, Smoking history reviewed and appropriate changes made to the Social History., Medication list given and reviewed with patient/family and voices understanding. acute pharyngitis - likely viral based on neg strep and s/p tonsillectomy. supportive care. if not better and no help with tylenol, call for Rx of magic mouthwash. dysuria - will send for another UA today and treat if concerning for bacteria since unsure if completed previous meds. f/u with peds uro next month as scheudled. Contributors to this Visit Note Documenting Clinician: Brittany VARGAS - Role: Grocery Shopper; Procedure Oyster Bed Worker; Referral Processor; Rx Processor Time: Nov 07 2010 09:41 Action: Amber VARGAS - Role: Grocery Shopper; Procedure Oyster Bed Worker; Referral Processor; Rx Processor Time: Nov 07 2010 10:03 Action: Edsusy TURK - Role: Clinician; ERICH physician Time: Nov 07 2010 10:30 Action: Edsusy TURK - Role: Clinician; ERICH physician Time: Nov 09 2010 08:05 Action: Sign documented in this encounter Plan of Treatment Not on file documented as of this encounter Visit Diagnoses Diagnosis Acute pharyngitis documented in this encounter Care Teams Switchboard Operator Helper Relationship Specialty Start Date End Date Kameron Turk MD PCP - General Family Medicine 03/27/14 documented as of this encounter
--- OUTSIDE RECORDS SUMMARY | 2025-08-03 00:07 | XMS_ITS | Encounter Summary ---
Author Organization [facility] Address [address] [place] [address] Care Team Providers Care Radiation Therapy Technologist Name Role Phone Kameron Davila MD Primary Care Provider [phone] [phone] Encounter Details Date Type Department Care Team (Latest Contact Info) Description 07/08/2010 Historical Office Visit [address] [place] [address] Aris Mcdaniel, OIL AND GAS WELL TREATMENT OPERATOR Urinary tract infection, site not specified Social History Tobacco Use Types Packs/Day Years Used Date Smoking Tobacco: Never Assessed Comments Unknown Sex and Gender Information Value Date Recorded Sex Assigned at Not on file Legal Sex Female 2:48 PM EXPLOSIVES MIXER OPERATOR Gender Identity Female 12/28/2020 10:43 PM CDT Sexual Orientation Straight 12/28/2020 10 :43 PM CDT documented as of this encounter Last Filed Vital Signs Vital Sign Reading Time Taken Comments Blood Pressure 80/66 07/08/2010 2:00 PM CDT Pulse 92 07/08/2010 2:00 PM CDT Temperature 36.7 C (98 F) 07/08/2010 2:00 PM CDT Respiratory Rate - - Oxygen Saturation - - Inhaled Oxygen Concentration - - Weight 23.4 kg (51 lb 8 oz) 07/08/2010 2:00 PM C DT Height - - Body Mass Index - - documented in this encounter Plan of Treatment Not on file documented as of this encounter Visit Diagnoses Diagnosis Urinary tract infection, site not specified documented in this encounter Care Teams Radiation Therapy Technologist Relationship Specialty Start Date End Date Kameron Davila MD PCP - General Family Medicine 03/27/14 documented as of this encounter
--- OUTSIDE RECORDS SUMMARY | 2025-08-03 00:07 | XMS_ITS | Encounter Summary ---
Author Organization [employer] [facility] Address [address] [place] [address] Care Team Providers Care Napping Machine Operator Name Role Phone Kameron Davila MD Primary Care Provider [phone] [phone] Encounter Details Date Type Department Care Team (Latest Contact Info) Description 07/23/2011 Historical Office Visit [facility] Medicine [address] [place] [address] Zan Rivas MD Unspecified asthma; Rash and other nonspecific skin eruption Social History Tobacco Use Types Packs/Day Years Used Date Smoking Tobacco: Never Assessed Comments Unknown Sex and Gender Information Value Date Recorded Sex Assigned at Not on file Legal Sex Female 2:48 PM PARK INTERPRETIVE SPECIALIST Gender Identity Female 12/28/2020 10:43 PM CDT Sexual Orientation Straight 12/28/2020 10 :43 PM CDT documented as of this encounter Last Filed Vital Signs Vital Sign Reading Time Taken Comments Blood Pressure 104/70 07/23/2011 2:25 PM CDT Pulse 88 07/23/2011 2:25 PM CDT Temperature 36.4 C (97.5 F) 07/23/2011 2:25 PM CDT Respiratory Rate - - Oxygen Saturation - - Inhaled Oxygen Concentration - - Weight 25.9 kg (57 lb) 07/23/2011 2:25 PM CDT Height - - Body Mass Index 15.71 07/21/2011 5:36 PM CDT Body Mass Index Percentile 23.85% 07/23/2011 2:2 5 PM CDT Growth Chart: [facility] (Girls, 2- 20 Years) documented in this encounter Progress Notes * Zan Rivas MD - 07/23/2011 2:25 PM CDT Nursing Chief Complaint/Reason For Encounter RASH X 1WEEK/ITCHY/NO PAIN: Tobacco history reviewed and appropriate changes made [...] Dates: 03/08/2002 Med List last modified Jul 23 2011 albuterol sulfate 2.5 mg/3 mL (0.083 %) Neb Solution, inhale per nebulizer by mouth as directed by doctor taking dexamethasone 4 mg Tab, 1 tab(s) by mouth daily, 4 tablet(s) taking triamcinolone acetonide 0.1 % Ointment, Apply to affected area(s) 2 times per day, 30 gm(s) taking Ventolin HFA 90 mcg/Actuation Aerosol Inhaler, 1 puff by mouth up to 3 times a day as needed for shortness of breath, 18 taking Preferred Pharmacy [facility] [place] [[place], [address] [facility]] Family History last modified Jan 03 2011 Positive Family History for: Asthma Bipolar disorder Breast cancer Depressive disorder Diabetes mellitus Hyperlipidemia Lung cancer Migraine Thyroid disorder Social History last modified Mar 09 2011 Tobacco Never smoked Personal: Ethnicity: Not ; Race: WHITE; Primary language: MACEDONIAN; Marital status: Single; Employer: NONE Objective Vital Signs Temp: *97.5 ??F (Skin) [36.4??C] HR: 88 bpm Blood Pressure: 104/70 mmHg (L arm sitting Adult-std cuff) Weight:57 lbs [25.855 kg ](3.5 percentile) BMI: 15.7 (23.7 percentile) BSA: 0.966 (Height value used from 07/21/2011) Pain Scale: 0/10 (Numeric) Date/Time: Jul 23 2011 14:25 Assessment Assessments Asthma (ICD-9 billing code: 493.90) Asthma, acute exacerbation (ICD-9 billing code: 493.92) Billing Detail Medication Management: New/current prescription meds S: Rash. She is here with her dad. She was recently seen at a [facility]. Etiology is unknown. It is pruritic and non-vesiculated. She has also had a history of low-level asthma symptoms; nothing recently. O: General: Pleasant young lady. HEENT: Oropharynx: Moodus and moist. Tympanic membranes are clear bilaterally. Cardiovascular: Regular rate and rhythm, without murmur, S1 and S2 heard. No S3. No rub. No gallop. Respiratory: Clear to auscultation without rales, wheezes, or crackles. GI: Abdomen: Soft, nontender. Skin: Low-level non-vesiculated, erythematous, blanchable rash. A: Rash, etiology unknown. Possible contact dermatitis. P: DX: None. TX: See EMR. ED: I recommended dermatological referral. The patient's father, who was present today, verbalized understanding of above plan. Otherwise, continue present management. //ed Plan Prescription Orders Rx Cart - Jul 23 2011 14:36 albuterol sulfate 2.5 mg/3 mL (0.083 %) Neb Solution, One neb every 4 to 6 hours as needed for asthma excerbation , dispense a box of 25 vials , 3 ml, 6 refills (Asthma) Ventolin HFA 90 mcg/Actuation Aerosol Inhaler, 1 puff by mouth up to 3 times a day as needed for shortness of breath, 18 gm(s), 3 refills (Asthma, acute exacerbation) Cart Status: Submitted Route: Electronic Rx Cart Order Notes: [facility] prescriptions to [place], [place] ([place]) phone: [phone] fax: [phone] Message for Pharmacy: -: Patient Education Information: Written and verbal information given to patient. Patient receptive and voiced understanding. No review needed. Contributors to this Visit Note Documenting Clinician: Leti ROJAS - Staff Type: NONE Time: Jul 23 2011 14:25 Action: Amber ROJAS - Staff Type: NONE Time: Jul 23 2011 14:29 Action: Edit Leti RIVAS - Staff Type: Physician Time: Aug 15 2011 21:49 Action: Crista RIVAS - Staff Type: Physician Time: Aug 15 2011 21:49 Action: Sign Leti RIVAS - Staff Type: Physician Time: Aug 23 2011 02:58 Action: Attest documented in this encounter Plan of Treatment Not on file documented as of this encounter Visit Diagnoses Diagnosis Unspecified asthma(493.90) Unspecified asthma Rash and other nonspecific skin eruption documented in this encounter Care Teams Napping Machine Operator Relationship Specialty Start Date End Date Kameron Davila MD PCP - General Family Medicine 03/27/14 documented as of this encounter
--- OUTSIDE RECORDS SUMMARY | 2025-08-03 00:07 | XMS_ITS | Encounter Summary ---
Author Organization [employer] Address [address] [place] [address] Care Team Providers Care Air Conditioner Installer Helper Name Role Phone Kameron Davila MD Primary Care Provider [phone] [phone] Encounter Details Date Type Department Care Team (Late st Contact Info) Description 07/16/2010 Historical Office Visit [facility] Family Medicine [address] [place] [address] Zan Rivas MD Dysuria Social History Tobacco Use Types Packs/Day Years Used Date Smoking Tobacco: Never Assessed Comments Unknown Sex and Gender Information Value Date Recorded Sex Assigned at Not on file Legal Sex Female 2:48 PM SALVAGER HELPER Gender Identity Female 12/28/2020 10:43 PM CDT Sexual Orientation Straight 12/28/2020 10 :43 PM CDT documented as of this encounter Last Filed Vital Signs Vital Sign Reading Time Taken Comments Blood Pressure - - Pulse 96 07/16/2010 3:10 PM CDT Temperature 36.7 C (98 F) 07/16/2010 3:10 PM CDT Respiratory Rate 20 07/16/2010 3:10 PM CDT Oxygen Saturation - - Inhaled Oxygen Concentration - - Weight 23.5 kg (51 lb 14.4 oz) 07/16/2010 3:10 P M CDT Height 122.6 cm (4' 0.25) 07/16/2010 3:10 PM CD T Body Mass Index 15.67 07/16/2010 3:10 PM CDT Body Mass Index Percentile 32.01% 07/16/2010 3:1 0 PM CDT Growth Chart: CDC (Girls, 2- 20 Years) documented in this encounter Plan of Treatment Not on file documented as of this encounter Visit Diagnoses Diagnosis Dysuria documented in this encounter Care Teams Air Conditioner Installer Helper Relationship Specialty Start Date End Date Kameron Davila MD PCP - General Family Medicine 03/27/14 documented as of this encounter
--- OUTSIDE RECORDS SUMMARY | 2025-08-03 00:07 | XMS_ITS | Encounter Summary ---
Author Organization [email or web address] Address [address] [place] [address] Care Team Providers Care Prop Making Supervisor Name Role Phone Kameron Davila MD Primary Care Provider [phone] [phone] Encounter Details Date Type Department Care Team (Latest Contact Info) Description 06/08/2010 Historical Office Visit [address] [place] [address] Zan Rivas MD Contact dermatitis and other eczema, due to unspecified cause Social History Tobacco Use Types Packs/Day Years Used Date Smoking Tobacco: Never Assessed Comments Unknown Sex and Gender Information Value Date Recorded Sex Assigned at Not on file Legal Sex Female 2:48 PM ANATOMY PROFESSOR Gender Identity Female 12/28/2020 10:43 PM CDT Sexual Orientation Straight 12/28/2020 10 :43 PM CDT documented as of this encounter Last Filed Vital Signs Vital Sign Reading Time Taken Comments Blood Pressure - - Pulse 80 06/08/2010 11:23 AM CDT Temperature 36.8 C (98.2 F) 06/08/2010 11:23 AM CDT Respiratory Rate 20 06/08/2010 11:23 AM CDT Oxygen Saturation - - Inhaled Oxygen Concentration - - Weight 22.7 kg (50 lb) 06/08/2010 11:23 AM CDT Height - - Body Mass Index - - documented in this encounter Plan of Treatment Not on file documented as of this encounter Visit Diagnoses Diagnosis Contact dermatitis and other eczema, due to unspecified cause documented in this encounter Care Teams Prop Making Supervisor Relationship Specialty Start Date End Date Kameron Davila MD PCP - General Family Medicine 03/27/14 documented as of this encounter
--- OUTSIDE RECORDS SUMMARY | 2025-08-03 00:08 | XMS_ITS | Encounter Summary ---
Author Organization [facility] Address [address] [place] [address] Care Team Providers Care National Accounts Sales Name Role Phone Kameron Davila MD Primary Care Provider [phone] [phone] Encounter Details Date Type Department Care Team (Late st Contact Info) Description 10/21/2010 Historical Office Visit [facility] Family [address] [place] [address] Zan Rivas MD Social History Tobacco Use Types Packs/Day Years Used Date Smoking Tobacco: Never Assessed Comments Unknown Sex and Gender Information Value Date Recorded Sex Assigned at Not on file Legal Sex Female 2:48 PM PARENT PARTNER Gender Identity Female 12/28/2020 10:43 PM CDT Sexual Orientation Straight 12/28/2020 10 :43 PM CDT documented as of this encounter Progress Notes * Zan Rivas MD - 10/21/2010 4:02 PM CST Additional Note Plan Prescription Orders Rx Cart - Oct 21 2010 17:54 Cleocin 75 mg Cap, one pill by mouth three times a day , 15 capsule(s), No refills (Dysuria) Cart Status: Submitted Route: Print Rx Cart Order Notes: Contributors to this Visit Note Documenting Clinician: Leti RIVAS - Role: Clinician; ERICH physician; Ripening Room Attendant Time: Oct 21 2010 16:02 Action: Amber RIVAS - Role: Clinician; ERICH physician; Ripening Room Attendant Time: Oct 21 2010 22:38 Action: Crista RIVAS - Role: Clinician; ERICH physician; Ripening Room Attendant Time: Oct 21 2010 22:38 Action: America RIVAS - Role: Clinician; ERICH physician; Ripening Room Attendant Time: Oct 24 2010 16:27 Action: Attest Telephone conversation: I spoke with Dr. Carcamo, pediatric urologist; 10,000 CFU of group A strep. Although the child is not symptomatic at this time, may warrant treating with clindamycin at approximately 10 mg per kilo, 75 mg p.o. t.i.d. for 5 days and then see if she has any change in her symptoms. I then spoke with Maren, the patient's mom. The child is set up for an x-ray and renal ultrasound and to see Dr. Carcamo in the near future. She will use clindamycin, which will be called into [facility]. If dysuria symptoms or vaginitis symptoms to [id number]. The patient's mom is aware of the above plan. Otherwise, continue present management. //ed documented in this encounter Plan of Treatment Not on file documented as of this encounter Visit Diagnoses Not on filedocumented in this encounter Care Teams National Accounts Sales Relationship Specialty Start Date End Date Kameron Davila MD PCP - General Family Medicine 03/27/14 documented as of this encounter
--- OUTSIDE RECORDS SUMMARY | 2025-08-03 00:08 | XMS_ITS | Encounter Summary ---
Author Organization [employer] [facility] Address [address] [place] [id number] Care Team Providers Care Animal Geneticist Name Role Phone Kameron Davila MD Primary Care Provider [phone] Encounter Details Date Type Department Care Team (Late st Contact Info) Description 07/30/2013 Historical Office Visit [facility] Medicine [address] [place] [address] Zan Rivas MD Acute bronchitis Social History Tobacco Use Types Packs/Day Years Used Date Smoking Tobacco: Never Assessed Comments Unknown Sex and Gender Information Value Date Recorded Sex Assigned at Not on file Legal Sex Female 2:48 PM ENROUTE CONTROLLER Gender Identity Female 12/28/2020 10:43 PM CDT Sexual Orientation Straight 12/28/2020 10 :43 PM CDT documented as of this encounter Last Filed Vital Signs Vital Sign Reading Time Taken Comments Blood Pressure 108/68 07/30/2013 4:24 PM CDT Pulse 123 07/30/2013 4:24 PM CDT Temperature 36.9 C (98.4 F) 07/30/2013 4:24 PM CDT Respiratory Rate 24 07/30/2013 4:24 PM CDT Oxygen Saturation - - Inhaled Oxygen Concentration - - Weight 32.7 kg (72 lb 1 oz) 07/30/2013 4:24 PM C DT Height - - Body Mass Index - - documented in this encounter Progress Notes * Zan Rivas MD - 07/30/2013 4:24 PM CDT Nursing Chief Complaint/Reason For Encounter wheezing/cough/etc. Quality Metrics Influenza vaccination up-to-date? No. Depression Screening date: 07/30/2013. : No Refills needed Subjective HPI Pt's mother states that on Tuesday she started coughing has head congestion, wheezing, headache, temp and fatigue. Pt states that she has trouble sleeping because of the coughing. Pt has been using the inhaler-12 puffs since 10 pm. Pt's albuterol for the neb is . Pt does have exercised-induced asthma as well as allergy-induced. Pt's temp was 102 degrees today. I (CHAN) scribed for Dr Rivas during the interview of HPI and physical exam (Yes RA) Allergies last modified Jul 30 2013 Reviewed: Jul 30 2013 Chicken Derived: Hives; eggs: Hives; NEOSPORIN: Rash; SHELLFISH Past Med/Surg History Problems Acute bronchospasm (1); First Visit: Jul 30 2012, Last Visit: Jul 30 2012 Administrative encounter - RA CK Advice/health instruction (1); First Visit: Aug 20 2010, Last Visit: Aug 20 2010 Allergic rhinitis (4); First Visit: Feb 13 2008, Last Visit: May 15 2013 Asthma (3); First Visit: Jul 23 2011, Last Visit: May 15 2013 Asthma, acute exacerbation (4); First Visit: Feb 16 2007, Last Visit: Jan 14 2012 Atopic dermatitis (3); First Visit: Aug 04 2011, Last Visit: May 15 2013 Cough (1); First Visit: Jul 30 2012, Last Visit: Jul 30 2012 Well child check (1); First Visit: May 15 2013, Last Visit: May 15 2013 Past Med/Surg History Procedures * 1. Initial [...] Dates: 03/08/2002 Med List last modified Jul 31 2013 Reviewed: Jul 30 2013 albuterol sulfate 2.5 mg/3 mL (0.083 %) Neb Solution, Inhale via nebulizer as directed taking Children's Claritin 5 mg Chewable Tab, 1 cap(s) by mouth daily taking Nasonex 50 mcg/actuation [place], 1 spray(s) each nostril daily taking Ventolin HFA 90 mcg/Actuation Aerosol Inhaler, 1 puff by mouth up to 3 times a day as needed for shortness of breath, 18 taking Zyrtec 10 mg Chewable Tab, 1 tab(s) by mouth before bedtime taking Preferred Pharm[place], [place] [place] [[place], [address] [facility]] Family History last modified Jan 03 2011 Reviewed: Jul 30 2013 Positive Family History for: Asthma Bipolar disorder Breast cancer Depressive disorder Diabetes mellitus Hyperlipidemia Lung cancer Migraine Thyroid disorder Social History last modified Jul 30 2013 Reviewed: Jul 30 2013 Tobacco Never smoked; Never used smokeless; Exposure to smoking No exposure to environmental tobacco smoke; Tobacco reviewed with patient 07/30/2013 Alcohol Use Non-drinker Caffeine Use No caffeine use Drug Misuse No reported history Home Safety Risk No significant home safety risk factors; Seat belt worn consistently; Smoke detectors in home; Child safety seat use; Knows how to swim Personal: Ethnicity: Not ; Race: WHITE; Primary language: MARSHALLESE; Marital status: Single; Employer: NONE Review of systems General: Fever, No Chills, Sweats, Anorexia, Fatigue, No Malaise, No Weight loss, No Weight gain, Headaches ENT (R,L): No Earache, No Ear discharge, No Tinnitus, No Decreased hearing, Nasal congestion, No Nosebleeds, Sore throat, Hoarseness, No Dysphagia, Sneezing Cardiovascular: Chest pain, No Palpitations, No Syncope, Dyspnea on exertion, No Orthopnea, No PND,No Peripheral Edema, No Nocturia Respiratory: Cough, Dyspnea, No Excessive sputum, No Hemoptysis, Wheezing Objective Vital Signs Other and Notes: Pulse ox-95% (resting); 93% (walking) Date/Time: Jul 30 2013 16:27 Temp: 98.4??F (Skin) [36.9??C] HR: 123 bpm RR: 24 Blood Pressure: 108/68 mmHg (R arm sitting Adult-std cuff) Weight:72 lb 1 oz lbs [32.687 kg ](4.0 percentile) BMI: 16.4 (18.4 percentile) BSA: 1.143 (Height value used from 05/15/2013) Pain Scale: 5/10 (Numeric) Location: chest Significant to Visit: Yes Date/Time: Jul 30 2013 16:24 Physical Exam Constitutional: Well groomed, Alert, No acute distress, Body habitus normal, Well nourished glasses Eyes (R,L): Pupils equal and reactive, Conjunctiva normal, Sclera normal, Eyelid normal ENT: Nasal septum normal, Nasal turbinates normal, Nasal mucosa normal, Oropharynx normal, Gingiva normal, Dentition normal Ears (R,L): External ear normal, Ear canal normal, Tympanic membrane normal Neck: Neck symmetric, Neck mass absent Cardiovascular: Normal S1, Normal S2, No S3, No heart murmur found Cardiovascular Bilateral (R,L): No carotid bruit Respiratory: Normal respiratory effort, Breath sounds normal, No wheezing heard, Clear to auscultation without rales or rhonchi Integumentary: Skin warm and dry, Skin color normal Neurologic: Normal Gait, Cranial nerves II-XII grossly intact, No obvious motor or sensory deficit,No foot drop, No Cauda Equina symptoms, No meningeal signs, No Nuchal Rigidity Neuro bilateral (R,L): Normal light touch sensation Assessment Assessments Asthma (ICD-9 billing code: 493.90) A total of 20 minutes was spent in direct patient contact. Billing Detail Medication Management: New/current prescription meds Plan Prescription Orders Rx Cart - Jul 31 2013 07:58 albuterol sulfate 2.5 mg/3 mL (0.083 %) Neb Solution, Inhale via nebulizer as directed, *Samples Given Lot #:[id number] Expiration Date:12/2013, 3 ml, No refills (Asthma) Cart Status: Submitted Route: Phone Rx Cart Order Notes: Phone prescriptions to *[facility] phone: fax: [phone] Rx Cart - Jul 30 2013 17:14 albuterol sulfate 2.5 mg/3 mL (0.083 %) Neb Solution, 1 neb treatment up to 3 x day as needed, 3 ml(s), 3 refills (Asthma) azithromycin 250 mg tablet, 1 TAB BY MOUTH DAILY FOR FIVE DAYS, 10 tablet(s), No refills prednisone 10 mg tablet, 1 tab by mouth daily x 10 days, 20 tablet(s), No refills Cart Status: Submitted Route: Phone Rx Cart Order Notes: Phone [facility] [place] [id number] phone: [phone] fax: Other Orders 1. Pt is to see Mohini Quigley for evaluation and treatment of asthma. If not able to address potential asthma to call our office for referral to Dr Ly Malave's office for eval and treat. RA Future Care Plan She felt like she had increased air exchange after the neb treatment. No gym class this week. I DW Mom Dad and Maternal Grandmother who were present today if respiratory distress to SMA They verbalized understanding RA Patient Education: Patient reports no chest pain or pressure, No Syncope or Presyncope, No Arrythmia, NO TIA, CVA OR Angina symptoms. No respiratory distress., Patient verbalizes understanding of above and will seek medical attention if signs and symptoms occur., Patient Education Information: Written and verbal information given to patient. Patient receptive and voiced understanding. No review needed. Recheck: Recheck near future May continue medications for chronic conditions until next scheduled visit., Continue current medications Team Care Documentation: I, KK yes RA , have documented as a scribe for Dr. Zan Rvias in the following sections of this encounter:, history of present illness, physical exam, assessment, plan Contributors to this Visit Note Documenting Clinician: Leti MENDIETA - Staff Type: [place] Time: Jul 30 2013 16:24 Action: Amber MENDIETA - Staff Type: FEDERICA Time: Jul 30 2013 17:15 Action: Crista Gomez Staff Type: Time: Jul 31 2013 23:50 Action: Crista Gomez Staff Type: Time: Jul 31 2013 23:50 Action: Sign documented in this encounter Plan of Treatment Not on file documented as of this encounter Visit Diagnoses Diagnosis Acute bronchitis documented in this encounter Care Teams Animal Geneticist Relationship Specialty Start Date End Date Kameron Davila MD PCP - General Family Medicine 03/27/14 documented as of this encounter
--- OUTSIDE RECORDS SUMMARY | 2025-08-03 00:08 | XMS_ITS | Encounter Summary ---
Author Organization [facility] [employer] [facility] Address [address] [place] [address] Care Team Providers Care Fan Runner Name Role Phone Kameron Davila MD Primary Care Provider [phone] Encounter Details Date Type Department Care Team (Late st Contact Info) Description 09/25/2010 Historical Office Visit [facility] Family Medicine [address] [place] [address] Zan Rivas MD Dysuria Social History Tobacco Use Types Packs/Day Years Used Date Smoking Tobacco: Never Assessed Comments Unknown Sex and Gender Information Value Date Recorded Sex Assigned at Not on file 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 Sex 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 Gender Identity Female 12/28/2020 10:43 PM CDT Sexual Orientation Straight 12/28/2020 10 :43 PM CDT documented as of this encounter Last Filed Vital Signs Vital Sign Reading Time Taken Comments Blood Pressure 90/60 09/25/2010 3:53 PM SUPERINTENDENT WAREHOUSE Pulse 96 09/25/2010 3:53 PM SUPERINTENDENT WAREHOUSE Temperature 36.8 C (98.2 F) 09/25/2010 3:53 PM SUPERINTENDENT WAREHOUSE Respiratory Rate - - Oxygen Saturation - - Inhaled Oxygen Concentration - - Weight 23.1 kg (51 lb) 09/25/2010 3:53 PM SUPERINTENDENT WAREHOUSE Height - - Body Mass Index - - documented in this encounter Plan of Treatment Not on file documented as of this encounter Visit Diagnoses Diagnosis Dysuria documented in this encounter Care Teams Fan Runner Relationship Specialty Start Date End Date Kamerno Davila MD PCP - General Family Medicine 03/27/14 documented as of this encounter
--- OUTSIDE RECORDS SUMMARY | 2025-08-03 00:08 | XMS_ITS | Encounter Summary ---
Author Organization [facility] Address [address] [place] [address] Care Team Providers Care Editorial Writer Name Role Phone Kameron Davila MD Primary Care Provider [phone] [phone] Encounter Details Date Type Department Care Team (Latest Contact Info) Description 01/21/2014 Historical Office Visit [facility] Medicine [address] [place] [address] Kameron Davila MD [address] [facility] [address] [place] [address] Depressive disorder, not elsewhere classified Social History Tobacco Use Types Packs/Day Years Used Date Smoking Tobacco: Never Assessed Comments Unknown Sex and Gender Information Value Date Recorded Sex Assigned at Not on file Legal Sex Female 2:48 PM BAKER BENCH Gender Identity Female 12/28/2020 10:43 PM CDT Sexual Orientation Straight 12/28/2020 10 :43 PM CDT documented as of this encounter Last Filed Vital Signs Vital Sign Reading Time Taken Comments Blood Pressure 120/88 01/21/2014 2:19 PM CDT Pulse 84 01/21/2014 2:19 PM CDT Temperature 36.7 C (98 F) 01/21/2014 2:19 PM CDT Respiratory Rate - - Oxygen Saturation - - Inhaled Oxygen Concentration - - Weight 35.5 kg (78 lb 5 oz) 01/21/2014 2:19 PM C DT Height - - Body Mass Index - - documented in this encounter Progress Notes * Kameron Davila MD - 01/21/2014 2:19 PM CDT Nursing Chief Complaint/Reason For Encounter Pt is here to f/u on her anxiety/mood disorder Intake Note Pt is amb to the office with sister and grandmother Deborah AGUDELO Leti presents to clinic today with her mother and father for followup evaluation of anxiety depression and mood disorder. Overall again he states she is doing very well and has noted a significant improvement in her cheerfulness. She takes her medications as directed and has occasional headaches aswell as fatigue. She denies any major other side effects. She does believe the medicine continues to help her and she does better in school. Mom and dad state that overall she is acting better and has less explosive outbursts than previous. They are overall also happy with her current progress and would like to continue the medication. Leti continues to see a counselor and is doing very well and happy with his progress. Overall she feels good and does not feel medication changes are necessary at this point. Allergies Reviewed: Jan 21 2014 Chicken Derived: Hives; eggs: Hives; NEOSPORIN: Rash; SHELLFISH Past Med/Surg History Problems Acute bronchospasm (1); First Visit: Jul 30 2012, Last Visit: Jul 30 2012 Administrative encounter - RA CK Advice/health instruction (1); First Visit: Aug 20 2010, Last Visit: Aug 20 2010 Allergic rhinitis (4); First Visit: Feb 13 2008, Last Visit: May 15 2013 Asthma (4); First Visit: Jul 23 2011, Last Visit: Jul 30 2013 Asthma, acute exacerbation (4); First Visit: [...] Ed Learning Preference (2); Last Performed: 02/13/2008 Med List last modified Jan 21 2014 Reviewed: Jan 21 2014 albuterol sulfate 2.5 mg/3 mL (0.083 %) Neb Solution, 1 neb treatment up to 3 x day as needed, 3 ml(s) taking Children's Claritin 5 mg Chewable Tab, 1 cap(s) by mouth daily taking fluoxetine 10 mg capsule, 1 capsule(s) by mouth daily before noon, 30 capsule(s) taking Nasonex 50 mcg/actuation [place], 1 spray(s) each nostril daily taking Ventolin HFA 90 mcg/Actuation Aerosol Inhaler, 1 puff by mouth up to 3 times a day as needed for shortness of breath, 18 taking Zyrtec 10 mg Chewable Tab, 1 tab(s) by mouth before bedtime taking Preferred Pharmacy [facility]) [[place], [address] [facility]] Family History last modified Jan 03 2011 Positive Family History for: Asthma Bipolar disorder Breast cancer Depressive disorder Diabetes mellitus Hyperlipidemia Lung cancer Migraine Thyroid disorder Social History last modified Jul 30 2013 Tobacco Never smoked; Never used smokeless; Exposure to smoking No exposure to environmental tobacco smoke; Tobacco reviewed with patient 01/21/2014 Personal: Ethnicity: Not ; Race: WHITE; Primary language: CYPRIOT; Marital status: Single; Employer: NONE Review of systems General: Fatigue Psychiatric: No Depression, No Anxiety, No Suicidal Ideation, No Lack of pleasure, No Change in sleeping patterns, No Increasing isolation, Not at risk for violence Objective Vital Signs Temp: 98??F (Other) [36.7??C] HR: 84 bpm Blood Pressure: 120/88 mmHg (L arm sitting Adult-std cuff) Weight:78 lb 5 oz lbs [35.522 kg ](6.3 percentile) Date/Time: Jan 21 2014 14:19 Physical Exam Constitutional: Well nourished, No acute distress, Body habitus normal Psych and mental status: Alert, Oriented x3, Does not appears anxious, No signs of depressed mood, Judgement not impaired, Insight not impaired Assessment Assessments Episodic mood disorder (ICD-9 billing code: 296.90) Billing Detail Medication Management: New/current prescription meds Plan Prescription Orders Rx Cart - Jan 21 2014 16:59 fluoxetine 10 mg capsule, 1 capsule(s) by mouth daily before noon, 30 capsule(s), 6 refills Cart Status: Submitted Route: Electronic Rx Cart Order Notes: SLOAN prescriptions to [facility]) [facility] [place] [id number] phone: [phone] fax: [phone] Message for Pharmacy: - Mood disorder. He is very stable on her current medications and doing well over the past 4 weeks. Since she continues to do well we will allow her to continue on her current medications and I highlyrecommended that she continue her counseling. She will followup in 3 months for ongoing evaluation and treatment. Contributors to this Visit Note Documenting Clinician: Brittany MAI - Staff Type: MOA Time: Jan 21 2014 14:19 Action: Amber MAI - Staff Type: MOA Time: Jan 21 2014 14:21 Action: Edit Brittany DAVILA - Staff Type: MD Time: Jan 21 2014 16:59 Action: Edit Brittany DAVILA - Staff Type: Time: Jan 21 2014 16:59 Action: Sign documented in this encounter Plan of Treatment Not on file documented as of this encounter Visit Diagnoses Diagnosis Depressive disorder, not elsewhere classified documented in this encounter Care Teams Editorial Writer Relationship Specialty Start Date End Date Kameron Davila MD PCP - General Family Medicine 03/27/14 documented as of this encounter
--- OUTSIDE RECORDS SUMMARY | 2025-08-03 00:09 | XMS_ITS | Encounter Summary ---
Author Organization [facility] Address [address] [place] [address] Care Team Providers Care Plant Director Name Role Phone Kameron Davila MD Primary Care Provider [phone] Encounter Details Date Type Department Care Team (Latest Contact Info) Description 10/18/2013 Historical Office Visit [facility] [address] [address] Rajani Allen MD Abdominal pain, right upper quadrant; Other and unspecified noninfectious gastroenteritis and colitis Social History Tobacco Use Types Packs/Day Years Used Date Smoking Tobacco: Never Assessed Comments Unknown Sex and Gender Information Value Date Recorded Sex Assigned at Not on file Legal Sex Female 2:48 PM CIVIL PREPAREDNESS COORDINATOR Gender Identity Female 12/28/2020 10:43 PM CDT Sexual Orientation Straight 12/28/2020 10 :43 PM CDT documented as of this encounter Last Filed Vital Signs Vital Sign Reading Time Taken Comments Blood Pressure - - Pulse 118 10/18/2013 6:10 PM CIVIL PREPAREDNESS COORDINATOR Temperature 36.9 C (98.5 F) 10/18/2013 6:10 PM CIVIL PREPAREDNESS COORDINATOR Respiratory Rate - - Oxygen Saturation - - Inhaled Oxygen Concentration - - Weight 33.4 kg (73 lb 9.6 oz) 10/18/2013 6:10 PM CIVIL PREPAREDNESS COORDINATOR Height 144.8 cm (4' 9) 10/18/2013 6:10 PM CIVIL PREPAREDNESS COORDINATOR Body Mass Index 15.93 10/18/2013 6:10 PM CIVIL PREPAREDNESS COORDINATOR Body Mass Index Percentile 11.23% 10/18/2013 6:1 0 PM CIVIL PREPAREDNESS COORDINATOR Growth Chart: CDC (Girls, 2- 20 Years) documented in this encounter Progress Notes * Rajani Allen MD - 10/18/2013 6:04 PM CST Nursing Chief Complaint/Reason For Encounter stomach pain Intake Note PATIENT HERE WITH MOTHER FOR EVALUATION OF ABDOMINAL PAIN THAT BEGAN LAST NIGHT. PATIENT STATES THAT THE PAIN IS CONSTANT AND HAS HAD A BM THAT WAS RUNNY TODAY. PATIENT HAS BEEN PASSING A LITTLE GAS.PATIENT DENIES VOMITING. PATIENT HAS NOT EATEN SINCE THIS MORNING AND ONLY HAD SOME POTATO CHIPS.ROZN HAS TAKEN OTC TYLENOL AROUND 4:00 PM BUT DID NOT HELP WITH PAIN.: Patient has a primary care provider, Mode of arrival Walk, Name of PCP: zelalem miles: Pulse oximetry 97% AT [employer] [facility] PCP Thank you for choosing [facility] for your Specialty care needs. Remember to visit your Primary Care Provider for wellness visits and other healthcare concerns. If you require follow up for your influenza or pneumonia vaccine, colon screening, breast cancer screening, or high blood pressure,see your Primary Care Provider as directed by your Specialist. [facility] Primary Care Provider: ZELALEM MILES Please call [phone]) or visit us at [email or web address] to find a [facility] Healthcare Provider that is perfect for you. If you require follow up for your influenza or pneumonia vaccine, colon screening, breast cancer screening, or high blood pressure, see your Primary CareProvider as directed by your Specialist. Prevention An influenza (flu) vaccine is recommended for all patients 6 months of age and over. Tobacco Depression Screening : Time of arrival 5:56 pm Subjective HPI This child developed a pain in her abdomen last night. She thought that it was better this morning,but it has worsened through the day. She has also started a low grade fever of a little over 100 and has had one runny stool. Nauseated and anorexic, but no vomiting. Denies back pain, pain with urination, or frequency. Denies history of upper respiratory symptoms or cough. Allergies Reviewed: Oct 18 2013 Chicken Derived: Hives; eggs: Hives; NEOSPORIN: Rash; SHELLFISH Past Med/Surg History Problems Acute bronchospasm (1); First Visit: Jul 30 2012, Last Visit: Jul 30 2012 Administrative encounter - CK Advice/health instruction (1); First Visit: Aug [...] [place]; Dates: 03/08/2002 Med List last modified Oct 18 2013 Reviewed: Oct 18 2013 albuterol sulfate 2.5 mg/3 mL (0.083 %) Neb Solution, 1 neb treatment up to 3 x day as needed, 3 ml(s) taking Children's Claritin 5 mg Chewable Tab, 1 cap(s) by mouth daily taking Nasonex 50 mcg/actuation [place], 1 spray(s) each nostril daily taking Ventolin HFA 90 mcg/Actuation Aerosol Inhaler, 1 puff by mouth up to 3 times a day as needed for shortness of breath, 18 taking Zyrtec 10 mg Chewable Tab, 1 tab(s) by mouth before bedtime taking discontinued (COMPLETED COURSE) discontinued (COMPLETED COURSE) Preferred Pharmacy [place], [place] ([facility]) [AMANDA, [address] [facility]] Family History last modified Jan 03 2011 Positive Family History for: Asthma Bipolar disorder Breast cancer Depressive disorder Diabetes mellitus Hyperlipidemia Lung cancer Migraine Thyroid disorder Social History last modified Jul 30 2013 Reviewed: Oct 18 2013 Tobacco Never smoked; Never used smokeless; Exposure to smoking No exposure to environmental tobacco smoke; Tobacco reviewed with patient 10/18/2013 Alcohol Use Non-drinker Caffeine Use No caffeine use Drug Misuse No reported history Home Safety Risk No significant home safety risk factors; Seat belt worn consistently; Smoke detectors in home; Child safety seat use; Knows how to swim Personal: Ethnicity: Not ; Race: WHITE; Primary language: KOREAN; Marital status: Single; Employer: NONE Objective Vital Signs Temp: 98.5??F (Skin) [37.0??C] HR: *118 bpm Height: 57 in [144.78 cm](4.9 percentile) Weight:73.6 lbs [33.384 kg ](3.9 percentile) BMI: 15.9 (10.9 percentile) BSA: 1.176 Pain Scale: 8/10 (Numeric) Location: MIDDLE OF ABDOMEN Frequency: Constant Duration: SINCE LAST NIGHT Significant to Visit: Yes Date/Time: Oct 18 2013 18:10 Physical Exam Constitutional: Well groomed, Alert, No acute distress, Body habitus normal (General appearance), Well nourished Cardiovascular: Tachycardia, Heart rhythm normal, Heart sounds normal, Heart murmur none Respiratory: Respiratory effort normal, Breath sounds clear to auscultation Gastrointestinal: Abdomen soft, Bowel sounds normal, No hepatomegaly, No splenomegaly Mild tenderness above and to right of umbilicus. No guarding or rebound. No palpable masses. Statesthat pain is worse in RLQ. Lab Results 10/18/2013 Urine w/o micro - YESENIA Appearance YELLOW Glucose NEG mg/dl Bilirubin SMALL n=negative Ketones 15 mg/dl Specific gravity 1.025 Blood NEG n=negative pH 6.5 Protein 30 mg/dl Urobilinogen 0.2 mg/dl Nitrite NEG n=negative Leukocytes NEG n=negative Assessment Assessments Abdominal pain (ICD-9 billing code: 789.00) Gastroenteritis, viral (ICD-9 billing code: 008.8) Billing Detail Review and/or order of lab tests Plan: Other orders Push fluids. acetaminophen for fever Observation. If abdominal pain worsens, go to ER for further evaluation. Lab Orders Urine Dipstick (Urinalysis w/o micro) - YESENIA (YESENIA Resulted - Abdominal pain) Follow up Go to ER if fever worsens, pain worsens, or vomiting develops. Contributors to this Visit Note Documenting Clinician: Thuy VILLAR - Staff Type: CHIP FRIER Time: Oct 18 2013 18:04 Action: Amber VILLAR - Staff Type: TREVER Time: Oct 18 2013 18:16 Action: Crista SALTER - Staff Type: OLESYA Time: Oct 18 2013 18:29 Action: Crista ALLEN - Staff Type: Time: Oct 18 2013 18:53 Action: Crista ALLEN - Staff Type: MD Time: Oct 18 2013 18:54 Action: Sign documented in this encounter Plan of Treatment Not on file documented as of this encounter Visit Diagnoses Diagnosis Abdominal pain, right upper quadrant Other and unspecified noninfectious gastroenteritis and colitis(558.9) Other and unspecified noninfectious gastroenteritis and colitis documented in this encounter Care Teams Plant Director Relationship Specialty Start Date End Date Kameron Davila MD PCP - General Family Medicine 03/27/14 documented as of this encounter
--- OUTSIDE RECORDS SUMMARY | 2025-08-03 00:09 | XMS_ITS | Encounter Summary ---
Author Organization [facility] Address [address] [place] [address] Care Team Providers Care Hydroelectric Machinery Mechanic Helper Name Role Phone Kameron Turk MD Primary Care Provider [phone] Encounter Details Date Type Department Care Team (Latest Contact Info) Description 12/19/2013 Historical Office Visit [facility] Medicine [address] [place] [address] Kameron Turk MD [address] [facility] [address] [place] [address] Anxiety state, unspecified Social History Tobacco Use Types Packs/Day Years Used Date Smoking Tobacco: Never Assessed Comments Unknown Sex and Gender Information Value Date Recorded Sex Assigned at Not on file Legal Sex Female 2:48 PM SERVICE DELIVERY DIRECTOR Gender Identity Female 12/28/2020 10:43 PM CDT Sexual Orientation Straight 12/28/2020 10 :43 PM CDT documented as of this encounter Last Filed Vital Signs Vital Sign Reading Time Taken Comments Blood Pressure 102/66 12/19/2013 2:10 PM CDT Pulse 108 12/19/2013 2:10 PM CDT Temperature 36.8 C (98.2 F) 12/19/2013 2:10 PM CDT Respiratory Rate - - Oxygen Saturation - - Inhaled Oxygen Concentration - - Weight 34.2 kg (75 lb 5 oz) 12/19/2013 2:10 PM C DT Height - - Body Mass Index - - documented in this encounter Progress Notes * Kameron Turk MD - 12/19/2013 2:07 PM CDT Nursing Chief Complaint/Reason For Encounter Rivas Pt; Pt is here for possible Psych referral and Depression Intake Note Pt is amb to the office w/parents [employer] [facility] Prevention An influenza (flu) vaccine is recommended for all patients 6 months of age and over. Tobacco Depression Screening Over the past 2 weeks, have you felt little interest or pleasure in doing things? Yes Over the past 2 weeks, have you felt down, depressed or hopeless? Yes Subjective HPI Depression Onset: 3 months ago Description: How is your energy level: In between, varies, Any periods of high energy or a lot of activity? Explain: Yes, Patient reports a sense of hopelessness, Patient reports a sense of worthlessness, Sad moods reported, Patient reports a lack of plessure, Crying spells reported, Isolation from people, Poor concentration reported, No Poor memory, Change in appetite reported, Sleep patterns: She could sleep for long periods if allowed, up to 10hrs and still wants to sleep, Irritation, Anger reported, Thoughts of suicide reported, Plans for suicide reported, No thoughts of hurting other people Duration: Intermittent Intensity: Unsure History of This Problem Before: Any medications for depression in the past? What: N/A, No Previous psychiatric hospitalizations, No Previous suicide attempts Accompanying Signs and Symptoms: Headaches, Abdominal Pain, No Back Pain Precipitating and Alleviating Factors: Any recent loss? No She doesn't want to go to school and calls constantly to be picked up by Mom. She would like to be home schooled. Mom unsure if there's conflict at school or not. Mom states her and Maritza fight at home like normal mother/daughter Darius presents to the office for depression/psych referral. Parents state she has had depression symptoms for approx 3 months. She has little to no appetite. She would sleep all day if you'd let her. Robyn was brought to clinic today by her parents for concerns for possible depression anxiety or other undiagnosed mood disorder. She has seen the social media content manager at [facility] for a one-time screening and she had significant enough concerns to recommend an acute visit for evaluation for determination of a possible treatment or referral. Robyn is somewhat reluctant to be in the office today and is rather difficult to get a straight answer from. Overall she states she is doing fine and has no major problems or concerns and is only here because her parents forced her to. Mother and father state similar issues as above. They notice widely fluctuating behaviors to significant emotional ou tbursts. She has had 2 situations in the past month where she has mentioned suicide to both her mother and her father. Robyn currently states she is not actively suicidal and has no thoughts or concerns at suicide at this time and states that it was only done out of anger. Robyn does admit that shedoes have emotional anger outbursts but she is unsure of what triggers them. She has never been on medications for any type of mood disorder in the past. Mom is currently under treatment for depression and anxiety. Allergies Reviewed: Dec 19 2013 Chicken Derived: Hives; eggs: Hives; NEOSPORIN: Rash; SHELLFISH Past Med/Surg History Problems Acute bronchospasm (1); First Visit: Jul 30 2012, Last Visit: Jul 30 2012 Administrative encounter - RA BRENNEN Advice/health instruction (1); First Visit: Aug 20 [...] Last Performed: 02/13/2008 Med List last modified Dec 19 2013 Reviewed: Dec 19 2013 albuterol sulfate 2.5 mg/3 mL (0.083 %) Neb Solution, 1 neb treatment up to 3 x day as needed, 3 ml(s) taking Children's Claritin 5 mg Chewable Tab, 1 cap(s) by mouth daily taking Nasonex 50 mcg/actuation [place], 1 spray(s) each nostril daily taking Ventolin HFA 90 mcg/Actuation Aerosol Inhaler, 1 puff by mouth up to 3 times a day as needed for shortness of breath, 18 taking Zyrtec 10 mg Chewable Tab, 1 tab(s) by mouth before bedtime taking Preferred Pharmacy [place], [place] ([facility]) [AMANDA, [address] [facility]] Family History last modified Jan 03 2011 Positive Family History for: Asthma Bipolar disorder Breast cancer Depressive disorder Diabetes mellitus Hyperlipidemia Lung cancer Migraine Thyroid disorder Social History last modified Jul 30 2013 Tobacco Never smoked; Never used smokeless; Exposure to smoking No exposure to environmental tobacco smoke; Tobacco reviewed with patient 12/19/2013 Personal: Ethnicity: Not ; Race: WHITE; Primary language: GREENLANDIC; Marital status: Single; Employer: NONE Events and Previous Visit Info: Maritza was last seen by Dr Rivas for abdominal pain on 10/18/13 Review of systems General: No Anorexia, No Chills, No Dizziness, No Fatigue, No Fever, Headaches, No Lightheadedness,No Malaise, No Sweats, Weight gain, No Weight loss Respiratory: No Cough, No Dyspnea, No Excessive sputum, No Hemoptysis, No Wheezing Gastrointestinal: Abdominal pain, No Blood in stool, No Change in bowel habits, No Constipation, NoDiarrhea, No Jaundice, No Melena, No Nausea, No Reflux symptoms, No Vomiting Psychiatric: Depression, No Anxiety, No Memory loss, Difficulty Concentrating, Suicidal Ideation, Frequent crying spells, Lack of pleasure, Change in sleeping patterns, Increasing isolation, No Hallucinations, No Paranoia, Not at risk for violence Objective Vital Signs Temp: 98.2??F (Other) [36.8??C] HR: *108 bpm Blood Pressure: 102/66 mmHg (L arm sitting Adult-std cuff) Weight:75 lb 5 oz lbs [34.161 kg ](4.2 percentile) BMI: 16.3 (14.5 percentile) BSA: 1.187 (Height value used from 10/18/2013) Date/Time: Dec 19 2013 14:10 Physical Exam Constitutional: Well nourished, No acute distress, Body habitus normal Psych and mental status: Alert, Oriented x3, Does not appears anxious, No signs of depressed mood, Judgement not impaired, Insight not impaired no SI/HI ideations Neurologic: Mentally alert Assessment Assessments Episodic mood disorder (ICD-9 billing code: 296.90) Billing Detail Medication Management: New/current prescription meds Plan Prescription Orders Rx Cart - Dec 19 2013 15:00 fluoxetine 10 mg capsule, 1 capsule(s) by mouth daily before noon, 30 capsule(s), 1 refill Cart Status: Submitted Route: Electronic Rx Cart Order Notes: [facility] prescriptions to [facility] [place] ([place]) [place] [id number] phone: [phone] fax: Message for Pharmacy: - Mood disorder. Unknown etiology for which her symptoms at this time but she does show signs of depression anxiety possible oppositional defiant disorder. I have highly recommended continuing on with her counseling as I believe this would be the most beneficial thing for her. We also discussed possibilities medications and ongoing psychiatric referral. Patient refuses any further evaluation or psyc hiatry referrals. Mom and dad are okay with this as long as she undergoes treatment and continues with counseling. We will set up a referral at the request. We will start her on a low-dose fluoxetineas this is the current medication her mother takes he gets good results from. I am hoping this will release help to reduce her anger outbursts until we can get to the underlying issues to counseling.We will see her back in 4 weeks for followup to determine ongoing treatment strategies medication titrations and ongoing workup and evaluation. Contributors to this Visit Note Documenting Clinician: Brittany MAI - Staff Type: MOA Time: Dec 19 2013 14:07 Action: Amber MAI - Staff Type: MOA Time: Dec 19 2013 14:31 Action: Edit Brittany TURK - Staff Type: Time: Dec 21 2013 15:27 Action: Edsusy TURK - Staff Type: Time: Dec 21 2013 15:27 Action: Sign documented in this encounter Plan of Treatment Not on file documented as of this encounter Visit Diagnoses Diagnosis Anxiety state, unspecified documented in this encounter Care Teams Hydroelectric Machinery Mechanic Helper Relationship Specialty Start Date End Date Kameron Turk MD PCP - General Family Medicine 03/27/14 documented as of this encounter
--- OUTSIDE RECORDS SUMMARY | 2025-08-03 00:09 | XMS_ITS | Encounter Summary ---
Author Organization [facility] Address [address] [place] [address] Phone Care Team Providers Care Electromechanical Equipment Tester Name Role Phone Kameron Davila MD Primary Care Provider Reason for Visit * Reason Onset Date Comments Refill Request 11/18/2023 Encounter Details Date Type Department Care Team (Late st Contact Info) Description 11/18/[address] [facility] [place] [address] [facility] [address] [place] [address] Columba Gardner, POCKET SETTER LOCKSTITCH [address] [facility] [address] [place] [address] Refill Request Social History Tobacco Use Types Packs/Day Years Used Date Smoking Tobacco: Never Smokeless Tobacco: Never Comments:Quit smoking: Vapes socially Alcohol Use Standard Drinks/Week Comments No 0 (1 standard drink = 0.6 oz pur e alcohol) Comments Unknown Sex and Gender Information Value Date Recorded Sex Assigned at Not on file Legal Sex Female 9:05 AM CDT Gender Identity Female 08/02/2023 9:05 AM CDT Sexual Orientation Straight 08/02/2023 9: 05 AM CDT documented as of this encounter Plan of Treatment Not on file documented as of this encounter Visit Diagnoses Not on filedocumented in this encounter Care Teams Electromechanical Equipment Tester Relationship Specialty Start Date End Date Kameron Davila MD PCP - General 03/27/14 documented as of this encounter
--- OUTSIDE RECORDS SUMMARY | 2025-08-03 00:09 | XMS_ITS | Encounter Summary ---
Author Organization [employer] Address [address] [place] [address] Care Team Providers Care Before School Babysitter Name Role Phone Kameron Davila MD Primary Care Provider [phone] Encounter Details Date Type Department Care Team (Latest Contact Info) Description 08/03/2013 Historical Office Visit [facility] Family Medicine [address] [place] [address] Zan Rivas MD Unspecified asthma Social History Tobacco Use Types Packs/Day Years Used Date Smoking Tobacco: Never Assessed Comments Unknown Sex and Gender Information Value Date Recorded Sex Assigned at Not on file Legal Sex Female 2:48 PM ELECTRICIAN SUBSTATION Gender Identity Female 12/28/2020 10:43 PM CDT Sexual Orientation Straight 12/28/2020 10 :43 PM CDT documented as of this encounter Last Filed Vital Signs Vital Sign Reading Time Taken Comments Blood Pressure 122/84 08/03/2013 3:23 PM CDT Pulse 100 08/03/2013 3:23 PM CDT Temperature 36.3 C (97.4 F) 08/03/2013 3:23 PM CDT Respiratory Rate 28 08/03/2013 3:23 PM CDT Oxygen Saturation - - Inhaled Oxygen Concentration - - Weight 33.3 kg (73 lb 7 oz) 08/03/2013 3:23 PM C DT Height - - Body Mass Index - - documented in this encounter Progress Notes * Zan Rivas MD - 08/03/2013 3:16 PM CDT Nursing Chief Complaint/Reason For Encounter follow up for cough [employer] [facility] Influenza vaccination up-to-date? No. Depression Screening date: 07/30/2013. Subjective Allergies Reviewed: Aug 03 2013 Chicken Derived: Hives; eggs: Hives; NEOSPORIN: [...] Dates: 03/08/2002 Med List last modified Aug 03 2013 Reviewed: Aug 03 2013 albuterol sulfate 2.5 mg/3 mL (0.083 %) Neb Solution, 1 neb treatment up to 3 x day as needed, 3 ml(s) taking azithromycin 250 mg tablet, 1 TAB BY MOUTH DAILY FOR FIVE DAYS, 10 tablet(s) taking Children's Claritin 5 mg Chewable Tab, 1 cap(s) by mouth daily taking Nasonex 50 mcg/actuation [place], 1 spray(s) each nostril daily taking prednisone 10 mg tablet, 1 tab by mouth daily x 10 days, 20 tablet(s) taking Ventolin HFA 90 mcg/Actuation Aerosol Inhaler, 1 puff by mouth up to 3 times a day as needed for shortness of breath, 18 taking Zyrtec 10 mg Chewable Tab, 1 tab(s) by mouth before bedtime taking Preferred Pharmacy [facility]) [AMANDA, [address] [place] [address]] Family History last modified Jan 03 2011 Reviewed: Aug 03 2013 Positive Family History for: Asthma Bipolar disorder Breast cancer Depressive disorder Diabetes mellitus Hyperlipidemia Lung cancer Migraine Thyroid disorder Social History last modified Jul 30 2013 Reviewed: Aug 03 2013 Tobacco Never smoked; Never used smokeless; Exposure to smoking No exposure to environmental tobacco smoke; Tobacco reviewed with patient 08/03/2013 Alcohol Use Non-drinker Caffeine Use No caffeine use Drug Misuse No reported history Home Safety Risk No significant home safety risk factors; Seat belt worn consistently; Smoke detectors in home; Child safety seat use; Knows how to swim Personal: Ethnicity: Not ; Race: WHITE; Primary language: SERBIAN; Marital status: Single; Employer: NONE Objective Vital Signs Other and Notes: pulse ox with exercise = 95% Date/Time: Aug 03 2013 15:34 Temp: *97.4 ??F (Oral) [36.4??C] HR: 100 bpm RR: 28 Blood Pressure: 122/84 mmHg (L arm sitting Adult-std cuff) Weight:73 lb 7 oz lbs [33.311 kg ](5.1 percentile) BMI: 16.8 (24.1 percentile) BSA: 1.152 (Height value used from 05/15/2013) Other and Notes: pulse ox at rest on room air = 98% Date/Time: Aug 03 2013 15:23 Pain Scale: 2/10 (Numeric) Location: chest Frequency: Intermittent Date/Time: Aug 03 2013 15:16 Assessment S: Significant improvement in her respiratory status. No significant cough. I recommend that she does not have PE for the next couple of weeks. Form was completed. She is otherwise doing well. O: Cardiovascular: Regular rate and rhythm, without murmur, S1 and S2 heard. No S3. No rub. No gallop. Respiratory: Clear to auscultation without rales, wheezes, or crackles. GI: Abdomen: Soft, nontender. Bowels sounds are positive without any masses. and rectal exams are not performed. A: Bronchospasm resolved. P: DX: See EMR. TX: See EMR. ED: Side effects of the medication were explained with good comprehension. The patient's mom, who was present today, verbalized understanding of above plan. Otherwise, continue present management. //ed Plan: Patient Education Information: Written and verbal information given to patient. Patient receptive and voiced understanding. No review needed. Contributors to this Visit Note Documenting Clinician: Leti AARON - Staff Type: RN Time: Aug 03 2013 15:16 Action: Amber AARON - Staff Type: RN Time: Aug 03 2013 15:35 Action: Crista Morales Type: Time: Aug 08 2013 01:10 Action: Crista Morales Type: Time: Aug 08 2013 01:10 Action: Sign Leti Morales Type: Time: Aug 12 2013 18:38 Action: Attest documented in this encounter Plan of Treatment Not on file documented as of this encounter Visit Diagnoses Diagnosis Unspecified asthma(493.90) Unspecified asthma documented in this encounter Care Teams Before School Babysitter Relationship Specialty Start Date End Date Kameron Davila MD PCP - General Family Medicine 03/27/14 documented as of this encounter
[2025-08-03 00:31] VITALS: BP 122/61; O2SAT 97
[2025-08-03 01:01] VITALS: BP 139/94; O2SAT 98
[2025-08-03 01:20] VITALS: BP 139/94; PULSE 90; RESP 20; TEMP 36.7; O2SAT 100
== END 2025-08-03 01:22 | disposition home or self-care (01) ==
PROVIDERS: Emergency Provider Student in an Organized Health Care Education/Training Program
DX: T78.2XXA Anaphylactic shock, unspecified, initial encounter (principal); D68.00 Von Willebrand disease, unspecified; J45.909 Unspecified asthma, uncomplicated; Z91.013 Allergy to seafood; Z96.649 Presence of unspecified artificial hip joint
CPT/HCPCS: 96372; 99283; J0166

== ENCOUNTER 2025-08-05 17:00 | Emergency (ER) | payer BC, SELFPAY ==
[2025-08-05 17:25] VITALS: BP 121/77; PULSE 83; RESP 16; TEMP 36.1; O2SAT 100
[2025-08-05 17:41] LABS: EDSTREPNEGPOS1 Negative (Negative)
--- NOTE | 2025-08-05 17:47 | ED_ITS ---
HPI - URI/Sore Throat General Chief Complaint: Upper Respiratory Infection Stated Complaint: Upper Respiratory Symptoms Time Seen by Provider: 08/05/25 17:30 Source: patient and RN notes reviewed Mode of arrival: ambulatory Limitations: no limitations History of Present Illness HPI Narrative: 24-year-old female presents Express Care complaining of upper respiratory symptoms for approximately 1 week. Patient reports cough,, body aches, fevers, congestion, sore throat. Patient denies any other upper respiratory symptoms, chills, nausea vomiting, diarrhea, chest pain, difficulty breathing, abdominal pain, or any other symptoms. Patient denies any significant past medical history other than ADHD. Patient says symptoms are not getting better and she feels like symptoms are getting worse. Related Data Home Medications ?Medication ?Instructions ?Recorded ?Confirmed ?Last Taken ?Type sertraline 25 mg tablet 25 mg PO DAILY 04/24/2407/10 Unknown History albuterol sulfate 90 mcg/actuation 90 mcg inhalation A S DIRECTED 07/20/24 07/20/24 Unknown History aerosol inhaler dextroamphetamine-amphetamine 15 15 mg PO DIRECTED 07/20/24 05/19/25 Unknown History mg tablet Allergies Allergy/AdvReac Type Severity Reaction Status Date / Time latex Allergy Intermediate Hives Verified 08/02/25 23:27 bacitracin (From Neosporin Allergy Mild Rash Verified 08/02/25 23:27 ([id number])) neomycin (From Neosporin Allergy Mild Rash Verified 08/02/25 23:27 ([id number])) polymyxin B (From Neosporin Allergy Mild Rash Verified 08/02/25 23:27 ([id number])) adhesive tape Allergy Rash Verified 08/02/25 23:27 shellfish derived Allergy sob/throat Verified 08/02/25 23:27 swelling Review of Systems Review of Systems: CONSTITUTIONAL: Positive for fevers body aches. Negative for chills, or sweats. EYES: Denies visual changes, redness, or discharge. ENT: Denies rhinorrhea, or otalgia. Positive for sore throat and congestion. CARDIOVASCULAR: Denies chest pain, palpitations, or edema. RESPIRATORY: Positive for cough. Negative for wheezing or dyspnea. GASTROINTESTINAL: Denies abdominal pain, nausea, vomiting, or diarrhea. GENITOURINARY: Denies dysuria or hematuria. SKIN: Denies rash or itching. MUSCULOSKELETAL: Denies back pain, joint pain, or myalgia. NEUROLOGIC: Denies headache, numbness, or weakness. PSYCHIATRIC: Denies anxiety or depression. All other systems reviewed are negative, except as documented in HPI. [facility] Past Medical History Medical History Von Willebrand's disease Allergies Arthralgia of hip Asthma Kidney infection Implanon in place Surgical History Surgical History History of tonsillectomy and adenoidectomy H/O total hip arthroplasty labral tear [place] teeth extracted Family History Family History Mother Von Willebrands disease Social History Social History Smoking status: Never smoker Occupation/Education: student Gender identity (if verbalized by the patient): Female Comments At the time of my signature, I reviewed and agree with the nursing past medical, surgical, social, and family history. There is no relevant family history pertinent to the patient complaint. Exam Narrative: GENERAL: This is a well-nourished, well-developed adult, in no apparent distress. They are non ill-appearing, nontoxic appearing. HEAD: normocephalic, atraumatic. EYES: Sclera clear/white. Conjunctiva normal. Vision is grossly intact. Extraocular movements intact EARS: External ears normal, auditory canals clear and without drainage, TMs normal without perforation. Hearing grossly intact. NOSE: External nose normal with no obvious nasal discharge, nasal turbinates erythematous, no rhinorrhea. THROAT: Mucous membranes moist, posterior pharynx erythematous with exudate present.. Uvula midline. Postnasal drip present. NECK: Neck supple, mild cervical lymphadenopathy, no masses or thyromegaly. CARDIOVASCULAR: Regular rate and rhythm without murmurs, gallops, or rubs. RESPIRATORY: Clear to auscultation. Breath sounds equal bilaterally. No wheezes, rales, or rhonchi. SKIN: warm, Dry, intact with no suspicious lesions or rash, good texture and turgor. NEURO: awake, alert, and oriented to person, place and time. There were no obvious focal neurologic abnormalities. EXTREMITIES: No joint tenderness, effusion, or edema noted. BACK: Nontender without deformity. Course Course Emergency Course: Portions of this record may have been created with voice recognition software Level of Care: Express Care Visit Vital Signs Vital signs: Vital Signs Temperature 97 F L 08/05/25 17:25 Pulse Rate 83 08/05/25 17:25 Respiratory Rate 16 08/05/25 17:25 Blood Pressure 121/77 08/05/25 17:25 Pulse Oximetry 100 08/05/25 17:25 Temperature 97 F L 08/05/25 17:25 Pulse Rate 83 08/05/25 17:25 Respiratory Rate 16 08/05/25 17:25 Blood Pressure 121/77 08/05/25 17:25 Pulse Oximetry 100 08/05/25 17:25 Reviewed MDM - URI/Sore Throat MDM Narrative Medical decision making narrative: Rapid strep negative. A throat culture is pending. Given patient's length of symptoms and worsening symptoms is likely patient bacterial sinusitis. Will treat with Augmentin. Discussed physical exam findings. Advised supportive measures and signs/symptoms to go to the ER. Pt is appropriate for outpt treatment and f/u. Differential Diagnosis Differential diagnosis: Likely upper respiratory infection, otitis media, sinusitis, viral infection and pharyngitis Lab Data Attestation: I reviewed the patient's lab results. Labs: Lab Results 08/05/25 Range/Units 17:25 POC Grp A Strep Screen Negative (Negative) Critical Care Time Critical Care Time Critical Care Time: No Discharge Plan Discharge Clinical Impression: Sinusitis Qualifiers: Sinusitis location: unspecified location Chronicity: acute Recurrence: non- recurrent Qualified Code(s): J01.90 - Acute sinusitis, unspecified Patient Disposition: Home Condition: Stable Instructions: Antibiotic Form, Sinusitis (ED) Additional Instructions: Take the antibiotics as directed and complete the course even if you start to feel better. You may use a Neti pot saline rinse 3 times a day with lukewarm distilled water Continue to take Tylenol or Motrin as needed for pain or fevers follow instructions on the bottle Use a humidifier or vaporizer at night. Drink plenty of water. 8-10 glasses per day. Use flonase 2 times per day for 5 days then as needed Take mucinex 2 times per day and be sure to take with 8oz of water. Follow up with Primary provider in 3-5 days Please go to the ER if he develops any difficulty breathing, chest pains, vomiting, worsening symptoms, or any other concerns Patient Language: Belarusian Prescriptions: New amoxicillin-pot clavulanate 875-125 mg tablet 1 tablet PO Q12H 7 Days Qty: 14 0RF No Action dextroamphetamine-amphetamine 15 mg tablet 15 mg PO DIRECTED albuterol sulfate 90 mcg/actuation HFA aerosol inhaler 90 mcg INHALATION DIRECTED sertraline 25 mg tablet 25 mg PO DAILY epinephrine [EpiPen 2-Bruno] 0.3 mg/0.3 mL auto-injector 0.3 mg IM Q5-15M PRN (Reason: anaphylaxis) Qty: 2 0RF Rx Instructions: do not exceed 3 doses per episode Follow-up/Referrals: PHYSICIAN,THEATRICAL TROUPER [Primary Care Provider, Internal Medicine] Stand Alone Forms: Work/School Release IP Time of Disposition: 17:44
== END 2025-08-05 17:48 | disposition home or self-care (01) ==
DX: J01.90 Acute sinusitis, unspecified (principal); D68.00 Von Willebrand disease, unspecified; J45.909 Unspecified asthma, uncomplicated; F90.9 Attention-deficit hyperactivity disorder, unspecified type
CPT/HCPCS: 87081; 87880; 99213; G0463

== ENCOUNTER 2025-09-18 09:43 | Emergency (ER) | payer BC, SELFPAY ==
--- NOTE | 2025-09-18 09:52 | ED.URI ---
HPI - URI/Sore Throat General Chief Complaint: Upper Respiratory Infection Stated Complaint: COUGH/SORE THROAT/CONGESTION/EARACHE Time Seen by Provider: 09/18/25 09:52 Source: patient Mode of arrival: ambulatory Limitations: no limitations History of Present Illness HPI Narrative: Citlali is a 24-year-old female patient presenting to the clinic today with complaints of cough, sore throat, congestion, and ear pain x2 days. 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 Denies any known fevers. Rates her pain 2/10 currently. History of tonsillectomy and adenoids. Related Data Home Medications ?Medication ?Instructions ?Recorded ?Confirmed ?Last Taken ?Type albuterol sulfate 90 mcg/actuation 90 mcg inhalation DIRECTED 07/20/24 09/18/25 Unknown History aerosol inhaler dextroamphetamine-amphetamine 15 15 mg PO DIRECTED 07/20/24 09/18/25 Unknown History mg tablet etonogestrel 68 mg subdermal 1 implant subdermal ONCE 09/18/25 09/18/25 Unknown History implant (Nexplanon) Allergies Allergy/AdvReac Type Severity Reaction Status Date / Time latex Allergy Intermediate Hives Verified 09/18/25 09:50 bacitracin (From Neosporin Allergy Mild Rash Verified 09/18/25 09:50 ([id number])) neomycin (From Neosporin Allergy Mild Rash Verified 09/18/25 09:50 ([id number])) polymyxin B (From Neosporin Allergy Mild Rash Verified 09/18/25 09:50 ([id number])) adhesive tape Allergy Rash Verified 09/18/25 09:50 shellfish derived Allergy sob/throat Verified 09/18/25 09:50 swelling Review of Systems Review of Systems: Pertinent positives per HPI. Patient denies any fever, chills, rash, headache, visual changes, dizziness, shortness of breath, chest pain, palpitations, nausea, vomiting, diarrhea, constipation, abdominal pain, or any urinary issues. PMFSH Past Medical History Medical History Von Willebrand's disease Allergies Arthralgia of hip Asthma Kidney infection Implanon in place Surgical History Surgical History History of tonsillectomy and adenoidectomy H/O total hip arthroplasty labral tear [place] teeth extracted Family History Family History Mother Von Willebrands disease Social History Social History Smoking status: Never smoker Occupation/Education: student Gender identity (if verbalized by the patient): Female Comments At the time of my signature, I reviewed and agree with the nursing past medical, surgical, social, and family history. There is no relevant family history pertinent to the patient complaint. Exam Narrative: General: Well-developed, well nourished, in no apparent distress Head: Normocephalic, atraumatic Eyes: Pupils equally round and reactive to light bilaterally, EOM intact, sclera and conjunctive clear, no discharge, lids normal Ears: TMs intact and congested, ear canals clear, no drainage, grossly hearing normal. Nose: Nares patent, clear nasal discharge, mild inflammation, no sinus tenderness. Mouth: Oral pharynx red without lesions or masses, good dentition, MMM. Postnasal drip Neck: Supple, trachea midline, no enlargement of anterior or posterior cervical nodes, no thyroid masses or goiter palpable. Cardio: Regular rate and rhythm, s1 and s2 normal, no murmur appreciated. Resp: Clear to auscultation bilaterally, no rhonchi, rales, wheezing or rubs Course Course Level of Care: Express Care Visit Vital Signs Vital signs: Vital Signs Temperature 36.8 C 09/18/25 09:55 Pulse Rate 102 H 09/18/25 09:55 Respiratory Rate 16 09/18/25 09:55 Blood Pressure 117/85 09/18/25 09:55 Pulse Oximetry 100 09/18/25 09:55 Temperature 36.8 C 09/18/25 09:55 Pulse Rate 102 H 09/18/25 09:55 Respiratory Rate 16 09/18/25 09:55 Blood Pressure 117/85 09/18/25 09:55 Pulse Oximetry 100 09/18/25 09:55 [facility] [place] MDM Narrative Medical decision making narrative: At the time of visit patient is resting comfortably on the exam table. Patient appears to be nontoxic. complaints of cough, sore throat, congestion, and ear pain x2 days. 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 Denies any known fevers. Rates her pain 2/10 currently. History of tonsillectomy and adenoids. On exam patient has bilateral TMs intact and congested, clear nasal drainage, mild anterior turbinate inflammation, oral pharynx with postnasal drip, tonsils surgically absent, no cervical lymphadenopathy, heart rates regular rate and rhythm, lung sounds are clear. COVID, flu, strep test were ordered. Labs: Strep COVID and influenza testing were all negative. We will send strep for culture. Plan: I suspect patient has URI/pharyngitis/viral syndrome. We will send strep for culture. Patient denies any new work note at this time. Supportive measures were discussed with the patient and they voiced understanding discharge instructions and agrees to treatment plan. Return precautions reviewed Differential Diagnosis Differential Diagnosis: Differential diagnostic considerations for upper respiratory infection include upper respiratory infection, croup, otitis media, sinusitis, viral infection, bronchitis, influenza, pharyngitis, strep, uvulitis. Lab Data Labs: Lab Results 09/18/25 Range/Units 10:14 POC Influenza A Ag Negative (Negative) POC Influenza B Ag Negative (Negative) POC SARS CoV-2 Ag Negative (Negative) POC Grp A Strep Screen Negative (Negative) Discharge Plan Discharge Clinical Impression: Viral infection Upper respiratory infection Qualifiers: URI type: unspecified URI Qualified Code(s): J06.9 - Acute upper respiratory infection, unspecified Pharyngitis Qualifiers: Pharyngitis/tonsillitis etiology: unspecified etiology Qualified Code(s): J02.9 - Acute pharyngitis, unspecified Patient Disposition: Home Condition: Stable Instructions: Antibiotic Form, Pharyngitis (ED), Viral Syndrome (ED), Cold Symptoms (ED) Additional Instructions: COVID, flu, and strep test were all negative in the clinic today. We will send strep for culture if this comes back positive we will contact him place you on antibiotics at that time. Lung sounds are clear and there is no sign of bacterial infection Increase fluids and stay well hydrated May take Tylenol or motrin as directed on bottle for pain/fever May use Flonase 1 spray in each nare daily May take OTC antihistamines such as Zyrtec or Claritin daily as directed on bottle May apply Vicks vapor rub to chest to open sinuses Sinus rinses for congestion Cepacol spray, cough drops, throat lozenges, warm tea with honey/lemon, gargle salt water to soothe throat BRAT diet for diarrhea Clear liquids x 24 hours then advance as tolerated for nausea/vomiting Go to the ED if you develop a worsening in your condition- high fever not controlled by Tylenol or Motrin, dehydration, weakness, lethargy, shortness of breath, or chest pain. Follow up with your PCP in 3-5 days if symptoms persist. Patient Language: German Prescriptions: No Action dextroamphetamine-amphetamine 15 mg tablet 15 mg PO DIRECTED albuterol sulfate 90 mcg/actuation HFA aerosol inhaler 90 mcg INHALATION DIRECTED Nexplanon 68 mg implant 1 implant subdermal ONCE Rx Instructions: as a single dose epinephrine [EpiPen 2-Bruno] 0.3 mg/0.3 mL auto-injector 0.3 mg IM Q5-15M PRN (Reason: anaphylaxis) Qty: 2 0RF Rx Instructions: do not exceed 3 doses per episode Follow-up/Referrals: Giovanni,Kameron [Other] Time of Disposition: 10:19 Quality NIHSS Nursing Documentation ED NIHSS nursing documentation: reviewed/agree
[2025-09-18 09:55] VITALS: BP 117/85; PULSE 102; RESP 16; TEMP 36.8; O2SAT 100
[2025-09-18 10:17] LABS: EDCOVIDSCREEN Negative (Negative); EDINFLUASCREEN Negative (Negative); EDINFLUBSCREEN Negative (Negative); EDSTREPNEGPOS1 Negative (Negative)
== END 2025-09-18 10:21 | disposition home or self-care (01) ==
PROVIDERS: Emergency Provider Nurse Practitioner Family
DX: B34.9 Viral infection, unspecified (principal); J06.9 Acute upper respiratory infection, unspecified; J02.9 Acute pharyngitis, unspecified; Z20.822 Contact with and (suspected) exposure to COVID-19; J45.909 Unspecified asthma, uncomplicated
CPT/HCPCS: 87081; 87426; 87804; 87880; 99213; G0463